=== PATIENT | male | born 1950 | race Caucasian/White ===

== ENCOUNTER 2020-01-31 08:24 | Outpatient (CLI) | payer MEDICARE, OTHER, SELFPAY ==
[2020-01-31 08:49] VITALS: BMI 28.3
--- NOTE | 2020-01-31 08:49 | ECG_ITS ---
NAME OF STUDY: LEXISCAN SESTAMIBI STRESS TEST INDICATION: SOB, WORSENING CHEST PRESSURE, NOTE: Please note that this is the electrocardiogram portion of the Lexiscan/Sestamibi stress test. The perfusion scan will be documented separately. DATA: Baseline heart rate was 88 beats per minute. Baseline blood pressure was 159/81 millimeters of mercury. Target heart rate was 148. Maximum heart rate achieved was 102. which was 68 % of the predicted target heart rate. Maximum blood pressure was 172 millimeters of mercury. The reason for ending the test was completion of the protocol. The patient did not experience any symptoms. ELECTROCARDIOGRAM: BASELINE: Sinus rhythm. Normal axis. Otherwise, no ST-T changes suggestive of ischemia noted. No arrhythmia noted. EXERCISE: After Lexiscan injection, no ST-T changes suggestive of ischemic noted. No arrhythmia noted. 1. EKG not suggestive of ischemia 2. Lexiscan injection unremarkable. 3. Perfusion scan will be documented separately. Electronically Signed On 02-03-2020 18:38:48 CDT by Anne Cervantes M.D. [email or web address]
--- NOTE | 2020-01-31 08:49 | NMCV_ITS ---
NM ajay perf SPECT r/s* [id number] Gm Jean Age: 70 Gender: M : 1950 Exam Date: 01/31/2020 09:45 Ordering Phys: Anne Cervantes MD ([email or web address]) Technologist: BETTINA Stacy Exam Location: [facility] Indications: SOB WORSENING CHEST PRESSURE STRESS TEST Please [facility] IMAGE PROTOCOL Rest/Stress 1 Lexiscan Day Radiopharmaceutical Dose (mCi) Administration Site Administered by Rest: Tc-99m 10.6 IV BETTINA Melendrez Sestamibi Stress:Tc-99m 33.0 IV BETTINA Melendrez Sestamibi Rest: 31-Jan-2020 60 Discovery 630 Stress: 31-Jan-2020 30 Discovery 630 0.4mg Lexiscan. Images obtained in supine and prone position. SPECT RESULTS Technical Quality: Excellent Raw Data Analysis: Normal Image Corrections: No attenuation or motion correction applied Summed Stress Score: 3 Summed Rest Score: 4 Summed Difference Score: 0 PERFUSION FINDINGS Medium-sized area of patchy persistently decreased tracer uptake noted in basal to distal inferior wall suggestive of old myocardial infarction versus scarring. FUNCTIONAL RESULTS (calculated via Gated SPECT) Stress Image LV EF (%): 64 Stress EDV (mL):97 TID: 0.95 Stress ESV (mL):35 Rest Image LV EF (%): 64 FUNCTIONAL FINDINGS: There is normal left ventricular systolic function. IMPRESSIONS Medium-size area of persistently decreased tracer uptake noted in basal to distal inferior wall suggestive of old myocardial infarction versus scarring however cannot rule out artifact as well. EKG segment will be documented separately Anne Cervantes MD (Electronically Signed) Final Date: 31 Jan 2020 16:00 S
--- NOTE | 2020-01-31 10:32 | PC.NURSE ---
STRESS TEST NOTE THE PATIENT WAS UNABLE TO REACH HIS TARGET HR ON THE TREADMILL DUE TO HIS LEGS WEARING OUT AND SOB. DR EASON WAS NOTIFIED AND ORDERS WERE RECEIVED TO CHANGE THE TEST TO A LEXISCAN SESTAMIBI IF THE PATIENT WAS AGREEABLE. THE LEXISCAN WAS EXPLAINED TO THE PATIENT AND HE WISHED TO PROCEED WITH LEXISCAN.
[2020-01-31] MEDS: regadenoson 0.4 Mg/5 ml Syringe IVP (10:43)
[2020-01-31 10:55] VITALS: BP 160/70; PULSE 89
== END 2020-01-31 08:25 | disposition home or self-care (01) ==
LOC: RAD 08:28
PROVIDERS: Visit Provider Internal Medicine Cardiovascular Disease
DX: R06.02 Shortness of breath (principal); R07.89 Other chest pain
CPT/HCPCS: 78452; 93017; A9500; J2785

== ENCOUNTER 2021-08-24 14:47 | Outpatient (RCR) | payer MEDICARE, OTHER, SELFPAY | END 2021-08-24 23:59 | disposition home or self-care (01) | LOC: SPT 14:47 | PROVIDERS: PCP Internal Medicine; Referring Provider Orthopaedic Surgery; Visit Provider Orthopaedic Surgery | DX: M75.82 Other shoulder lesions, left shoulder (principal); M75.81 Other shoulder lesions, right shoulder | CPT/HCPCS: 97110; 97162 ==

== ENCOUNTER 2021-08-25 06:00 | Outpatient (RCR) | payer MEDICARE, OTHER, SELFPAY | END 2021-09-24 23:59 | disposition home or self-care (01) | LOC: SPT 06:00 | PROVIDERS: PCP Internal Medicine; Referring Provider Orthopaedic Surgery; Visit Provider Orthopaedic Surgery | DX: M75.82 Other shoulder lesions, left shoulder (principal); M75.81 Other shoulder lesions, right shoulder | CPT/HCPCS: 97110 ==

== ENCOUNTER 2022-04-23 12:19 | Inpatient (IN) | payer MEDICARE, OTHER, SELFPAY ==
[2022-04-23] VITALS (18 sets, daily range): BP systolic 130–226; BP diastolic 71–97; PULSE 55–77; RESP 10–18; TEMP 36.3–36.4; O2SAT 96–100; BMI 26.4; BMI 28.0
[2022-04-23 12:56] LABS: Glucose Point of Care 283 mg/dL (70-110)
--- NOTE | 2022-04-23 13:25 | CTR_ITS ---
PROCEDURE INFORMATION: Exam: CT Head Without Contrast Exam date and time: 04/23/2022 1:53 PM Age: 72 years old Clinical indication: Altered mental status/memory loss; Confusion or disorientation; TECHNIQUE: Imaging protocol: Computed tomography of the head without contrast. Radiation optimization: All CT scans at this facility use at least one of these dose optimization techniques: automated exposure control; mA and/or kV adjustment per patient size (includes targeted exams where dose is matched to clinical indication); or iterative reconstruction. COMPARISON: CT head wo con* [id number] 09/24/2019 9:06 AM RADIATION DOSE METRICS: Total DLP (mGy-cm): 1079.88 FINDINGS: Brain: There is diffuse cerebral atrophy present, consistent with this patient's age. Periventricular and subcortical white matter low densities are present which at this age likely represent microvascular ischemic change. There are chronic lacunar infarcts in the left basal ganglia and left thalamus.No evidence for large acute ischemic infarction. Please note acute ischemia can be occult by head CT. Cerebral ventricles: No ventriculomegaly. Paranasal sinuses: Visualized sinuses are unremarkable. No fluid levels. Mastoid air cells: Visualized mastoid air cells are well aerated. Bones/joints: Unremarkable. No acute fracture. Soft tissues: Unremarkable. CT/CT head wo con* [id number] IMPRESSION: There are senescent changes of the brain as described above. No evidence for large acute ischemic infarction or acute intracranial injury.
--- NOTE | 2022-04-23 13:25 | XRR_ITS ---
PROCEDURE INFORMATION: Exam: XR Chest Exam date and time: 04/23/2022 2:36 PM Age: 72 years old Clinical indication: Cough and dyspnea; Additional info: Dyspnea/cough TECHNIQUE: Imaging protocol: Radiologic exam of the chest. Views: 1 view. COMPARISON: No relevant prior studies available. FINDINGS: Lungs: Unremarkable. No consolidation. Pleural spaces: Unremarkable. No pleural effusion. No pneumothorax. Heart/Mediastinum: Unremarkable. No cardiomegaly. Bones/joints: Unremarkable. XR/XR chest 1V portable [id number] IMPRESSION: No acute findings.
--- NOTE | 2022-04-23 13:25 | ECG_ITS ---
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 Measurements Intervals [place] Rate: 55 P: 11 MN: 232 QRS: -15 QRSD: 128 T: -12 QT: 432 QTc: 416 Interpretive Statements SINUS BRADYCARDIA WITH FIRST DEGREE AV BLOCK MINIMAL VOLTAGE CRITERIA FOR LVH, CONSIDER NORMAL VARIANT [MEETS CRITERIA IN ONE OF: R(aVL), S(V1), R(V5), R(V5/V6)+S(V1)] INFERIOR MYOCARDIAL INFARCTION , OF INDETERMINATE AGE [40+ ms Q WAVE AND/OR ST/T ABNORMALITY IN II/aVF] Possible old anteroseptal myocardial infarction, probably old Compared to ECG 08/20/2016 03:23:01 Sinus rhythm no longer present Myocardial infarct finding still present Electronically Signed On 04-24-2022 10:31:58 CDT by Margarito Spangler M.D. [id number]
--- NOTE | 2022-04-23 13:27 | ED_ITS ---
HPI - Altered Mental Status General: Chief Complaint: Altered Mental Status Stated Complaint: Diabetic, not eating, or taking meds Time Seen by Provider: 04/23/22 13:24 Source: patient Mode of arrival: ambulatory Limitations: altered mental status History of Present Illness: 72 yo male presents to the ER with complaints of AMS. Patient arrives in the ER with a friend. Evidently he went to their house which was quite some distance away he drove but was unable to get all get himself all the way there he stopped and got direction from somebody also help to get him to their home. They were aware that he was diabetic and thought it was a diabetic issue they fed him last night he seemed to be okay this morning but then went to begin eating again it became a problem. While he was eating this morning and progressive worsening of level of consciousness and awareness. On arrival here he knows where he is at but is not oriented to time person or purpose. He denies any chest pain or shortness of breath his initial glucose on Accu-Chek is 283. MD complaint: altered mental status Severity: mild Consistency of symptoms: Getting Worse Review of Systems Const: Denies: fever(s), chills, body aches, change in appetite, fatigue or malaise ENMT: Denies: throat pain, ear or mastoid pain, nasal discharge or nasal congestion Card: Denies: chest pain, palpitations, edema, dyspnea on exertion or orthopnea Resp: Denies: dyspnea, productive cough or non-productive cough GI: Denies: abdominal pain, nausea, vomiting, hematemesis, coffee ground emesis, diarrhea, constipation, bloating, hematochezia or melena : Denies: flank pain, dysuria, urinary frequency or urinary urgency Skin/Breast: Denies: rash or pruritus PFSH ED PFSH: Medical History B12 deficiency Coronary artery disease Diabetes mellitus GERD (gastroesophageal reflux disease) History of MD (myocardial infarction) HTN (hypertension) IBS (irritable bowel syndrome) Surgical History S/P coronary angiogram S/P vasectomy Family History Mother Stroke Hypertension Father Hypertension Dementia Family/Other Cancer Social History Smoking and tobacco status: never smoked Alcohol intake: never History of recent travel: No Physical Exam Const: EXAM LIMITATIONS: altered mental status GENERAL APPEARANCE: cooperative and comfortable ORIENTATION/CONSCIOUSNESS: Yes awake, Yes oriented to place and Yes confused; not oriented to person and not oriented to time HENMT: COMMON NORMALS: normocephalic and atraumatic HEAD & SCALP: normocephalic and atraumatic Eye: COMMON NORMALS: Equal, round and reactive pupils present, EOMs intact bilaterally, conjunctivae normal and no scleral icterus CONJUNCTIVA: Yes conjunctivae normal PUPIL: Yes Equal, round and reactive pupils present Neck/C-Spine: COMMON NORMALS: full ROM, no lymphadenopathy, supple, no meningeal signs and no JVD GENERAL: Yes normal visual inspection, Yes trachea midline, No anterior neck swelling and No lymphadenopathy Lymph: LYMPHATIC: no lymphadenopathy noted Resp: COMMON NORMALS: normal respiratory effort, No retractions, No use of accessory muscles and clear to auscultation bilaterally AUSCULTATION: clear to auscultation bilaterally Cardio: COMMON NORMALS: no JVD, regular rate and No murmurs present (Cardio) RATE: regular rate GI: COMMON NORMALS: Normal to inspection, nondistended, normoactive bowel sounds present, Soft to palpation, non-tender, No hepatosplenomegaly present, no masses and no bruits PALPATION: Yes Soft to palpation, No Tenderness to palpation present (GI), No Guarding due to palpation present (GI) and Yes No hepatosplenomegaly present Extremity: COMMON NORMALS: normal to inspection, full ROM, capillary refill normal, no clubbing, cyanosis or edema, no calf tenderness and no pedal edema Neuro: SENSORIUM/ORIENTATION: No oriented to person, Yes oriented to place and No oriented to time MENINGEAL SIGNS: Yes no meningeal signs Course Vital Signs: Vital signs: Vital Signs Temperature 98.1 F 04/27/22 15:57 Pulse Rate 64 04/27/22 15:57 Respiratory Rate 16 04/27/22 15:57 Blood Pressure 160/77 04/27/22 15:57 Pulse Oximetry 99 04/27/22 15:57 Oxygen Delivery Me thod 04/27/22 12:00 Oxygen Flow Rate 95 04/24/22 19:43 MDM - Altered Mental Status Medical Decision Making Labs imaging and EKG reviewed. Patient is not a candidate for any kind intervention is well outside of the window. Will admit for altered mental status acute may be due to press for this hypertension. Discussed with hospitalist orders written Medical Records I reviewed the patient's medical records. Lab Data I reviewed the patient's lab results. : 04/27/22 04:43 04/27/22 04:43 Radiology Impressions Chest X-Ray 04/23/22 13:25 IMPRESSION: No acute findings. Head/Neck CTA 04/23/22 14:00 IMPRESSION: No large vessel stenosis or occlusion. IMPRESSION: No stenosis or occlusion. REFERENCES: NASCET CRITERIA. The degree of internal carotid artery stenosis is based on NASCET criteria. Normal is no stenosis. Mild is less than 50% stenosis. Moderate is 50-69% stenosis. Severe is 70% to 99% stenosis. Total occlusion is no detectable patent lumen. Head MRI 04/23/22 16:39 IMPRESSION: 1. There is a 2 mm acute lacunar infarct in the left thalamus. 2. Senescent changes are present the brain as described above. ADDENDUM: 04/23/221927 CRITICAL RESULT: The study was personally discussed on the telephone with Dr. Burgos on 04/23/2022 7:25 PM CDT. The results were understood and acknowledged. Head CT 04/24/22 11:14 IMPRESSION: Evolving tiny infarct in the left thalamus. No acute hemorrhage or other acute findings. Laboratory Results WBC 5.1 10^3/uL (4.0-10.0) 04/24/22 04:33 RBC 4.38 10^6/uL (4.1-5.3) 04/24/22 04:33 Hgb 13.8 g/dL (11.7-16.6) 04/24/22 04:33 Hct 39.8 % (42.0-52.0) L 04/24/22 04:33 MCV 90.9 fl (80-94) 04/24/22 04:33 MCH 31.5 pg (28.0-34.0) 04/24/22 04:33 MCHC 34.7 g/dL (30.0-36.0) 04/24/22 04:33 RDW 12.3 % (12.1-15.1) 04/24/22 04:33 Plt Count 161 10^3/cmm (130-400) 04/24/22 04:33 MPV 10.5 fL (7.4-10.4) H 04/24/22 04:33 Neut % (Auto) 43.6 % 04/24/22 04:33 Lymph % (Auto) 45.3 % 04/24/22 04:33 Ware % (Auto) 8.3 % 04/24/22 04:33 Eos % (Auto) 2.0 % 04/24/22 04:33 Baso % (Auto) 0.6 % 04/24/22 04:33 Neut # (Auto) 2.22 10^3/uL (1.8-7.7) 04/24/22 04:33 Lymph # (Auto) 2.3 10^3/uL (0.8-4.8) 04/24/22 04:33 Ware # (Auto) 0.4 10^3/uL (0.2-0.9) 04/24/22 04:33 Eos # (Auto) 0.1 10^3/uL (0.0-0.8) 04/24/22 04:33 Baso # (Auto) 0.0 10^3/uL (0.0-0.1) 04/24/22 04:33 Nucleated RBC % (auto) 0 % 04/24/22 04:33 Nucleated RBCs # 0.0 /100WBC 04/24/22 04:33 ESR 5 mm/hr (0-10) 04/23/22 13:49 Specimen Type Arterial 04/23/22 14:30 Sample Site Brachial, right 04/23/22 14:30 ABG pH 7.43 (7.35-7.45) 04/23/22 14:30 ABG pCO2 36.5 mmHg (35-45) 04/23/22 14:30 ABG pO2 96.8 mmHg (80.0-100.0) 04/23/22 14:30 ABG HCO3 24.3 mmol/L (22-26) 04/23/22 14:30 ABG O2 Saturation 97.2 04/23/22 14:30 ABG Base Excess 0.3 mmol/L (-2.0-2.0) 04/23/22 14:30 Jagdish Test N/a 04/23/22 14:30 A-a O2 Gradient 1.0 mmHg (5-10) L 04/23/22 14:30 Hematocrit 43.4 % (42-52) 04/23/22 14:30 Hgb O2 Saturation 96.0 % (95-100) 04/23/22 14:30 Carboxyhemoglobin 0.2 %THgb (0.4-20.1) L 04/23/22 14:30 Methemoglobin 1.0 % (0.4-1.5) 04/23/22 14:30 Total Hemoglobin 14.2 g/dL (14-18) 04/23/22 14:30 Sodium 137.0 mmol/L (131-143) 04/23/22 14:30 Potassium 4.3 mmol/L (3.5-5.0) 04/23/22 14:30 Glucose 298.0 mg/dL (70-115) H 04/23/22 14:30 Ionized Calcium 1.2 mmol/L (1.1-1.4) 04/23/22 14:30 O2 Delivery Device Room air 04/23/22 14:30 President [employer] ID Maria Del Rosario 04/23/22 14:30 Sodium 141 mmol/L (136-145) 04/24/22 04:26 Potassium 3.8 mmol/L (3.5-5.1) 04/24/22 04:26 Chloride 104 mmol/L (98-107) 04/24/22 04:26 Carbon Dioxide 23 mmol/L (22-29) 04/24/22 04:26 Anion Gap 17.8 (5-19) 04/24/22 04:26 BUN 21 mg/dL (8-23) 04/24/22 04:26 Creatinine 0.9 mg/dL (0.7-1.2) 04/24/22 04:26 GFR Calculation Not Reportable 04/24/22 04:26 Glucose 143 mg/dL (65-115) H 04/24/22 04:26 POC Glucose 321 mg/dL (70-110) H 04/24/22 11:43 Estimat Average Glucose 232 04/23/22 13:49 Hemoglobin A1c 9.7 % (4.0-6.0) H 04/23/22 13:49 Calculated Osmolality 297 mOsm/kg (285-295) H 04/24/22 04:26 Lactic Acid 2.6 mmol/L (0.5-2.2) H 04/23/22 14:35 Lactic Acid (Sepsis) 2.0 mmol/L (0.5-2.2) 04/23/22 19:40 Calcium 9.3 mg/dL (8.5-10.5) 04/24/22 04:26 Phosphorus Cancelled 04/24/22 04:33 Magnesium Cancelled 04/24/22 04:33 Total Bilirubin 0.6 mg/dL (0.15-1.2) 04/24/22 04:26 AST 19 U/L (0-40) 04/24/22 04:26 ALT 20 U/L (0-41) 04/24/22 04:26 Alkaline Phosphatase 70 IU/L (40-130) 04/24/22 04:26 Ammonia 14 umol/L (16-60) L 04/23/22 22:01 Troponin T Baseline 21 ng/L (0-15) H 04/23/22 13:49 Troponin T 120 Minute Cancelled 04/23/22 19:40 Delta Troponin T Cancelled 04/23/22 19:40 Troponin T Hi Sens 6Hr 24.23 ng/L (0-15) H 04/23/22 19:40 Troponin T Hi Sens 6Hr Delta 3.23 ng/L (0-12) 04/23/22 19:40 C-Reactive Protein 3.0 mg/L (0.0-4.9) 04/23/22 13:49 NT-Pro-B Natriuret Pep Cancelled 04/24/22 04:33 Total Protein 6.0 g/dL (6.6-8.7) L 04/24/22 04:26 Albumin 3.8 g/dL (3.5-5.2) 04/24/22 04:26 Globulin 2.2 g/dL (1.3-4.6) 04/24/22 04:26 Triglycerides Cancelled 04/24/22 04:33 Cholesterol Cancelled 04/24/22 04:33 LDL Cholesterol, Calc Cancelled 04/24/22 04:33 HDL Cholesterol Cancelled 04/24/22 04:33 LDL/HDL Ratio Cancelled 04/24/22 04:33 Cholesterol/HDL Ratio Cancelled 04/24/22 04:33 Procalcitonin 0.04 ng/mL (0-0.5) 04/23/22 13:49 TSH 3.09 uIU/mL (0.27-4.20) 04/23/22 13:49 Urine Color Yellow (Yellow) 04/23/22 14:08 Urine Appearance Clear (CLEAR) 04/23/22 14:08 Urine pH 5 (5-7) 04/23/22 14:08 Ur Specific [place] 1.015 (1.005-1.030) 04/23/22 14:08 Urine Protein Neg (Negative) 04/23/22 14:08 Urine Glucose (UA) 4+ (Normal) H 04/23/22 14:08 Urine Ketones Negative (Negative) 04/23/22 14:08 Urine Blood Neg (Negative) 04/23/22 14:08 Urine Nitrate Negative (Negative) 04/23/22 14:08 Urine Bilirubin Neg (Negative) 04/23/22 14:08 Urine Urobilinogen Norm mg/dL (Negative) 04/23/22 14:08 Ur Leukocyte Esterase Negative (Negative) 04/23/22 14:08 Salicylates < 0.3 mg/dL (3-10) L 04/23/22 13:49 Urine Opiates Screen Negative ng/mL (Negative) 04/23/22 23:30 Acetaminophen < 5.0 ug/mL (10-30) L 04/23/22 13:49 Ur Barbiturates Screen Negative ng/mL (Negative) 04/23/22 23:30 Ur Phencyclidine Scrn Negative ng/mL (Negative) 04/23/22 23:30 Ur Amphetamines Screen Negative ng/mL (Negative) 04/23/22 23:30 U Benzodiazepines Scrn Negative ng/mL (Negative) 04/23/22 23:30 Urine Cocaine Screen Negative ng/mL (Negative) 04/23/22 23:30 U Marijuana (THC) Screen Negative ng/mL (Negative) 04/23/22 23:30 Ethyl Alcohol < 10 mg/dL (0-10) 04/23/22 13:49 Serum Ketones Negative (Negative) 04/23/22 13:49 Discharge Plan Discharge Patient Disposition: Admitted As Inpatient Admit Provider: Darnell Miranda Clinical Impression: Delirium due to general medical condition, PRES (posterior reversible encephalopathy syndrome), HTN (hypertension), Diabetic peripheral neuropathy associated with type 2 diabetes mellitus Condition: Stable Discharge Diet: Cardiac and Diabetic Discharge Activity: Increase activity as tolerated, Limit activity as instructed and As per PT/OT instructions Coding Level of Care Code 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
--- NOTE | 2022-04-23 14:00 | CTR_ITS ---
PROCEDURE INFORMATION: Exam: CTA Head With Contrast, Arteriography Exam date and time: 04/23/2022 3:29 PM Age: 72 years old Clinical indication: Other: AMS - confusion TECHNIQUE: Imaging protocol: Computed tomographic angiography of the head with contrast. Exam focused on the arteries. 3D rendering (Not supervised by radiologist): MIP and/or 3D reconstructed images were created by the technologist. Radiation optimization: All CT scans at this facility use at least one of these dose optimization techniques: automated exposure control; mA and/or kV adjustment per patient size (includes targeted exams where dose is matched to clinical indication); or iterative reconstruction. Contrast material: OMNI 350; Contrast volume: 95 ml; Contrast route: INTRAVENOUS (IV); COMPARISON: CT head wo con* [id number] 04/23/2022 1:53 PM RADIATION DOSE METRICS: Total DLP (mGy-cm): 415.02 FINDINGS: ANTERIOR CIRCULATION: Right internal carotid artery: There is scattered atherosclerotic plaque in the carotid siphons with luminal irregularity however no significant focal stenosis. Intracranial segment is patent with no significant stenosis. No aneurysm. Right middle cerebral artery: Unremarkable. No occlusion or significant stenosis. No aneurysm. Right anterior cerebral artery: Unremarkable. No occlusion or significant stenosis. No aneurysm. Left internal carotid artery: There is scattered atherosclerotic plaque in the carotid siphons with luminal irregularity however no significant focal stenosis. Intracranial segment is patent with no significant stenosis. No aneurysm. Left middle cerebral artery: Unremarkable. No occlusion or significant stenosis. No aneurysm. Left anterior cerebral artery: Unremarkable. No occlusion or significant stenosis. No aneurysm. POSTERIOR CIRCULATION: Right vertebral artery: Unremarkable. No occlusion or significant stenosis. No aneurysm. Left vertebral artery: Unremarkable. No occlusion or significant stenosis. No aneurysm. Basilar artery: Unremarkable. No occlusion or significant stenosis. No aneurysm. Right posterior cerebral artery: Unremarkable. No occlusion or significant stenosis. No aneurysm. Left posterior cerebral artery: Unremarkable. No occlusion or significant stenosis. No aneurysm. Brain: No definite mass, mass effect, or midline shift. Cerebral ventricles: No ventriculomegaly. Bones/joints: Unremarkable. No acute fracture. Soft tissues: Unremarkable. PROCEDURE INFORMATION: Exam: CTA Neck With Contrast Exam date and time: 04/23/2022 3:29 PM Age: 72 years old Clinical indication: Other: AMS - confusion TECHNIQUE: Imaging protocol: Computed tomographic angiography of the neck with contrast. 3D rendering (Not supervised by radiologist): MIP and/or 3D reconstructed images were created by the technologist. Radiation optimization: All CT scans at this facility use at least one of these dose optimization techniques: automated exposure control; mA and/or kV adjustment per patient size (includes targeted exams where dose is matched to clinical indication); or iterative reconstruction. Contrast material: OMNI 350; Contrast volume: 95 ml; Contrast route: INTRAVENOUS (IV); COMPARISON: CT head wo con* [id number] 04/23/2022 1:53 PM RADIATION DOSE METRICS: Total DLP (mGy-cm): 415.02 FINDINGS: Right common carotid artery: No stenosis. No dissection or occlusion. Right internal carotid artery: No stenosis of the extracranial segment. No dissection or occlusion. Right external carotid artery: No occlusion or stenosis of the origin. Left common carotid artery: No stenosis. No dissection or occlusion. Left internal carotid artery: No stenosis of the extracranial segment. No dissection or occlusion. Left external carotid artery: No occlusion or stenosis of the origin. Right vertebral artery: No stenosis. No dissection or occlusion. Left vertebral artery: No stenosis. No dissection or occlusion. Soft tissues: Normal. No significant soft tissue swelling. Bones/joints: No acute fracture. CT/CT angio headneck* [id number] IMPRESSION: No large vessel stenosis or occlusion. IMPRESSION: No stenosis or occlusion. REFERENCES: NASCET CRITERIA. The degree of internal carotid artery stenosis is based on NASCET criteria. Normal is no stenosis. Mild is less than 50% stenosis. Moderate is 50-69% stenosis. Severe is 70% to 99% stenosis. Total occlusion is no detectable patent lumen.
[2022-04-23 14:03] LABS: Basophils % 0.8 %; Eosinophils # 0.1 10^3/uL (0.0-0.8); Eosinophils % 1.8 %; Hematocrit 42.5 % (42.0-52.0); Hemoglobin 14.5 g/dL (11.7-16.6); Lymphocytes # 1.7 10^3/uL (0.8-4.8); Lymphocytes % 33.7 %; Mean Corpuscular HGB Conc 34.1 g/dL (30.0-36.0); Mean Corpuscular Hemoglobin 31.3 pg (28.0-34.0); Mean Corpuscular Volume 91.6 fl (80-94); Mean Platelet Volume 10.5 fL (7.4-10.4); Monocytes # 0.4 10^3/uL (0.2-0.9); Neutrophils # 2.83 10^3/uL (1.8-7.7); Neutrophils % 56.5 %; Nucleated Red Blood Cells % 0 %; Platelet Count 164 10^3/cmm (130-400); Red Blood Count 4.64 10^6/uL (4.1-5.3); Red Cell Distribution Width 12.3 % (12.1-15.1)
[2022-04-23 14:14] LABS: Add Urine Microscopic? NO; Charge for UA Resulting for Rev
--- NOTE | 2022-04-23 14:29 | PC.PHAR ---
pt is unable to verify medications - pt states he fills at [facility] in [place] - [facility] states last fill was Isosorbide [place] ER 30mg 1/2 tablet BID on 11/05/20, Farxiga last filled in 2019 (never picked up), Glipizide XL 10mg once daily and Metformin ER 500mg 2BID in 2019 (never picked up)
[2022-04-23 14:31] LABS: Bilirubin Urine Neg (Negative); Blood Urine Neg (Negative); Glucose Urine UA 4+ (Normal); Ketones Urine Negative (Negative); Nitrate Urine Negative (Negative); Protein Urine Neg (Negative); Specific Gravity, Urine 1.015 (1.005-1.030); Urine Appearance Clear (CLEAR); Urine Color Yellow (Yellow); pH Urine 5 (5-7)
[2022-04-23 14:32] LABS: Leukocyte Esterase Urine Negative (Negative); Urobilinogen Urine Norm (Negative)
[2022-04-23 14:36] LABS: ABG PCO2 36.5 mmHg (35-45); ABG PH Result 7.43 (7.35-7.45); Arterial Blood Gas Hematocrit 43.4 % (42-52); Base Excess ABG 0.3 mmol/L (-2.0-2.0); Blood Gas Sample Site Brachial, right; Blood Gas Sample Type Arterial; Carboxyhemoglobin 0.2 %THgb (0.4-20.1); HCO3 ABG 24.3 mmol/L (22-26); Ionized Calcium Level - ABG 1.2 mmol/L (1.1-1.4); Oxygen Device ROOM AIR; Oxygen Saturation ABG 97.2; PO2 ABG 96.8 mmHg (80.0-100.0); Potassium Level - ABG 4.3 mmol/L (3.5-5.0); Total Hemoglobin 14.2 g/dL (14-18)
[2022-04-23 14:40] LABS: Alanine Aminotransferase 24 U/L (0-41); Albumin Level 4.1 g/dL (3.5-5.2); Alkaline Phosphatase 79 IU/L (40-130); Blood Urea Nitrogen 22 mg/dL (8-23); Calcium 9.3 mg/dL (8.5-10.5); Carbon Dioxide 25 mmol/L (22-29); Chloride 97 mmol/L (98-107); Globulin 2.6 g/dL (1.3-4.6); Glucose 270 mg/dL (65-115); Osmolality Calculated 293 mOsm/kg (285-295); Sodium 135 mmol/L (136-145); Total Bilirubin 0.9 mg/dL (0.15-1.2); Total Protein 6.7 g/dL (6.6-8.7)
[2022-04-23 14:41] LABS: Troponin(5th) Baseline 21 ng/L (0-15)
[2022-04-23 14:48] LABS: Anion Gap 17.5 (5-19); Aspartate Amino Transferase 21 U/L (0-40); Potassium 4.5 mmol/L (3.5-5.1)
[2022-04-23 15:02] LABS: Lactic Sepsis W/Reflex 2.6 mmol/L (0.5-2.2)
[2022-04-23 15:34] LABS: Ketone (Acetest) Serum Negative (Negative)
[2022-04-23] MEDS: iohexol 350 mg/mL 100 mL Btl IV (15:35)
[2022-04-23 16:25] LABS: Reflex Lactate Order REFLEX LACTIC ORDERD
--- NOTE | 2022-04-23 16:33 | PC.NURSE ---
Daughter- Mena Jean [phone] Son- Gm Jean [phone] Family friend who brought Gm to - Dania Simmons [phone]
[2022-04-23] MEDS: hyDRALAzine 20 mg/mL INJ 1 mL 10 MG IVP (16:35)
[2022-04-23] MEDS: amlodipine 10 mg Tablet PO (16:35)
--- NOTE | 2022-04-23 16:39 | MRR_ITS ---
PROCEDURE INFORMATION: Exam: MR Head Without Contrast Exam date and time: 04/23/2022 6:25 PM Age: 72 years old Clinical indication: Altered mental status/memory loss; Additional info: Pres syndrome TECHNIQUE: Imaging protocol: Magnetic resonance imaging of the head without contrast. COMPARISON: CT head wo con* [id number] 04/23/2022 1:53 PM FINDINGS: Brain: There is 2 mm focus of restricted diffusion at the posterior aspect of the left thalamus with associated increased T2 and FLAIR signal, consistent with an acute lacunar infarct. There are small chronic lacunar infarcts in the right centrum semiovale and left lentiform nucleus. No large wedge-shaped acute ischemic infarction. There is diffuse cerebral atrophy present, consistent with this patient's age. There are multiple foci of high T2 and FLAIR signal in the periventricular and subcortical white matter of the bilateral cerebral hemispheres, which at this age likely represent microvascular ischemic changes. Cerebral ventricles: Normal. No ventriculomegaly. Bones/joints: Unremarkable. Paranasal sinuses: There is mucosal thickening in the right sphenoid sinus. Mastoid air cells: Normal as visualized. No mastoid effusion. Orbital cavities: Unremarkable. Soft tissues: Unremarkable. MR/MR head wo con* [id number] IMPRESSION: 1. There is a 2 mm acute lacunar infarct in the left thalamus. 2. Senescent changes are present the brain as described above.
--- NOTE | 2022-04-23 16:41 | P.HP_ITS ---
Providers/Chief Complaint Admitting Physician: Darnell Miranda MD Primary Care Provider: Иван Chamberlain DO Chief Complaint: Diabetic, not eating, or taking meds History of Present Illness Gm Jean is a 72 year old male with a past medical history of nonobstructive CAD, had an angiogram which showed 40% LAD disease, obtuse marginal 1 had 60 to 70% disease, RCA had 60% disease, on medical management, hypertension, he is not really taking any medications, [id number] type 2 diabetes mellitus, who presents [facility] for acute confusion. Currently patient is alert to person, place, not to time, tells me [place] is a president, he does not remember what he had for breakfast this morning, he does not really remember the events of yesterday, he does not remember his address, he recognizes his friend Dania at bedside, a lot of his memory is foggy, has short-term memory loss, long-term memory loss no facial droop no slurring of words, no facial process, no focal weakness, at times does have trouble following commands, but eventually gets most of my questions correctly, such as squeezing my fingers, wiggling his toes, no facial droop no slurring of his words, no focal weakness, currently blood pressures 190s over 90, normal sinus rhythm, 100% on room air, afebrile, no neck pain, neck stiffness, no shortness of breath, no dysuria, hematuria, no abdominal pain, no diarrhea, recent antibiotic use, no drug use, does not for drinking 2 beers last night, Dania at bedside confirms, there was a a gathering he attended yesterday, but he cannot really remember who attended a gathering, some of them were not he does remember he had catfish yesterday, he is not really taking her medication, not sure why, not taking any anticoagulations, does not take any diabetic medications, yesterday evening. 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 They were worried about him going home, so he slept over, this morning he continued to have episodes of confusion, no seizure-like episodes no strokelike symptoms, so they gave him something to eat, but that seemed to make his symptoms worse. Recently patient's back in August. Does report drinking 2 beers yesterday, denies a history of alcoholism, denies any drug use, denies taking any medications he is not supposed to take, he tells me in fact he does not like taking medication Review of Systems 2 Const: Denies: fever(s) Eyes: Reports: change in vision and blurry vision Card: Denies: chest pain Resp: Denies: dyspnea GI: Denies: abdominal pain : Denies: dysuria Musc: Reports: back pain Skin/Breast: Denies: rash Neuro: Reports: confusion and behavioral changes; Denies: headache(s), numbness in extremities, weakness in extremities, sensory changes, lack of coordination, difficulty walking, frequent falls, dizziness, Slurred speech present, difficulty communicating thoughts or seizure-like activity Medications/Allergies Home Medications Medication Instructions Recorded Confirmed Last Taken Type No Known Home Medications 04/23/22 04/23/22 Unknown History Allergies Allergy/AdvReac Type Severity Reaction Status Date / Time Penicillins Allergy Unknown Unknown Verified 07/06/21 10:18 PFSH Acute PFSH: Medical History (Updated 04/23/22 @ 16:47 by Darnell Miranda MD) Coronary artery disease Diabetes mellitus GERD (gastroesophageal reflux disease) History of PR (myocardial infarction) HTN (hypertension) IBS (irritable bowel syndrome) Surgical History (Updated 04/23/22 @ 16:46 by Darnell Miranda MD) S/P coronary angiogram S/P vasectomy Family History Mother Stroke Hypertension Father Hypertension Dementia Family/Other Cancer Social History Smoking and tobacco status: never smoked Vitals/I&O/Wt Last Vital Signs Temp 97.3 F L 04/23/22 12:50 Pulse 59 L 04/23/22 16:23 Resp 16 04/23/22 16:23 BP 194/91 04/23/22 16:23 Pulse Ox 99 04/23/22 16:23 O2 Del Method 04/23/22 16:23 Weight last 48 hrs Weight 90.718 kg Physical Exam Const: COMMON NORMALS: no acute distress OTHER: Alert to person, to place he knows in the hospital, does not know which town he is in, does not know the date, thinks [place] is a president, has short-term memory loss, long-term memory loss, does have trouble following commands, but eventually does follow neurologic testing HENMT: COMMON NORMALS: normocephalic HEAD & SCALP: normocephalic Neck/C-Spine: COMMON NORMALS: no JVD Resp: COMMON NORMALS: normal respiratory effort, No retractions, No use of accessory muscles and clear to auscultation bilaterally AUSCULTATION: clear to auscultation bilaterally Cardio: COMMON NORMALS: no JVD, regular rate, regular rhythm, S1 normal heart sound present and S2 normal heart sound present RATE: regular rate RHYTHM: regular rhythm HEART SOUNDS: S1 normal heart sound present and S2 normal heart sound present GI: COMMON NORMALS: Normal to inspection, nondistended, normoactive bowel sounds present, Soft to palpation, non-tender, No hepatosplenomegaly present, no masses and no bruits PALPATION: Yes Soft to palpation and Yes No hepatosplenomegaly present Extremity: COMMON NORMALS: capillary refill normal, no clubbing, cyanosis or edema, no calf tenderness and no pedal edema Neuro: COMMON NORMALS: CN's II-XII intact bilaterally, moves all extremities, no focal motor deficits and no sensory deficits noted Psych: COMMON NORMALS: mental status grossly normal Data : 04/23/22 13:49 04/23/22 13:49 A&P Assessment and plan (1) PRES (posterior reversible encephalopathy syndrome): Status: Acute (2) Acute confusion: Status: Acute Plan Acute confusion -Likely either hypertensive encephalopathy versus press syndrome, I favor press syndrome given his blood pressures that are not significantly high -190/90 -CT head no acute bleed -CTA no acute findings, no significant stenosis -UA unremarkable, -TSH unremarkable -Chest x-ray unremarkable -Electrolytes unremarkable -Not in atrial fibrillation -We will order MRI of the brain -We will order cardiac echo -Neurochecks, aspiration precautions, night stroke scale -Telemetry monitoring -Aspirin, statin -Has received multiple blood pressure medications remains hypertensive -We will start on a Cardene drip -Hyperglycemia, no evidence of DKA, anion gap within normal limits, start low- dose sliding scale, check A1c -Full code -Lovenox for DVT prophylaxis Attestations Medical Necessity Statement*: Patient requires exertion, outpatient observation, for posterior reversible encephalopathy syndrome versus hypertensive encephalopathy Coding Level of Care Code 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
[2022-04-23 16:45] LABS: Procalcitonin 0.04 ng/mL (0-0.5); Thyroid Stimulating Hormone 3.09 uIU/mL (0.27-4.20)
--- NOTE | 2022-04-23 16:51 | ECG_ITS ---
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 Measurements Intervals [place] Rate: 63 P: 5 UT: 225 QRS: -26 QRSD: 93 T: -11 QT: 397 QTc: 406 Interpretive Statements SINUS RHYTHM WITH FIRST DEGREE AV BLOCK BORDERLINE LEFT AXIS DEVIATION [QRS AXIS < -20] MINIMAL VOLTAGE CRITERIA FOR LVH, CONSIDER NORMAL VARIANT [MEETS CRITERIA IN ONE OF: R(aVL), S(V1), R(V5), R(V5/V6)+S(V1)] Possible old anterior and inferior myocardial infarctions Compared to ECG 04/23/2022 13:48:34 Sinus bradycardia no longer present Electronically Signed On 04-24-2022 10:33:30 CDT by Margarito Spangler M.D. [id number]
[2022-04-23 16:56] LABS: Magnesium 1.7 mg/dL (1.7-2.3)
[2022-04-23 16:59] LABS: Erythrocyte Sedimentation Rate 5 mm/hr (0-10)
[2022-04-23 18:05] LABS: Estmated Average Glucose 232; Hemoglobin A1C 9.7 % (4.0-6.0)
--- NOTE | 2022-04-23 19:20 | ECG_ITS ---
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 Measurements Intervals [place] Rate: 70 P: 2 MI: 212 QRS: -28 QRSD: 97 T: -3 QT: 400 QTc: 433 Interpretive Statements SINUS RHYTHM WITH FIRST DEGREE AV BLOCK MINIMAL VOLTAGE CRITERIA FOR LVH, CONSIDER NORMAL VARIANT [MEETS CRITERIA IN ONE OF: R(aVL), S(V1), R(V5), R(V5/V6)+S(V1)] INFERIOR MYOCARDIAL INFARCTION , PROBABLY OLD [40+ ms Q WAVE AND/OR ST/T ABNORMALITY IN II/aVF] ANTEROSEPTAL MYOCARDIAL INFARCTION , OF INDETERMINATE AGE [40+ ms Q WAVE IN V1-V4] Compared to ECG 04/23/2022 16:51:57 Myocardial infarct finding now present Electronically Signed On 04-24-2022 10:38:04 CDT by Margarito Spangler M.D. [id number]
[2022-04-23 20:45] LABS: Troponin 5 6HR 24.23 ng/L (0-15); Troponin 5 6HR Delta 3.23 ng/L (0-12)
[2022-04-23 22:11] LABS: Acetaminophen < 5.0 ug/mL (10-30); Alcohol Level < 10 mg/dL (0-10); Salicylate < 0.3 mg/dL (3-10)
[2022-04-23 22:23] LABS: Ammonia 14 umol/L (16-60)
[2022-04-23] MEDS: atorvastatin 40 mg Tablet PO (22:39)
[2022-04-23] MEDS: aspirin 81 mg EC Tablet PO (22:39)
[2022-04-23] MEDS: heparin 5,000 unit/mL INJ 1 mL 5000 UNIT SUBCUT (22:40)
[2022-04-23 22:52] LABS: Glucose Point of Care 291 mg/dL (70-110)
[2022-04-23] MEDS: insulin lispro 100 unit/1 mL SUBCUT (22:58)
[2022-04-23] MEDS: nicardipine 20 MG/200 ML PREMIX 50 MG IV (23:04)
[2022-04-23 23:47] LABS: Amphetamines Screen Urine Negative (Negative); Barbiturates Screen Urine Negative (Negative); Benzodiazepines Screen Urine Negative (Negative); Cocaine Screen Urine Negative (Negative); Opiate Screen Urine Negative (Negative); PCP Screen Urine Negative (Negative); THC Screen Urine Negative (Negative)
[2022-04-24] VITALS (10 sets, daily range): BP systolic 121–181; BP diastolic 66–86; PULSE 56–71; RESP 14–20; TEMP 36.2–36.8; O2SAT 97–98
[2022-04-24 04:45] LABS: Basophils % 0.6 %; Eosinophils # 0.1 10^3/uL (0.0-0.8); Hematocrit 39.8 % (42.0-52.0); Hemoglobin 13.8 g/dL (11.7-16.6); Lymphocytes # 2.3 10^3/uL (0.8-4.8); Lymphocytes % 45.3 %; Mean Corpuscular HGB Conc 34.7 g/dL (30.0-36.0); Mean Corpuscular Hemoglobin 31.5 pg (28.0-34.0); Mean Corpuscular Volume 90.9 fl (80-94); Mean Platelet Volume 10.5 fL (7.4-10.4); Monocytes # 0.4 10^3/uL (0.2-0.9); Monocytes % 8.3 %; Neutrophils # 2.22 10^3/uL (1.8-7.7); Neutrophils % 43.6 %; Nucleated Red Blood Cells % 0 %; Platelet Count 161 10^3/cmm (130-400); Red Blood Count 4.38 10^6/uL (4.1-5.3); Red Cell Distribution Width 12.3 % (12.1-15.1); White Blood Count 5.1 10^3/uL (4.0-10.0)
[2022-04-24] MEDS: nicardipine 20 MG/200 ML PREMIX 30 MG IV (05:16)
[2022-04-24 05:45] LABS: Alanine Aminotransferase 20 U/L (0-41); Albumin Level 3.8 g/dL (3.5-5.2); Alkaline Phosphatase 70 IU/L (40-130); Blood Urea Nitrogen 21 mg/dL (8-23); Calcium 9.3 mg/dL (8.5-10.5); Carbon Dioxide 23 mmol/L (22-29); Chloride 104 mmol/L (98-107); Chol HDL Ratio 6.05 mg/dL (1.0-5.00); Cholesterol 230 mg/dL (0-200); Globulin 2.2 g/dL (1.3-4.6); Glucose 143 mg/dL (65-115); HDL Cholesterol 38 mg/dL (60-100); LDL Cholesterol Calculated 119 mg/dL (50-129); LDL HDL Ratio 3.13 RATIO (0.00-3.22); Magnesium 1.6 mg/dL (1.7-2.3); NT Pro B Type Natriuretic Pept 169 pg/mL (0-125); Osmolality Calculated 297 mOsm/kg (285-295); Phosphorus 3.1 mg/dL (2.5-4.5); Sodium 141 mmol/L (136-145); Total Bilirubin 0.6 mg/dL (0.15-1.2); Triglycerides 367 mg/dL (0-150)
[2022-04-24 05:49] LABS: Anion Gap 17.8 (5-19); Aspartate Amino Transferase 19 U/L (0-40); Potassium 3.8 mmol/L (3.5-5.1)
[2022-04-24 06:28] LABS: Glucose Point of Care 185 mg/dL (70-110)
--- NOTE | 2022-04-24 06:46 | PC.NURSE ---
alexandra gtt paused, bp 113/71
[2022-04-24] MEDS: aspirin 81 mg EC Tablet PO (08:18)
[2022-04-24] MEDS: insulin lispro 100 unit/1 mL SUBCUT ×3 (08:18→18:12)
[2022-04-24] MEDS: pantoprazole DR 40 mg Tablet PO (08:18)
[2022-04-24] MEDS: heparin 5,000 unit/mL INJ 1 mL 5000 UNIT SUBCUT ×2 (11:12→21:03)
--- NOTE | 2022-04-24 11:14 | CTR_ITS ---
PROCEDURE INFORMATION: Exam: CT Head Without Contrast Exam date and time: 04/24/2022 11:25 AM Age: 72 years old Clinical indication: Other: AMS, has thalamic CVA on left, increase confusion, R/O TECHNIQUE: Imaging protocol: Computed tomography of the head without contrast. Radiation optimization: All CT scans at this facility use at least one of these dose optimization techniques: automated exposure control; mA and/or kV adjustment per patient size (includes targeted exams where dose is matched to clinical indication); or iterative reconstruction. COMPARISON: MR head wo con* [id number] 04/23/2022 6:25 PM RADIATION DOSE METRICS: Total DLP (mGy-cm): 1120.23 FINDINGS: Brain: Evolving tiny infarct in the left thalamus. No new areas of acute large vascular territory ischemia. Patchy hypoattenuation in the periventricular and subcortical white matter, consistent with chronic small vessel ischemia. No acute hemorrhage. No mass effect. Cerebral ventricles: No ventriculomegaly. Paranasal sinuses: Visualized sinuses are unremarkable. No fluid levels. Mastoid air cells: Visualized mastoid air cells are well aerated. Bones/joints: Unremarkable. No acute fracture. Soft tissues: Unremarkable. CT/CT head wo con* [id number] IMPRESSION: Evolving tiny infarct in the left thalamus. No acute hemorrhage or other acute findings.
[2022-04-24 12:09] LABS: Glucose Point of Care 321 mg/dL (70-110)
[2022-04-24] MEDS: sodium chloride 0.9% 1,000 ML 75 ML IV (12:31)
--- NOTE | 2022-04-24 13:51 | PM.PN ---
Subjective Subjective: -Last night patient had an MRI of the brain which showed acute lacunar infarct, left thalamus -NIH stroke scale 1, out of tPA window as last known well normal was 5 PM Monday Patient was examined multiple times throughout the morning -Early in the morning he was working with physical therapy, -I cannot discern any focal neurologic deficits, no focal weakness, no slurring of words, no facial droop, no pronounced visual deficits -He does have significant short-term memory loss, when asked what he had for breakfast, he told me toast, but roughly 20 seconds later, he asked me if he had toast -He does not remember his address, does not know the year, knows the president, knows that he is in the hospital knows his name, but does not know his address -He does fully follow commands, -But some of his storytelling is nonsensical, no seizure-like episodes, no saccadic eye movements, he sitting up in chair, smiling, he is able to ambulate he is able to have a full discussion with physical therapy, Occupational Therapy -I was certainly concerned, as patient is fairly highly functional 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, however I do not know his baseline level of cognitive functioning, I do not know if he has a history of dementia, his did pass away in August -Repeat CT of the head shows no evidence of hemorrhage, no evidence of bleeding, does show evolution of left thalamic stroke -Again he has no focal neurologic deficit that I can discern his NIH stroke scale remains 1 no evidence of UTI, no evidence of pneumonia, no significant Temi abnormalities, sugars have been running high which I am titrating, does have poorly controlled type 2 diabetes, has not been taking medication, his echocardiogram is within reasonable range, no significant telemetry events -I discussed the case in detail with physician at [facility], savanna Vides, who recommended continue medical management, -Certainly the location of the stroke could explain his persistent confusion, -In the afternoon I did speak to patient's daughter, phone [phone] updated family on clinical status, discussed my concerns as above, left thalamic stroke, he intermittently does continue to have episodes of confusion agitation which improved with reorientation, likely related to stroke, however I have ordered an EEG we will see with Dr. Subramanian's assess tomorrow continue to monitor him, he likely will require some sort of monitoring by family members when he does go home I do not feel that he safe to go home by himself at this point, he does require optimal medical management given his diabetes A1c 9.7, cholesterol 230, triglycerides 367, his not been taking care of himself not taking his medications, I also wonder if he has some degree of dementia as his brain does show senescent changes, and as he is here in the hospital, not familiar faces, no good indications of time, why figueroa as may be an underlying dementia process becoming more prevalent however certainly the stroke could be significant component -We will continue to monitor him, and further evaluation work-up pending his clinical progress -Family voiced understanding, all questions answered, agreed to proceed Vitals/I&O/Wt Last Vital Signs Temp 98.2 F 04/24/22 08:00 Pulse 66 04/24/22 08:00 Resp 17 04/24/22 08:00 BP 124/84 04/24/22 08:00 Pulse Ox 98 04/24/22 08:00 O2 Del Method 04/24/22 08:00 04/23/22 04/24/22 04/24/22 22:59 06:59 14:59 Intake Total 120 / 120 223.667 / 343.667 360 / 360 Output Total 200 / 200 Balance 120 / 120 23.667 / 143.667 360 / 360 Weight last 48 hrs Weight 96.343 kg Weight 90.718 kg Physical Exam Const: COMMON NORMALS: no acute distress Resp: COMMON NORMALS: normal respiratory effort, No retractions, No use of accessory muscles and clear to auscultation bilaterally AUSCULTATION: clear to auscultation bilaterally Cardio: COMMON NORMALS: regular rate, regular rhythm, S1 normal heart sound present and S2 normal heart sound present RATE: regular rate RHYTHM: regular rhythm HEART SOUNDS: S1 normal heart sound present and S2 normal heart sound present GI: COMMON NORMALS: Normal to inspection, nondistended, normoactive bowel sounds present, Soft to palpation and non-tender PALPATION: Yes Soft to palpation Extremity: COMMON NORMALS: no pedal edema Neuro: COMMON NORMALS: CN's II-XII intact bilaterally, moves all extremities, no focal motor deficits and no sensory deficits noted OTHER: Alert to person, to place, not to time, he does know the president, does have significant short-term memory loss, does not know his address, I have to repeat my questioning, he forgets the question at times as soon as I ask him Psych: COMMON NORMALS: mental status grossly normal Data : 04/24/22 04:33 04/24/22 04:26 Micro: Microbiology 04/23/22 19:44 Blood Culture - Preliminary Blood SPECIMEN COLLECTED 04/23/22 19:40 Blood Culture - Preliminary Blood SPECIMEN COLLECTED A&P Assessment and plan (1) Cerebrovascular accident (CVA) of left thalamus: Status: Acute (2) Acute confusion: Status: Acute (3) PRES (posterior reversible encephalopathy syndrome): Status: Acute Plan Acute confusion -CT head on admssion Brain: There is diffuse cerebral atrophy present, consistent with this patient's age. Periventricular and subcortical white matter low densities are present which at this age likely represent microvascular ischemic change. There are chronic lacunar infarcts in the left basal ganglia and left thalamus.No evidence for large acute ischemic infarction. Please note acute ischemia can be occult by head CT. Cerebral ventricles: No ventriculomegaly. Paranasal sinuses: Visualized sinuses are unremarkable. No fluid levels. Mastoid air cells: Visualized mastoid air cells are well aerated. -CTA head and neck -Right common carotid artery: No stenosis. No dissection or occlusion. Right internal carotid artery: No stenosis of the extracranial segment. No dissection or occlusion. Right external carotid artery: No occlusion or stenosis of the origin.? Left common carotid artery: No stenosis. No dissection or occlusion. Left internal carotid artery: No stenosis of the extracranial segment. No dissection or occlusion. Left external carotid artery: No occlusion or stenosis of the origin.? Right vertebral artery: No stenosis. No dissection or occlusion. Left vertebral artery: No stenosis. No dissection or occlusion. Soft tissues: Normal. No significant soft tissue swelling. Bones/joints: No acute fracture. MRI brain Brain: There is 2 mm focus of restricted diffusion at the posterior aspect of the left thalamus with associated increased T2 and FLAIR signal, consistent with an acute lacunar infarct. There are small chronic lacunar infarcts in the right centrum semiovale and left lentiform nucleus. No large wedge-shaped acute ischemic infarction. There is diffuse cerebral atrophy present, consistent with this patient's age. There are multiple foci of high T2 and FLAIR signal in the periventricular and subcortical white matter of the bilateral cerebral hemispheres, which at this age likely represent microvascular ischemic changes. Cerebral ventricles: Normal. No ventriculomegaly. Bones/joints: Unremarkable. Paranasal sinuses: There is mucosal thickening in the right sphenoid sinus. Mastoid air cells: Normal as visualized. No mastoid effusion. Orbital cavities: Unremarkable. Soft tissues: Unremarkable. CT head today Brain: Evolving tiny infarct in the left thalamus. No new areas of acute large vascular territory ischemia. Patchy hypoattenuation in the periventricular and subcortical white matter, consistent with chronic small vessel ischemia. No acute hemorrhage. No mass effect. Cerebral ventricles: No ventriculomegaly. Paranasal sinuses: Visualized sinuses are unremarkable. No fluid levels. Mastoid air cells: Visualized mastoid air cells are well aerated. Bones/joints: Unremarkable. No acute fracture. Soft tissues: Unremarkable. cardiac echo The left ventricle is not well seen.? The size and function are ?likely normal.? No obvious wall motion disturbances.? Ejection ?fraction is about 55%.? Grade 1 diastolic dysfunction. ?Structurally normal trileaflet aortic valve. Mild aortic valve ?regurgitation. ?The aortic root is mildly dilated.? The average measurement is ?approximately 40 mm. -Last known well normal possibly Monday at 5 PM -NIH stroke scale 1, out of tPA window -Acute confusion, more short-term memory loss, some degree of long-term memory loss, follows commands, no focal neurologic deficits, following all commands, requires repeating of questioning, often forgets midsentence question asked, does have episodes of confusion, pulling on telemetry wires, but easily reorients able -UA unremarkable, -TSH unremarkable -Blood alcohol level within normal limits -Urine toxicology screen within normal limits -Chest x-ray unremarkable -Electrolytes unremarkable -Not in atrial fibrillation -Blood sugars elevated, A1c 9.7, moderate dose sliding scale needs optimal blood sugar management -Elevated triglycerides, elevated cholesterol, needs optimization -Neurochecks, aspiration precautions, NIH stroke scale -Telemetry monitoring -Aspirin, statin -Continue IV fluids -Allow for permissive hypertension, treat systolic of greater than 220, diastolic of greater than 120 -We will give a trial of Keppra to see if that improves his mentation, although I doubt his symptoms are related to seizures, EEG ordered -Will need to discuss with Dr. 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
[2022-04-24] MEDS: insulin glargine 100 units/1 mL 5 UNIT SUBCUT (15:02)
[2022-04-24 20:29] LABS: Glucose Point of Care 255 mg/dL (70-110)
[2022-04-24] MEDS: atorvastatin 40 mg Tablet PO (20:39)
--- NOTE | 2022-04-24 21:49 | USCV_ITS ---
Gm Jean Age: 72 Gender: M : 1950 Exam Date: 04/24/2022 06:47 Ordering Phys: Darnell Miranda MD Technologist: Charmaine Ayala [place] [facility] [place]: Encephalopathy BP: 146 / 71 HR: 56 Rhythm: Sinus Technical Quality: Suboptimal MEASUREMENTS (Male / Female) Normal Values 2D ECHO LV Diastolic Diameter PLAX 4.6 cm 4.2 - 5.9 / 3.9 - 5.3 cm LV Systolic Diameter PLAX 3.3 cm LV Chamber Size 4.3 cm IVS Diastolic Thickness 1.3 cm 0.6 - 1.0 / 0.6 - 0.9 cm IVS Systolic Thickness 1.7 cm LVPW Diastolic Thickness 1.8 cm 0.6 - 1.0 / 0.6 - 0.9 cm LVPW Systolic Thickness 1.6 cm RV Chamber Size 3.8 cm LVOT Diameter 2.1 cm LV Ejection Fraction 2D Teich 54.2 % LV Ejection Fraction MOD 2C 51.3 % LV Ejection Fraction 2C AL 50.8 % LA Diameter 3.3 cm LA Width 3.4 cm LA Height 5.1 cm RA Width 2.9 cm RA Height 3.3 cm Aorta at Sinotubular Diameter 3.8 cm M-MODE Aortic Annulus Diameter 4.3 cm LA Ao Ratio MM 1.0 MV E Point Septal Separation 0.4 cm DOPPLER AV Peak Velocity 120.0 cm/s LVOT Peak Velocity 111.0 cm/s AV Area Cont Eq vti 3.4 cm squared AV Area Cont Eq pk 3.1 cm squared MV Area PHT 3.1 cm squared Mitral E to A Ratio 0.8 MV E' Velocity 41.0 cm/s Mitral E to MV E' Ratio 11.0 Mitral E to LV E' Lateral Ratio 10.1 Mitral E to LV E' Septal Ratio 12.3 TR Peak Velocity 102.5 cm/s TR Peak Gradient 4.2 mmHg TR Mean Velocity 82.0 cm/s TR Mean Gradient 2.8 mmHg TR Velocity Time Integral 28.1 cm TV Peak E Velocity 62.0 cm/s Right Atrial Pressure 3.0 mmHg Pulmonary Artery Systolic Pressu 7.2 mmHg PV Peak Velocity 77.0 cm/s RV Acceleration Time 0.2 s RV Ejection Time 0.4 s RV AcT/ET 0.4 FINDINGS Left Ventricle The left ventricle is not well seen. The size and function are likely normal. No obvious wall motion disturbances. Ejection fraction is about 55%. Grade 1 diastolic dysfunction. Right Ventricle Normal right ventricular size and systolic function. Normal right ventricular systolic pressure. Right Atrium The right atrium is normal in size. Left Atrium The left atrium is normal in size. Mitral Valve Structurally normal mitral valve without significant stenosis or prolapse. There is no mitral regurgitation. Aortic Valve Structurally normal trileaflet aortic valve. Mild aortic valve regurgitation. Tricuspid Valve Structurally normal tricuspid valve without significant stenosis or regurgitation. Pulmonary artery systolic pressure is normal. Pulmonic Valve Pulmonic valve not well visualized. Pericardium Normal pericardium without effusion. Aorta The aortic root is mildly dilated. The average measurement is approximately 40 mm. IVC Inferior vena cava not visualized. CONCLUSIONS The left ventricle is not well seen. The size and function are likely normal. No obvious wall motion disturbances. Ejection fraction is about 55%. Grade 1 diastolic dysfunction. Structurally normal trileaflet aortic valve. Mild aortic valve regurgitation. The aortic root is mildly dilated. The average measurement is approximately [address] Margarito Spangler MD (Electronically Signed) Final Date: 24 April 2022 10:20 S
[2022-04-25] VITALS (8 sets, daily range): BP systolic 138–158; BP diastolic 71–86; PULSE 54–82; RESP 16–18; TEMP 36.1–36.8; O2SAT 97–99
[2022-04-25] MEDS: sodium chloride 0.9% 1,000 ML 75 ML IV ×2 (02:12→21:12)
[2022-04-25 04:16] LABS: Glucose Point of Care 275 mg/dL (70-110)
[2022-04-25 04:20] LABS: Basophils % 0.6 %; Eosinophils # 0.2 10^3/uL (0.0-0.8); Eosinophils % 3.1 %; Hematocrit 37.9 % (42.0-52.0); Lymphocytes # 2.6 10^3/uL (0.8-4.8); Lymphocytes % 49.8 %; Mean Corpuscular HGB Conc 34.3 g/dL (30.0-36.0); Mean Corpuscular Hemoglobin 31.3 pg (28.0-34.0); Mean Corpuscular Volume 91.1 fl (80-94); Mean Platelet Volume 10.9 fL (7.4-10.4); Monocytes # 0.4 10^3/uL (0.2-0.9); Monocytes % 7.1 %; Neutrophils # 2.04 10^3/uL (1.8-7.7); Neutrophils % 39.2 %; Nucleated Red Blood Cells % 0 %; Platelet Count 155 10^3/cmm (130-400); Red Blood Count 4.16 10^6/uL (4.1-5.3); Red Cell Distribution Width 12.5 % (12.1-15.1); White Blood Count 5.2 10^3/uL (4.0-10.0)
[2022-04-25 04:50] LABS: Alanine Aminotransferase 17 U/L (0-41); Albumin Level 3.6 g/dL (3.5-5.2); Alkaline Phosphatase 65 IU/L (40-130); Aspartate Amino Transferase 16 U/L (0-40); Blood Urea Nitrogen 21 mg/dL (8-23); Carbon Dioxide 21 mmol/L (22-29); Chloride 104 mmol/L (98-107); Globulin 2.3 g/dL (1.3-4.6); Glucose 202 mg/dL (65-115); Magnesium 1.6 mg/dL (1.7-2.3); Osmolality Calculated 291 mOsm/kg (285-295); Phosphorus 3.6 mg/dL (2.5-4.5); Sodium 136 mmol/L (136-145); Total Bilirubin 0.6 mg/dL (0.15-1.2); Total Protein 5.9 g/dL (6.6-8.7)
[2022-04-25 07:23] LABS: Glucose Point of Care 175 mg/dL (70-110)
[2022-04-25] MEDS: pantoprazole DR 40 mg Tablet PO (07:54)
[2022-04-25] MEDS: aspirin 81 mg EC Tablet PO (07:54)
[2022-04-25] MEDS: insulin lispro 100 unit/1 mL SUBCUT ×3 (07:54→17:43)
[2022-04-25] MEDS: heparin 5,000 unit/mL INJ 1 mL 5000 UNIT SUBCUT ×2 (10:56→21:13)
[2022-04-25 12:01] LABS: Glucose Point of Care 267 mg/dL (70-110)
[2022-04-25 17:40] LABS: Glucose Point of Care 172 mg/dL (70-110)
--- NOTE | 2022-04-25 17:48 | PM.ACPR ---
Procedure/Consent Procedure Narrative: ORDERING PHYSICIAN: Dr. Miranda. REASON FOR STUDY: Altered mental status. STUDY: This was a 21 channel digital electroencephalogram performed using the 10-20 international system of electrode placement. This study was performed at the bedside in 276 bed 1 with multiple electrical artifacts obscuring the record throughout. FINDINGS: The waking background was slow, in the range of 6 to 7 cps. The background was better seen on the right and nearly obscured by electrical artifact on the left. The patient was alert throughout. Photic stimulation produced high-voltage electrical artifact on the left more than the right. No other changes were seen. Hyperventilation for three minutes was performed well and had an alerting effect. IMPRESSION: Very poor quality EEG owing to multiple electrical artifacts as the study was performed in an shielded room on second floor. There was constant electrical artifact seen bilaterally, worse on the left. May be this record indicates mild diffuse slowing. This record could be consistent with mild diffuse brain dysfunction, nonspecific. There were no epileptiform changes that could be distinguished from artifact. Recommend EEG as an outpatient after discharge at [facility]. Duration of EE minutes
--- NOTE | 2022-04-25 18:19 | PM.PN ---
Subjective Subjective: Intermittent episodes noted of decreased responsiveness, confusion. Some question of possible gaze deviation. During my visit he is somewhat sluggish, but awake and alert, knows where he is and tells me the year. Does not seem to remember why he is here, supposes it is due to blood in stool. Son is at bedside. Son tells me patient does not have a known history of dementia. They do not live nearby, although on the last visit in January he seemed to be doing well. His son did notice that his father perhaps has been repeating things more recently. He tells me that when his stepmother was ill, there was quite a bit of expense for medical care, and he feels that may have contributed to his father discontinuing his own medications. Patient denies any headache, vision changes, no numbness. Denies any vertigo. Denies any complaints. Does take him a while to answer questions, sometimes questions or directions need to be repeated several times. Vitals/I&O/Wt Last Vital Signs Temp 97.8 F 04/25/22 12:00 Pulse 66 04/25/22 14:00 Resp 17 04/25/22 12:00 BP 138/75 04/25/22 12:00 Pulse Ox 99 04/25/22 12:00 O2 Del Method 04/25/22 12:00 O2 Flow Rate 95 04/24/22 19:43 04/25/22 04/25/22 04/25/22 06:59 14:59 22:59 Intake Total 999 / 2235 236 / 236 236 / 472 Balance 999 236 / 236 236 / 472 Physical Exam Narrative: Accompanied by his son at bedside. Const: COMMON NORMALS: patient oriented x3 and alert GENERAL APPEARANCE: cooperative ORIENTATION/CONSCIOUSNESS: Yes awake OTHER: Slowed mentation HENMT: COMMON NORMALS: oropharynx normal Neck/C-Spine: COMMON NORMALS: no JVD Resp: COMMON NORMALS: normal respiratory effort and clear to auscultation bilaterally AUSCULTATION: clear to auscultation bilaterally Cardio: COMMON NORMALS: no JVD, regular rhythm, S1 normal heart sound present, S2 normal heart sound present and No murmurs present (Cardio) RHYTHM: regular rhythm HEART SOUNDS: S1 normal heart sound present and S2 normal heart sound present GI: COMMON NORMALS: Normal to inspection, nondistended, normoactive bowel sounds present, Soft to palpation and non-tender PALPATION: Yes Soft to palpation Extremity: COMMON NORMALS: no joint enlargement and no pedal edema Neuro: COMMON NORMALS: patient oriented x3 and moves all extremities SENSORIUM/ORIENTATION: Yes alert COORDINATION/BALANCE: [id number] test normal and other (Zgcd-pf-saka minimally abnormal bilaterally.) SPEECH: Other neuro speech findings (Slow to respond and follow directions. Difficult to say if minimal aphasia) SENSORY EXAM: Yes extremities (Symmetrical) and Normal double simultaneous stimulation for sensation; No sensory level loss detected MOTOR EXAM: 5/5 motor strength present throughout and Other motor observations present (Minimal BL upper extremity pronator drift, R>L. No LE drift) COORDINATION: [id number] test normal and other (Wits-[id number]-hplk minimally abnormal bilaterally.) OTHER: Awake and alert, sluggish to follow directions. No trouble tracking. Some difficulties following directions for visual finch. Visual acuity appears worse in the right eye, but visual finch appear to be full to confrontation. Skin: COMMON NORMALS: no rashes or lesions noted GENERAL SKIN EXAM: no rashes or lesions noted Data : 04/25/22 04:05 04/25/22 04:05 Micro: Microbiology 04/23/22 19:44 Blood Culture - Preliminary Blood NEGATIVE TO DATE 04/23/22 19:40 Blood Culture - Preliminary Blood NEGATIVE TO DATE A&P Assessment and plan (1) Acute confusion: Acute encephalopathy, unclear cause. Possibly due to thalamic CVA, however, possibly other causes. Discussed also with his son. Appears to have somewhat episodic decreases in responsiveness. Overall sluggish in answering questions, following directions. Vital signs, as well as UA and chest x-ray not suggestive of acute infection. Question of possibility of mild cognitive decline preadmission. His son is not aware of any history of dementia. He does not entirely clear why he had not been taking care of himself including having untreated diabetes, cholesterol. He has some positives that his father neglected his health more when his stepmother was having her health issues. He seems to be doing well in January. His son has noticed that his father has been repeating things more. EEG obtained, not good quality. No obvious seizure. Possibly some mild generalized slowing. Will need better quality study after discharge. TSH was okay. Check B12, folic acid. Replace magnesium. Will reassess his condition. Disposition planning is in progress. He may benefit from skilled care. We will make sure speech therapy is seeing him as well. Status: Acute (2) Cerebrovascular accident (CVA) of left thalamus: Status: Acute (3) PRES (posterior reversible encephalopathy syndrome): Possible hypertensive encephalopathy on presentation. Status: Acute Plan DM2: -Blood sugars elevated, A1c 9.7, moderate dose sliding scale needs optimal blood sugar management HLD: -Elevated triglycerides, elevated cholesterol, needs optimization Attestations Medical Necessity Statement*: Continue admission for assessment management following CVA, acute encephalopathy. Coding Level of Care Code Acute [facility] Diagnoses Acute confusion R41.0 Cerebrovascular accident (CVA) of left thalamus I63.81 PRES (posterior reversible encephalopathy syndrome) I67.83
[2022-04-25] MEDS: magnesium sulfate premix 2 GM/50 ML PIGGYBACK IV (18:29)
[2022-04-25] MEDS: atorvastatin 40 mg Tablet PO (21:11)
[2022-04-25 21:27] LABS: Glucose Point of Care 246 mg/dL (70-110)
[2022-04-26] VITALS (8 sets, daily range): BP systolic 125–194; BP diastolic 71–90; PULSE 55–63; RESP 13–18; TEMP 36.1–37; O2SAT 93–99
[2022-04-26 05:07] LABS: Basophils % 0.4 %; Eosinophils # 0.1 10^3/uL (0.0-0.8); Eosinophils % 2.5 %; Hematocrit 37.6 % (42.0-52.0); Hemoglobin 12.7 g/dL (11.7-16.6); Lymphocytes # 2.4 10^3/uL (0.8-4.8); Lymphocytes % 42.3 %; Mean Corpuscular HGB Conc 33.8 g/dL (30.0-36.0); Mean Corpuscular Hemoglobin 30.5 pg (28.0-34.0); Mean Corpuscular Volume 90.2 fl (80-94); Mean Platelet Volume 10.8 fL (7.4-10.4); Monocytes # 0.4 10^3/uL (0.2-0.9); Monocytes % 6.8 %; Neutrophils # 2.66 10^3/uL (1.8-7.7); Neutrophils % 47.6 %; Nucleated Red Blood Cells % 0 %; Platelet Count 156 10^3/cmm (130-400); Red Blood Count 4.17 10^6/uL (4.1-5.3); Red Cell Distribution Width 12.3 % (12.1-15.1); White Blood Count 5.6 10^3/uL (4.0-10.0)
[2022-04-26 05:28] LABS: Alanine Aminotransferase 17 U/L (0-41); Albumin Level 3.4 g/dL (3.5-5.2); Alkaline Phosphatase 64 IU/L (40-130); Anion Gap 14.3 (5-19); Aspartate Amino Transferase 22 U/L (0-40); Blood Urea Nitrogen 16 mg/dL (8-23); Calcium 8.6 mg/dL (8.5-10.5); Carbon Dioxide 24 mmol/L (22-29); Chloride 105 mmol/L (98-107); Globulin 2.3 g/dL (1.3-4.6); Glucose 202 mg/dL (65-115); Magnesium 1.8 mg/dL (1.7-2.3); Osmolality Calculated 295 mOsm/kg (285-295); Phosphorus 2.9 mg/dL (2.5-4.5); Potassium 4.3 mmol/L (3.5-5.1); Sodium 139 mmol/L (136-145); Total Bilirubin 0.4 mg/dL (0.15-1.2); Total Protein 5.7 g/dL (6.6-8.7)
[2022-04-26 06:50] LABS: Vitamin B12 216 pg/mL (232-1245)
[2022-04-26 06:51] LABS: Glucose Point of Care 190 mg/dL (70-110)
[2022-04-26] MEDS: pantoprazole DR 40 mg Tablet PO (08:34)
[2022-04-26] MEDS: insulin lispro 100 unit/1 mL SUBCUT ×3 (08:34→17:18)
[2022-04-26] MEDS: aspirin 81 mg EC Tablet PO (08:34)
[2022-04-26 11:32] LABS: Glucose Point of Care 259 mg/dL (70-110)
[2022-04-26] MEDS: heparin 5,000 unit/mL INJ 1 mL 5000 UNIT SUBCUT ×2 (12:41→21:11)
[2022-04-26 16:48] LABS: Glucose Point of Care 295 mg/dL (70-110)
--- NOTE | 2022-04-26 21:02 | P.PN_ITS ---
Subjective Subjective: Today he is doing better. He is more awake and alert. He denies any complaints, although has been noticing diplopia when changing directions of gaze more today especially when he does not wear his glasses. Vitals/I&O/Wt Last Vital Signs Temp 98.6 F 04/26/22 15:25 Pulse 62 04/26/22 15:25 Resp 18 04/26/22 15:25 BP 125/71 04/26/22 15:25 Pulse Ox 98 04/26/22 15:25 O2 Del Method 04/26/22 15:25 O2 Flow Rate 95 04/24/22 19:43 04/26/22 04/26/22 04/26/22 06:59 14:59 22:59 Intake Total 360 / 2122 652 / 652 1240 / 1892 Output Total 350 / 350 Balance 1771 652 / 652 1240 / 1892 Physical Exam Const: COMMON NORMALS: patient oriented x3 and alert GENERAL APPEARANCE: cooperative ORIENTATION/CONSCIOUSNESS: Yes awake HENMT: COMMON NORMALS: oropharynx normal Neck/C-Spine: COMMON NORMALS: no JVD Resp: COMMON NORMALS: normal respiratory effort and clear to auscultation bilaterally AUSCULTATION: clear to auscultation bilaterally Cardio: COMMON NORMALS: no JVD, regular rhythm, S1 normal heart sound present, S2 normal heart sound present and No murmurs present (Cardio) RHYTHM: regular rhythm HEART SOUNDS: S1 normal heart sound present and S2 normal heart sound present GI: COMMON NORMALS: Normal to inspection, nondistended, normoactive bowel sounds present, Soft to palpation and non-tender PALPATION: Yes Soft to palpation Extremity: COMMON NORMALS: no joint enlargement and no pedal edema Neuro: COMMON NORMALS: patient oriented x3 and moves all extremities SENSORIUM/ORIENTATION: Yes alert COORDINATION/BALANCE: [id number] test no rmal and other (Nrjb-zj-xptr minimally abnormal bilaterally.) SPEECH: speech normal SENSORY EXAM: Yes extremities (Symmetrical) and Normal double simultaneous stimulation for sensation; No sensory level loss detected MOTOR EXAM: 5/5 motor strength present throughout and Pronator motor function not present COORDINATION: [id number]-nc-[id number] test normal and other (Ikfp-eq-lsud minimally abnormal bilaterally.) OTHER: Tracks resentfully, but diplopia triggered with tracking. FMF normal. Visual finch full to confrontation. Skin: COMMON NORMALS: no rashes or lesions noted GENERAL SKIN EXAM: no rashes or lesions noted Data : 04/26/22 04:50 04/26/22 04:50 A&P Assessment and plan (1) Acute confusion: Today diplopia is more apparent, especially that he is more alert and more readily following directions, diplopia triggered with horizontal tracking. FMF is normal. The no pronator drift. He overall is doing better today. Discussed with him results of EEG as well. Discussed with him risk of falling down, need for additional skilled care. He states he is being cautious, asking for assistance with mobility to avoid falls. [facility]. Will need optimization of risk factors of CVA, including HTN, DM2, HLD. EEG obtained, not good quality. No obvious seizure. Possibly some mild generalized slowing. Will need better quality study after discharge. TSH was okay. Minimally low B12, normal folic acid. Replace magnesium. Status: Acute (2) Cerebrovascular accident (CVA) of left thalamus: Status: Acute (3) PRES (posterior reversible encephalopathy syndrome): Possible hypertensive encephalopathy on presentation. Status: Acute Plan DM2: -Blood sugars elevated, A1c 9.7, moderate dose sliding scale needs optimal blood sugar management HLD: -Elevated triglycerides, elevated cholesterol, needs optimization Attestations Medical Necessity Statement*: Continue admission for reassessment following acute CVA, reassessment of mental status with some fluctuation, arrangements for rehabilitation and skilled care after discharge. Coding Level of Care Code Acute [facility] Diagnoses Acute confusion R41.0 Cerebrovascular accident (CVA) of left thalamus I63.81 PRES (posterior reversible encephalopathy syndrome) I67.83
[2022-04-26] MEDS: atorvastatin 40 mg Tablet PO (21:11)
[2022-04-26 22:17] LABS: Glucose Point of Care 194 mg/dL (70-110)
[2022-04-27] VITALS: BP 175/85; PULSE 59; RESP 14; TEMP 36.8; O2SAT 96
[2022-04-27 04:00] VITALS: BP 172/86; PULSE 58; RESP 12; TEMP 36.4; O2SAT 97
[2022-04-27 05:39] LABS: Basophils # 0.1 10^3/uL (0.0-0.1); Eosinophils # 0.1 10^3/uL (0.0-0.8); Eosinophils % 2.5 %; Hematocrit 36.6 % (42.0-52.0); Lymphocytes # 2.5 10^3/uL (0.8-4.8); Lymphocytes % 47.3 %; Mean Corpuscular HGB Conc 35.5 g/dL (30.0-36.0); Mean Corpuscular Hemoglobin 31.2 pg (28.0-34.0); Mean Corpuscular Volume 87.8 fl (80-94); Mean Platelet Volume 11.3 fL (7.4-10.4); Monocytes # 0.4 10^3/uL (0.2-0.9); Monocytes % 6.9 %; Neutrophils # 2.18 10^3/uL (1.8-7.7); Neutrophils % 42.1 %; Nucleated Red Blood Cells % 0 %; Platelet Count 160 10^3/cmm (130-400); Red Blood Count 4.17 10^6/uL (4.1-5.3); Red Cell Distribution Width 12.1 % (12.1-15.1); White Blood Count 5.2 10^3/uL (4.0-10.0)
[2022-04-27 06:05] LABS: Alanine Aminotransferase 27 U/L (0-41); Albumin Level 3.9 g/dL (3.5-5.2); Alkaline Phosphatase 70 IU/L (40-130); Anion Gap 13.2 (5-19); Aspartate Amino Transferase 30 U/L (0-40); Blood Urea Nitrogen 18 mg/dL (8-23); Calcium 8.8 mg/dL (8.5-10.5); Carbon Dioxide 24 mmol/L (22-29); Chloride 103 mmol/L (98-107); Globulin 2.2 g/dL (1.3-4.6); Glucose 208 mg/dL (65-115); Osmolality Calculated 290 mOsm/kg (285-295); Potassium 4.2 mmol/L (3.5-5.1); Sodium 136 mmol/L (136-145); Total Bilirubin 0.4 mg/dL (0.15-1.2); Total Protein 6.1 g/dL (6.6-8.7)
[2022-04-27 06:29] LABS: Glucose Point of Care 205 mg/dL (70-110)
[2022-04-27 08:00] VITALS: BP 172/81; PULSE 55; RESP 16; TEMP 36.5; O2SAT 96
[2022-04-27] MEDS: aspirin 81 mg EC Tablet PO (09:36)
[2022-04-27] MEDS: insulin lispro 100 unit/1 mL SUBCUT ×2 (09:36→12:00)
[2022-04-27] MEDS: heparin 5,000 unit/mL INJ 1 mL 5000 UNIT SUBCUT (09:36)
[2022-04-27] MEDS: pantoprazole DR 40 mg Tablet PO (09:36)
--- NOTE | 2022-04-27 11:27 | PC.PHAR ---
PT UNABLE TO VERIFY MEDICATIONS- PLEASE SEE PREVIOUS PHARMACY NOTE
[2022-04-27 11:52] LABS: Glucose Point of Care 368 mg/dL (70-110)
[2022-04-27 12:00] VITALS: BP 160/77; PULSE 64; RESP 16; TEMP 36.7; O2SAT 99
--- NOTE | 2022-04-27 12:07 | PC.SOCIAL ---
Pg 2 IMM Explained to pt & family Pg 2 IMM. No questions voiced. Provided pt a copy. Initialed, dated, & timed a copy & placed in chart.
--- NOTE | 2022-04-27 12:55 | P.DS_ITS ---
Discharge Providers Date of Admission: 04/24/22 15:02 Date of Discharge: April 27, 2022 Attending Provider at Admission: Darnell Miranda MD Attending Provider at Discharge: Magdiel Dodge Primary Care Provider: Иван Chamberlain DO Diagnoses at Discharge Discharge Diagnosis (1) Cerebrovascular accident (CVA) of left thalamus: Status: Acute (2) Acute confusion: Status: Acute (3) PRES (posterior reversible encephalopathy syndrome): Status: Acute Other Information Additional DC diagnoses/information: Untreated HTN, diabetes, HLD Reason for Visit Reason for Visit: Diabetic, not eating, or taking meds Hospital Course Hospital Course Pleasant 72-year-old gentleman with history of CAD, DM2, HTN, HLD, IBS, was admitted for assessment of management after presenting with confusion, on presentation also with very elevated blood pressures, as high as 226/95. He has been noted not taking care of himself well recently, not taking his medications for his medical conditions. On presentation he reported feeling foggy, with memory loss, at times having trouble following commands. Work-up was not re vealing for any acute infection. He has not had any history of drug use. No heavy alcohol consumption?may be drinks a glass of wine before bedtime. On discussion with his son later, his children who live in other [place]. It appears last time they had seen him around January he seemed to be doing well, although his son has noticed recently his father has been repeating things more often. He also reported that with his stepmother's health issues prior to her passing away in August, there were quite a bit of expenses and he feels his father may have stopped taking his medications around that time to cut down on the costs. On presentation with consideration of possible PRES or other causes of encephalopathy he was additionally assessed by MRI of the brain which showed lacunar infarction of left thalamus. On presentation and on hospitalization he was noted to have memory difficulties, at times also mild to moderate apraxia. At times becoming less responsive, nursing staff also once reported gaze abnormality looking downward. Due to this initially received 1 dose of Keppra. Due to episodic nature subsequent was also assessed by EEG while off Keppra. The study was of poor quality. Although no obvious seizure was noted, with quite a bit of background noise. Appearance also of possibly mild diffuse slowing. These episodes of so far resolved. He is having significantly less trouble following directions and participating with exam. He is noted to have intermittent diplopia with gaze shifts when tracking. He is well aware of it, and understands also the risk of falling down. He closes one of his eyes in case he needs to get up or perform a task. He is apraxic appears to have improved. He has less difficulty expressing himself and following commands otherwise. He is continued on aspirin and statin. His head and neck CTA did not show any large vessel disease. His microbiologic and metabolic studies remain normal as do his vitals apart from additional episodes of hypertension. Initially blood pressure was allowed to run on the high side, but he will need optimization of control of hypertension long-term. As he is also noted to have uncontrolled diabetes with A1c of 9.7. He is started on metformin. He lives alone at home and would benefit from further skilled care, including physical and occupational therapy due to risk of falling down, as well as speech therapy. He is asked to follow-up for additional assessment by neurology and for reassessment with his primary provider. Physical Exam Narrative: Accompanied by his son at bedside. Const: COMMON NORMALS: patient oriented x3 and alert GENERAL APPEARANCE: cooperative ORIENTATION/CONSCIOUSNESS: Yes awake OTHER: Slowed mentation HENMT: COMMON NORMALS: oropharynx normal Neck/C-Spine: COMMON NORMALS: no JVD Resp: COMMON NORMALS: normal respiratory effort and clear to auscultation bilaterally AUSCULTATION: clear to auscultation bilaterally Cardio: COMMON NORMALS: no JVD, regular rhythm, S1 normal heart sound present, S2 normal heart sound present and No murmurs present (Cardio) RHYTHM: regular rhythm HEART SOUNDS: S1 normal heart sound present and S2 normal heart sound present GI: COMMON NORMALS: Normal to inspection, nondistended, normoactive bowel sounds present, Soft to palpation and non-tender PALPATION: Yes Soft to palpation Extremity: COMMON NORMALS: no joint enlargement and no pedal edema Neuro: COMMON NORMALS: patient oriented x3 and moves all extremities SENSORIUM/ORIENTATION: Yes alert COORDINATION/BALANCE: [id number] test normal SPEECH: speech normal and Other neuro speech findings (Slow to respond and follow directions. Difficult to say if minimal aphasia) SENSORY EXAM: Yes extremities (Symmetrical) and Normal double simultaneous stimulation for sensation; No sensory level loss detected MOTOR EXAM: 5/5 motor strength present throughout, Pronator motor function not present and Other motor observations present (Minimal BL upper extremity pronator drift, R>L. No LE drift) COORDINATION: [id number] test normal OTHER: Tracks resentfully, but diplopia triggered with tracking. FNF normal. Visual finch full to confrontation. Skin: COMMON NORMALS: no rashes or lesions noted GENERAL SKIN EXAM: no rashes or lesions noted Discharge Data Studies Completed and Pending Completed Studies During Hospitalization Category Date Time Status CT head wo con* [id number] Stat Cat Scan 04/23/22 13:[address] head wo con* [id number] Stat Cat Scan 04/24/22 11:14 Completed CTA head neck [CT angio headneck* [id number]] Stat Cat Scan 04/23/22 14:00 Completed XR chest 1V portable [id number] Stat Exams 04/23/22 13:25 Completed MR head wo con* [id number] Stat MRI 04/23/22 16:39 Completed CV. echo complete* [id number] Routine Ultrasound 04/24/22 21:49 Completed Pending at discharge Category Date Time Status EEG electroencephalogram Routine Exams 04/24/22 11:33 Ordered Blood Culture Stat Lab 04/23/22 19:44 Results SARS Covid-2 Antigen Stat Lab 04/27/22 12:52 Uncollected Radiology Impressions Chest X-Ray 04/23/22 13:25 IMPRESSION: No acute findings. Head/Neck CTA 04/23/22 14:00 IMPRESSION: No large vessel stenosis or occlusion. IMPRESSION: No stenosis or occlusion. REFERENCES: NASCET CRITERIA. The degree of internal carotid artery stenosis is based on NASCET criteria. Normal is no stenosis. Mild is less than 50% stenosis. Moderate is 50-69% stenosis. Severe is 70% to 99% stenosis. Total occlusion is no detectable patent lumen. Head MRI 04/23/22 16:39 IMPRESSION: 1. There is a 2 mm acute lacunar infarct in the left thalamus. 2. Senescent changes are present the brain as described above. ADDENDUM: 04/23/221927 CRITICAL RESULT: The study was personally discussed on the telephone with Dr. Burgos on 04/23/2022 7:25 PM CDT. The results were understood and acknowledged. Head CT 04/24/22 11:14 IMPRESSION: Evolving tiny infarct in the left thalamus. No acute hemorrhage or other acute findings. Laboratory Results WBC 5.2 10^3/uL (4.0-10.0) 04/27/22 04:43 RBC 4.17 10^6/uL (4.1-5.3) 04/27/22 04:43 Hgb 13.0 g/dL (11.7-16.6) 04/27/22 04:43 Hct 36.6 % (42.0-52.0) L 04/27/22 04:43 MCV 87.8 fl (80-94) 04/27/22 04:43 MCH 31.2 pg (28.0-34.0) 04/27/22 04:43 MCHC 35.5 g/dL (30.0-36.0) D 04/27/22 04:43 RDW 12.1 % (12.1-15.1) 04/27/22 04:43 Plt Count 160 10^3/cmm (130-400) 04/27/22 04:43 MPV 11.3 fL (7.4-10.4) H 04/27/22 04:43 Neut % (Auto) 42.1 % 04/27/22 04:43 Lymph % (Auto) 47.3 % 04/27/22 04:43 Saline % (Auto) 6.9 % 04/27/22 04:43 Eos % (Auto) 2.5 % 04/27/22 04:43 Baso % (Auto) 1.0 % 04/27/22 04:43 Neut # (Auto) 2.18 10^3/uL (1.8-7.7) 04/27/22 04:43 Lymph # (Auto) 2.5 10^3/uL (0.8-4.8) 04/27/22 04:43 Saline # (Auto) 0.4 10^3/uL (0.2-0.9) 04/27/22 04:43 Eos # (Auto) 0.1 10^3/uL (0.0-0.8) 04/27/22 04:43 Baso # (Auto) 0.1 10^3/uL (0.0-0.1) 04/27/22 04:43 Nucleated RBC % (auto) 0 % 04/27/22 04:43 Nucleated RBCs # 0.0 /100WBC 04/27/22 04:43 ESR 5 mm/hr (0-10) 04/23/22 13:49 Specimen Type Arterial 04/23/22 14:30 Sample Site Brachial, right 04/23/22 14:30 ABG pH 7.43 (7.35-7.45) 04/23/22 14:30 ABG pCO2 36.5 mmHg (35-45) 04/23/22 14:30 ABG pO2 96.8 mmHg (80.0-100.0) 04/23/22 14:30 ABG HCO3 24.3 mmol/L (22-26) 04/23/22 14:30 ABG O2 Saturation 97.2 04/23/22 14:30 ABG Base Excess 0.3 mmol/L (-2.0-2.0) 04/23/22 14:30 Jagdish Test N/a 04/23/22 14:30 A-a O2 Gradient 1.0 mmHg (5-10) L 04/23/22 14:30 Hematocrit 43.4 % (42-52) 04/23/22 14:30 Hgb O2 Saturation 96.0 % (95-100) 04/23/22 14:30 Carboxyhemoglobin 0.2 %THgb (0.4-20.1) L 04/23/22 14:30 Methemoglobin 1.0 % (0.4-1.5) 04/23/22 14:30 Total Hemoglobin 14.2 g/dL (14-18) 04/23/22 14:30 Sodium 137.0 mmol/L (131-143) 04/23/22 14:30 Potassium 4.3 mmol/L (3.5-5.0) 04/23/22 14:30 Glucose 298.0 mg/dL (70-115) H 04/23/22 14:30 Ionized Calcium 1.2 mmol/L (1.1-1.4) 04/23/22 14:30 O2 Delivery Device Room air 04/23/22 14:30 Continuing Education Instructor ID Hinja 04/23/22 14:30 Sodium 136 mmol/L (136-145) 04/27/22 04:43 Potassium 4.2 mmol/L (3.5-5.1) 04/27/22 04:43 Chloride 103 mmol/L (98-107) 04/27/22 04:43 Carbon Dioxide 24 mmol/L (22-29) 04/27/22 04:43 Anion Gap 13.2 (5-19) 04/27/22 04:43 BUN 18 mg/dL (8-23) 04/27/22 04:43 Creatinine 1.0 mg/dL (0.7-1.2) 04/27/22 04:43 GFR Calculation Not Reportable 04/27/22 04:43 Glucose 208 mg/dL (65-115) H 04/27/22 04:43 POC Glucose 368 mg/dL (70-110) H 04/27/22 11:48 Estimat Average Glucose 232 04/23/22 13:49 Hemoglobin A1c 9.7 % (4.0-6.0) H 04/23/22 13:49 Calculated Osmolality 290 mOsm/kg (285-295) 04/27/22 04:43 Lactic Acid 2.6 mmol/L (0.5-2.2) H 04/23/22 14:35 Lactic Acid (Sepsis) 2.0 mmol/L (0.5-2.2) 04/23/22 19:40 Calcium 8.8 mg/dL (8.5-10.5) 04/27/22 04:43 Phosphorus 2.9 mg/dL (2.5-4.5) 04/26/22 04:50 Phosphorus Cancelled 04/26/22 04:50 Magnesium 1.8 mg/dL (1.7-2.3) 04/26/22 04:50 Magnesium Cancelled 04/26/22 04:50 Total Bilirubin 0.4 mg/dL (0.15-1.2) 04/27/22 04:43 AST 30 U/L (0-40) 04/27/22 04:43 ALT 27 U/L (0-41) 04/27/22 04:43 Alkaline Phosphatase 70 IU/L (40-130) 04/27/22 04:43 Ammonia 14 umol/L (16-60) L 04/23/22 22:01 Troponin T Baseline 21 ng/L (0-15) H 04/23/22 13:49 Troponin T 120 Minute Cancelled 04/23/22 19:40 Delta Troponin T Cancelled 04/23/22 19:40 Troponin T Hi Sens 6Hr 24.23 ng/L (0-15) H 04/23/22 19:40 Troponin T Hi Sens 6Hr Delta 3.23 ng/L (0-12) 04/23/22 19:40 C-Reactive Protein 3.0 mg/L (0.0-4.9) 04/23/22 13:49 NT-Pro-B Natriuret Pep Cancelled 04/24/22 04:33 Total Protein 6.1 g/dL (6.6-8.7) L 04/27/22 04:43 Albumin 3.9 g/dL (3.5-5.2) 04/27/22 04:43 Globulin 2.2 g/dL (1.3-4.6) 04/27/22 04:43 Triglycerides Cancelled 04/24/22 04:33 Cholesterol Cancelled 04/24/22 04:33 LDL Cholesterol, Calc Cancelled 04/24/22 04:33 HDL Cholesterol Cancelled 04/24/22 04:33 LDL/HDL Ratio Cancelled 04/24/22 04:33 Cholesterol/HDL Ratio Cancelled 04/24/22 04:33 Vitamin B12 216 pg/mL (232-1245) L 04/26/22 04:50 Vitamin B12 Cancelled 04/26/22 04:50 Folate 10.0 ng/mL (4.5-32.2) 04/26/22 04:50 Procalcitonin 0.04 ng/mL (0-0.5) 04/23/22 13:49 TSH 3.09 uIU/mL (0.27-4.20) 04/23/22 13:49 Urine Color Yellow (Yellow) 04/23/22 14:08 Urine Appearance Clear (CLEAR) 04/23/22 14:08 Urine pH 5 (5-7) 04/23/22 14:08 Ur Specific [place] 1.015 (1.005-1.030) 04/23/22 14:08 Urine Protein Neg (Negative) 04/23/22 14:08 Urine Glucose (UA) 4+ (Normal) H 04/23/22 14:08 Urine Ketones Negative (Negative) 04/23/22 14:08 Urine Blood Neg (Negative) 04/23/22 14:08 Urine Nitrate Negative (Negative) 04/23/22 14:08 Urine Bilirubin Neg (Negative) 04/23/22 14:08 Urine Urobilinogen Norm mg/dL (Negative) 04/23/22 14:08 Ur Leukocyte Esterase Negative (Negative) 04/23/22 14:08 Salicylates < 0.3 mg/dL (3-10) L 04/23/22 13:49 Urine Opiates Screen Negative ng/mL (Negative) 04/23/22 23:30 Acetaminophen < 5.0 ug/mL (10-30) L 04/23/22 13:49 Ur Barbiturates Screen Negative ng/mL (Negative) 04/23/22 23:30 Ur Phencyclidine Scrn Negative ng/mL (Negative) 04/23/22 23:30 Ur Amphetamines Screen Negative ng/mL (Negative) 04/23/22 23:30 U Benzodiazepines Scrn Negative ng/mL (Negative) 04/23/22 23:30 Urine Cocaine Screen Negative ng/mL (Negative) 04/23/22 23:30 U Marijuana (THC) Screen Negative ng/mL (Negative) 04/23/22 23:30 Ethyl Alcohol < 10 mg/dL (0-10) 04/23/22 13:49 Serum Ketones Negative (Negative) 04/23/22 13:49 Vitals Last Vital Signs Temp 98.1 F 04/27/22 12:00 Pulse 64 04/27/22 12:00 Resp 16 04/27/22 12:00 BP 160/77 04/27/22 12:00 Pulse Ox 99 04/27/22 12:00 O2 Del Method 04/27/22 12:00 O2 Flow Rate 95 04/24/22 19:43 Discharge Plan Discharge Patient Disposition: Xfer SNF Condition: Stable Prescriptions: New aspirin 81 mg Tablet,Delayed Release (Dr/Ec) 81 mg PO DAILY Qty: 90 0RF atorvastatin 40 mg Tablet 40 mg PO BEDTIME Qty: 90 0RF lisinopril 2.5 mg tablet 2.5 mg PO DAILY Qty: 90 0RF metformin 500 mg tablet 500 mg PO BID Qty: 180 0RF No Action Unable to Assess Discharge Orders: Discharge Order (Routine); Ordered 04/27/22 Ordered By: Magdiel Dodge Other Ambulatory Orders: EEG electroencephalogram (Routine) Timeframe: 4 Days Facility: [facility] - Location: Neurology Ordered By: Magdiel Dodge Referrals: [facility] [Outside] Adyee Subramanian MD [Physician] - 1 week Иван Chamberlain DO [Primary Care Provider] - 4-7 days Discharge Diet: Cardiac and Diabetic Discharge Activity: Increase activity as tolerated, Limit activity as instructed and As per PT/OT instructions Patient Instructions: Acetaminophen (By mouth), Metformin (By mouth), Atorvastatin (By mouth), Ischemic Stroke (GEN), Type 2 Diabetes in the Older Adult (GEN), Opioid Safety Activity Restrictions/Additional Instructions: Continue physical therapy, Occupational Therapy due to double vision, continue speech therapy. Due to double vision, maintain strict fall precautions. Discuss with occupational therapy if an eye patch may be helpful during the time of ambulation to reduce risk of fall. Please work with your primary doctor on optimizing risk factors of stroke. Continue aspirin, cholesterol medication. Continue to improve treatment of diabetes which is currently suboptimal. Monitor blood pressures twice daily. Long-term target goal blood pressure 120/80. You are started on lisinopril to help with management of blood pressures, as well as help reduce risk of diabetic nephropathy. Mild rise in creatinine may be anticipated with this medication, but please have your primary doctor follow- up your kidney function. You will need to also follow-up with neurology for additional assessment. Please also follow-up with repeat EEG for a better quality study. Discharge Attestations Time Spent in Discharge Care*: greater than 30 min Quality Metrics Clinical Quality Measures [ Cerebrovascular Accident { Contraindication to Antithrombotic: None; antithrombotic prescribed; Contraindication to Anticoagulation: Overlap treatment not indicated; Contraindication to Statin: None; Statin prescribed;}] Coding Level of Care Code Acute Chg FW DC note Diagnoses Cerebrovascular accident (CVA) of left thalamus I63.81 Acute confusion R41.0 PRES (posterior reversible encephalopathy syndrome) I67.83
[2022-04-27 14:51] LABS: SARS Covid-2 Antigen Negative (Negative)
--- NOTE | 2022-04-27 15:31 | PC.NURSE ---
Report called to Clarisse MATHEWS at [facility].
[2022-04-27 15:57] VITALS: BP 160/77; PULSE 64; RESP 16; TEMP 36.7; O2SAT 99
== END 2022-04-27 15:59 | disposition skilled nursing facility (03) | DRG 64 ==
LOC: ER 13:29 → MEDSURG 17:39
PROVIDERS: Admitting Provider Family Medicine; Emergency Provider Family Medicine; PCP Internal Medicine; Visit Provider Internal Medicine
DX: I63.81 Other cerebral infarction due to occlusion or stenosis of small artery (principal); I67.83 Posterior reversible encephalopathy syndrome; R48.2 Apraxia; R29.701 NIHSS score 1; I25.10 Atherosclerotic heart disease of native coronary artery without angina pectoris; I10 Essential (primary) hypertension; E11.65 Type 2 diabetes mellitus with hyperglycemia; Z91.120 Patient's intentional underdosing of medication regimen due to financial hardship; K21.9 Gastro-esophageal reflux disease without esophagitis; E78.5 Hyperlipidemia, unspecified; H53.2 Diplopia
CPT/HCPCS: 36415; 36416; 36600; 70450; 70496; 70498; 70551; 71045; 80051; 80053; 80061; 80306; 80307; 81003; 82009; 82140; 82330; 82607; 82746; 82805; 82962; 83036; 83605; 83735; 83880; 84100; 84145; 84443; 84484; 85025; 85651; 86140; 87040; 87426; 92523; 92610; 93005; 93306; 94664; 96365; 96372; 96375; 97110; 97116; 97161; 97165; 97530; 97535; 99285; G0378; J0360; J1644; J1815; J1953; J3475; J7030; Q9967

== ENCOUNTER → 2022-05-02 10:51 | Outpatient (BNVA) | payer MEDICARE, OTHER, SELFPAY | PROVIDERS: PCP Internal Medicine; Visit Provider Nurse Practitioner | DX: R42 Dizziness and giddiness (principal); I69.320 Aphasia following cerebral infarction; I69.398 Other sequelae of cerebral infarction | CPT/HCPCS: 99204 ==

== ENCOUNTER → 2022-05-10 12:52 | Outpatient (BNVA) | payer MEDICARE, OTHER, SELFPAY | PROVIDERS: PCP Internal Medicine; Referring Provider Specialist; Visit Provider Specialist | DX: F05 Delirium due to known physiological condition (principal); G93.40 Encephalopathy, unspecified | CPT/HCPCS: 95816 ==

== ENCOUNTER 2022-05-19 12:50 | Outpatient (CLI) | payer MEDICARE, OTHER, SELFPAY ==
--- NOTE | 2022-05-19 13:00 | MR_ITS ---
WS: [id number] MRI BRAIN WITH AND WITHOUT CONTRAST HISTORY: Cerebral infarct, confusion. COMPARISON: MRI brain 04/23/2022. TECHNIQUE: Multiplanar imaging performed through the brain with MultiHance 20 ml's IV. No acute infarct identified. Previously described infarct in the LEFT thalamus is returning to near n ormal diffusion-weighted signal intensity. No new diffusion-weighted abnormality. No hemorrhage is identified. Additional chronic small vessel ischemic disease in the subcortical and periventricular white matter. No large territory infarct. Ventricles and extra-axial spaces are normal. Clivus and pituitary gland are normal. Visualized posterior fossa and brainstem are also normal. Area of gyral enhancement in the LEFT thalamus is in the region of the recent acute infarct. This is a gyral enhancement related to the subacute infarct undergoing pseudonormalization. No additional are as of abnormal enhancement. Dural venous sinuses are normal. Paranasal sinuses: Well aerated with no significant disease. Mastoid air cells: Normal. Calvarium and scalp: Normal. MR/MR head wo/w con [id number] IMPRESSION: 1. Gyral enhancement in the LEFT thalamus associated with the subacute infarct . 2. No new infarct. 3. Mild atrophy and mild small vessel ischemic disease.
[2022-05-19] MEDS: gadobenate dimeglumine 20 mL vial IV (14:32)
== END 2022-05-19 12:51 | disposition home or self-care (01) ==
LOC: RAD 12:53
PROVIDERS: PCP Internal Medicine; Visit Provider Nurse Practitioner
DX: I63.81 Other cerebral infarction due to occlusion or stenosis of small artery (principal); I67.82 Cerebral ischemia; G31.9 Degenerative disease of nervous system, unspecified
CPT/HCPCS: 70553

== ENCOUNTER → 2022-05-20 14:18 | Outpatient (BNVA) | payer MEDICARE, OTHER, SELFPAY | PROVIDERS: PCP Internal Medicine; Visit Provider Nurse Practitioner | DX: E53.8 Deficiency of other specified B group vitamins (principal); Z86.73 Personal history of transient ischemic attack (TIA), and cerebral infarction without residual deficits | CPT/HCPCS: 99213 ==

== ENCOUNTER 2023-02-22 14:32 | Outpatient (RCR) | payer MEDICARE, OTHER, SELFPAY | END 2023-02-22 23:59 | disposition home or self-care (01) | LOC: SOT 14:32 | PROVIDERS: PCP Internal Medicine; Visit Provider Internal Medicine | DX: Z86.73 Personal history of transient ischemic attack (TIA), and cerebral infarction without residual deficits (principal) | CPT/HCPCS: 97165 ==

== ENCOUNTER → 2023-03-09 10:50 | Outpatient (BNVA) | payer MEDICARE, OTHER, SELFPAY | PROVIDERS: PCP Internal Medicine; Referring Provider Internal Medicine; Visit Provider Nurse Practitioner Family | DX: L57.0 Actinic keratosis (principal); L21.8 Other seborrheic dermatitis; Z80.8 Family history of malignant neoplasm of other organs or systems; L81.4 Other melanin hyperpigmentation; D22.5 Melanocytic nevi of trunk; Z71.89 Other specified counseling; L85.3 Xerosis cutis; L57.8 Other skin changes due to chronic exposure to nonionizing radiation; L91.8 Other hypertrophic disorders of the skin; L82.1 Other seborrheic keratosis | CPT/HCPCS: 11102; 17000; 17003; 99204 ==

== ENCOUNTER → 2023-04-26 13:20 | Outpatient (BNVA) | payer MEDICARE, OTHER, SELFPAY | PROVIDERS: PCP Internal Medicine; Referring Provider Internal Medicine; Visit Provider Specialist | DX: E11.42 Type 2 diabetes mellitus with diabetic polyneuropathy; Q82.8 Other specified congenital malformations of skin; M20.41 Other hammer toe(s) (acquired), right foot; M20.42 Other hammer toe(s) (acquired), left foot; M21.621 Bunionette of right foot; M21.622 Bunionette of left foot; S91.311A Laceration without foreign body, right foot, initial encounter; X58.XXXA Exposure to other specified factors, initial encounter; Z79.84 Long term (current) use of oral hypoglycemic drugs; R41.89 Other symptoms and signs involving cognitive functions and awareness; R26.89 Other abnormalities of gait and mobility; Z86.73 Personal history of transient ischemic attack (TIA), and cerebral infarction without residual deficits | CPT/HCPCS: 17110; 96116; 99213; 99215 ==

== ENCOUNTER → 2023-05-10 13:31 | Outpatient (BNVA) | payer MEDICARE, OTHER, SELFPAY | PROVIDERS: PCP Internal Medicine; Visit Provider Podiatrist Foot & Ankle Surgery | DX: E11.42 Type 2 diabetes mellitus with diabetic polyneuropathy (principal); M21.621 Bunionette of right foot; M21.622 Bunionette of left foot; S91.311A Laceration without foreign body, right foot, initial encounter; M20.41 Other hammer toe(s) (acquired), right foot; M20.42 Other hammer toe(s) (acquired), left foot; X58.XXXA Exposure to other specified factors, initial encounter; Z79.84 Long term (current) use of oral hypoglycemic drugs | CPT/HCPCS: 99214 ==

== ENCOUNTER → 2023-07-26 14:47 | Outpatient (BNVA) | payer MEDICARE, OTHER, SELFPAY | PROVIDERS: PCP Internal Medicine; Visit Provider Specialist | DX: G31.83 Neurocognitive disorder with Lewy bodies (principal); F02.80 Dementia in other diseases classified elsewhere, unspecified severity, without behavioral disturbance, psychotic disturbance, mood disturbance, and anxiety; F32.A Depression, unspecified; G20.C Parkinsonism, unspecified; R44.3 Hallucinations, unspecified | CPT/HCPCS: 99214 ==

== ENCOUNTER → 2023-08-08 13:33 | Outpatient (BNVA) | payer MEDICARE, OTHER, SELFPAY | PROVIDERS: PCP Internal Medicine; Visit Provider Podiatrist Foot & Ankle Surgery | DX: E11.42 Type 2 diabetes mellitus with diabetic polyneuropathy (principal); L60.3 Nail dystrophy; Z79.84 Long term (current) use of oral hypoglycemic drugs | CPT/HCPCS: 11721 ==

== ENCOUNTER → 2023-09-07 09:47 | Outpatient (BNVA) | payer MEDICARE, OTHER, SELFPAY | PROVIDERS: PCP Internal Medicine; Visit Provider Nurse Practitioner Family | DX: L57.0 Actinic keratosis (principal); L21.8 Other seborrheic dermatitis; Z80.8 Family history of malignant neoplasm of other organs or systems; L81.4 Other melanin hyperpigmentation; D22.5 Melanocytic nevi of trunk; L85.3 Xerosis cutis | CPT/HCPCS: 17000; 99213 ==

== ENCOUNTER → 2023-10-27 10:39 | Outpatient (BNVA) | payer MEDICARE, OTHER, SELFPAY | PROVIDERS: PCP Internal Medicine; Visit Provider Specialist | DX: G30.9 Alzheimer's disease, unspecified (principal); F02.80 Dementia in other diseases classified elsewhere, unspecified severity, without behavioral disturbance, psychotic disturbance, mood disturbance, and anxiety | CPT/HCPCS: 96116; 99214 ==

== ENCOUNTER → 2023-12-12 11:28 | Outpatient (BNVA) | payer MEDICARE, OTHER, SELFPAY | PROVIDERS: PCP Internal Medicine; Visit Provider Podiatrist Foot & Ankle Surgery | DX: E11.42 Type 2 diabetes mellitus with diabetic polyneuropathy (principal); L60.3 Nail dystrophy | CPT/HCPCS: 11721 ==

== ENCOUNTER 2024-04-11 15:39 | Emergency (ER) | payer MEDICARE, OTHER, SELFPAY ==
--- NOTE | 2024-04-11 15:47 | CTR_ITS ---
PROCEDURE INFORMATION: Exam: CT Head Without Contrast Exam date and time: 04/11/2024 4:07 PM Age: 74 years old Clinical indication: Altered mental status/memory loss; Additional info: Fall TECHNIQUE: Imaging protocol: Computed tomography of the head without contrast. Total images: 325 submitted. Radiation optimization: All CT scans at this facility use at least one of these dose optimization techniques: automated exposure control; mA and/or kV adjustment per patient size (includes targeted exams where dose is matched to clinical indication); or iterative reconstruction. COMPARISON: 1. MR head wo/w con [id number] 05/19/2022 1:[address] head wo con* [id number] 04/24/2022 11:25 AM 3. MR head wo con* [id number] 04/23/2022 6:25 PM RADIATION DOSE METRICS: Total DLP (mGy-cm): 1219 FINDINGS: Brain: No midline shift. Cisterns are noneffaced. No abnormal high attenuation lesions within brain parenchyma. No intracranial hemorrhage. A few, < 1.2 cm, oval, low attenuation lesions with similar density as CSF at left lentiform nucleus and left dorsal thalamus suggests chronic, lacunar infarcts. No definite evidence of acute infarcts. However, diffusion MRI is more sensitive. No extra-axial fluid collections. Cerebral ventricles: Ventricles along with cerebral sulci are moderately enlarged, reflecting cerebral volume loss. Paranasal sinuses: Mucosa of several, left > right ethmoid air cells is mildly thickened, suggesting chronic sinusitis. Mild air-fluid level within right sphenoid sinus suggests acute sinusitis. Bilateral sphenoid sinuses extend into anterior clinoid processes (variant). Bilateral middle conchae are incidentally aerated (variant). Mastoid air cells: Visualized mastoid air cells are well aerated. Orbital cavities: There are bilateral intraocular lens implants. Bones: Mild osteoarthritis of bilateral atlanto-occipital joints, as evidenced by small osteophytes, is present. There are mild degenerative changes at articulation of anterior arch of C1 and dens of C2. Soft tissues: There is a questionable, mild right supraorbital soft tissue hematoma. Vasculature: Right cavernous carotid and bilateral ophthalmic carotid arteries are mildly calcified. CT/CT head wo con* [id number] IMPRESSION: 1. Moderate cerebral volume loss. A few, < 1.2 cm, chronic, lacunar infarcts at left lentiform nucleus and left dorsal thalamus. 2. Mild, chronic, left > right ethmoid sinusitis. Mild, acute, right sphenoid sinusitis. 3. Atherosclerosis.
--- NOTE | 2024-04-11 15:47 | CTR_ITS ---
PROCEDURE INFORMATION: Exam: CT Lumbar Spine Without Contrast Exam date and time: 04/11/2024 4:14 PM Age: 74 years old Clinical indication: Injury or trauma; Fall TECHNIQUE: Imaging protocol: Computed tomography of the lumbar spine without contrast. Radiation optimization: All CT scans at this facility use at least one of these dose optimization techniques: automated exposure control; mA and/or kV adjustment per patient size (includes targeted exams where dose is matched to clinical indication); or iterative reconstruction. COMPARISON: CR XR lumbar spine f/e only [id number] 04/11/2017 11:13 AM RADIATION DOSE METRICS: Total DLP (mGy-cm): 927.7 FINDINGS: Bones/joints: The lumbar vertebral body heights are maintained. The lumbar vertebral bodies are normally aligned. Mild disc space narrowing at L3-L4 with vacuum disc phenomenon and adjacent endplate changes. L1-L2: No significant disc bulge or herniation. No severe spinal canal stenosis. No significant neural foraminal narrowing. L2-L3: Broad concentric disc bulge and bilateral facet arthropathy contributing to mild central canal stenosis. Mild left and moderate right neuroforaminal narrowing. L3-L4: Broad concentric disc bulge and bilateral facet arthropathy contributing to moderate to severe central canal stenosis. Moderate bilateral neuroforaminal narrowing. L4-L5: Broad concentric disc bulge and bilateral facet arthropathy contributing to moderate to severe central canal stenosis. [id number] bilateral neuroforaminal narrowing L5-S1: Broad concentric disc bulge and bilateral facet arthropathy contributing to [id number] central canal stenosis. Mild left and moderate right neuroforaminal narrowing Soft tissues: Calcified plaque is seen involving the abdominal aorta CT/CT lumbar spine wo con* [id number] IMPRESSION: Multilevel degenerative changes of the lumbar spine as outlined above. If symptoms persist, consider further evaluation with MRI, if MRI is clinically safe to obtain.
--- NOTE | 2024-04-11 15:47 | CTR_ITS ---
PROCEDURE INFORMATION: Exam: CT Cervical Spine Without Contrast Exam date and time: 04/11/2024 4:07 PM Age: 74 years old Clinical indication: Injury or trauma; Fall; Blunt trauma TECHNIQUE: Imaging protocol: Computed tomography of the cervical spine without contrast. Total images: 382 submitted. Radiation optimization: All CT scans at this facility use at least one of these dose optimization techniques: automated exposure control; mA and/or kV adjustment per patient size (includes targeted exams where dose is matched to clinical indication); or iterative reconstruction. COMPARISON: CT angio headneck* [id number] 04/23/2022 3:29 PM RADIATION DOSE METRICS: Total DLP (mGy-cm): 281.5 FINDINGS: Bones: Head is mildly tilted to right. There is mild left cervicothoracic curvature or scoliosis. Otherwise, alignment to top of T3 is normal. No acute fractures or subluxations. < 6 mm, oval, gas-containing lesions at left posterior aspect of superior endplate of C7 vertebra probably degenerative in nature. Mild osteoarthritis of bilateral atlanto-occipital joints, as evidenced by small osteophytes, is present. There are mild degenerative changes at articulation of anterior arch of C1 and dens of C2. At C2/3, there are mild vertebral osteophytes and mild-moderate bilateral facet hypertrophy, with mild canal and severe right and moderate-severe left neural foraminal narrowing. At C3/4, there is mild posterior disc protrusion/osteophyte complex and moderate right and mild left facet hypertrophy, with mild canal and moderate-severe right and severe left neural foraminal narrowing. At C4/5, there is mild posterior disc protrusion/osteophyte complex and moderate right and mild left facet hypertrophy, with mild canal and severe right and moderate left neural foraminal narrowing. At C5/6, there is mild posterior disc protrusion/osteophyte complex and mild-moderate right and mild left facet hypertrophy, with mild canal and moderate left > right neural foraminal narrowing. At C6/7, there is mild left paracentral disc protrusion/osteophyte complex and mild bilateral facet hypertrophy, with mild left lateral canal and moderate bilateral neural foraminal narrowing. At C7/T1, there are mild vertebral osteophytes and mild-moderate right facet hypertrophy, without significant canal or neural foraminal narrowing. Degenerative disc and facet disease of a few levels of upper thoracic spine is present, as evidenced by small vertebral osteophytes and mild facet hypertrophy, without significant canal or neural foraminal narrowing. Cerebral ventricles: Visualized cerebral ventricles along with cerebral sulci are moderately enlarged, reflecting volume loss. Paranasal sinuses: Mucosa of several, bilateral ethmoid air cells is mildly thickened, suggesting chronic sinusitis. Mild air-fluid within right sphenoid sinus suggests acute sinusitis. Bilateral sphenoid sinuses extend into anterior clinoid processes (variant). Bilateral middle conchae are incidentally aerated (variant). Nasal cavity and septum: Mucosa of left posterior nasal cavity is mildly asymmetrically thicker than right, possibly reflecting mild inflammation. Teeth: Left upper 2nd-3rd molars, right lower 2nd premolar and 2nd-3rd molars, and left lower 1st and 3rd molars are absent. Lungs: Mild, irregular reticular opacities at bilateral apices suggest scars. Soft tissues: Grossly unremarkable. CT/CT cervical spin wo con* [id number] IMPRESSION: 1. No acute fractures or subluxations to top of T3. Degenerative changes at several levels of cervical and upper thoracic spine as described above. 2. Mild, chronic, bilateral ethmoid sinusitis. Mild, acute, right sphenoid sinusitis. Mild asymmetric thickening of mucosal left posterior nasal cavity, possibly reflecting mild inflammation.
--- NOTE | 2024-04-11 15:52 | XRR_ITS ---
PROCEDURE INFORMATION: Exam: XR Pelvis Exam date and time: 04/11/2024 4:20 PM Age: 74 years old Clinical indication: Injury or trauma; Fall; Blunt trauma (contusions or hematomas); Bilateral; Pelvic region TECHNIQUE: Imaging protocol: Radiologic exam of the pelvis. Views: 1 or 2 view. COMPARISON: CT lumbar spine wo con* [id number] 04/11/2024 4:14 PM FINDINGS: Bones/joints: No acute fracture. Soft tissues: Unremarkable. XR/XR pelvis 1-2V* [id number] IMPRESSION: No acute bony abnormality. If symptoms persist, consider repeat plain films in 5-7 days.
--- NOTE | 2024-04-11 15:52 | XRR_ITS ---
PROCEDURE INFORMATION: Exam: XR Chest Exam date and time: 04/11/2024 4:20 PM Age: 74 years old Clinical indication: Injury or trauma; Fall; Blunt trauma (contusions or hematomas); Additional info: AMS TECHNIQUE: Imaging protocol: Radiologic exam of the chest. Views: 1 view. COMPARISON: CR XR chest 1V portable [id number] 04/23/2022 2:36 PM FINDINGS: Lungs: No focal lung consolidation. Pleural spaces: No pleural effusion. No pneumothorax. Heart/Mediastinum: Cardiac silhouette is borderline in size. Bones/joints: No acute bony abnormality. XR/XR chest 1V portable [id number] IMPRESSION: No focal lung consolidation.
--- NOTE | 2024-04-11 15:53 | ECG_ITS ---
[facility] Test Date: 2024-04-11 Pat Name: Gm Jean Department: Room: Gender: Male Head Of Music: : 1950 Requested By: Fernando Nieto Order Number: [id number] Jeremiah MD: Gerardo Worrell M.D. Measurements Intervals [place] Rate: 75 P: 39 IN: 247 QRS: -8 QRSD: 95 T: -4 QT: 374 QTc: 418 Interpretive Statements SINUS RHYTHM WITH FIRST DEGREE AV BLOCK MINIMAL VOLTAGE CRITERIA FOR LVH, CONSIDER NORMAL VARIANT [MEETS CRITERIA IN ONE OF: R(aVL), S(V1), R(V5), R(V5/V6)+S(V1)] Compared to ECG 04/23/2022 19:20:53 Myocardial infarct finding no longer present Electronically Signed On 04-11-2024 22:24:25 CDT by Gerardo Worrell M.D. [email or web address]
--- NOTE | 2024-04-11 15:54 | W.ED.FALL ---
HPI - Fall General: Chief Complaint: Altered Mental Status Stated Complaint: fall, ams Time Seen by Provider: 04/11/24 15:47 History of Present Illness: 74-year-old male patient was brought in for concerns of increased confusion, and fall. Patient has a history of CVAs, Alzheimer's, and diabetes mellitus. Patient is alert and responds to direct questions. Patient is a very poor historian. No family is at the bedside at this time. It was noted patient comes from a correction. Reviewed record from correction. Review of Systems General: Reports: 10 or more systems reviewed and unremarkable except in HPI and below PFSH ED PFSH: Medical History B12 deficiency Diabetes mellitus History of CT (myocardial infarction) IBS (irritable bowel syndrome) GERD (gastroesophageal reflux disease) Coronary artery disease HTN (hypertension) Surgical History S/P vasectomy S/P coronary angiogram Family History Mother Stroke Hypertension Father Hypertension Dementia Family/Other Cancer Social History Smoking and tobacco/nicotine status: never used tobacco/nicotine Alcohol intake: never Substance/Drug Use: never Physical Exam Const: COMMON NORMALS: alert HENMT: COMMON NORMALS: normocephalic, atraumatic and Normal external nose present HEAD & SCALP: normocephalic and atraumatic NOSE: Normal external nose present MOUTH: Normal oral and palatal mucosa present Neck/C-Spine: CERVICAL SPINE: No Cervical spine tenderness Chest: COMMONS NORMALS: normal palpation of entire chest wall Resp: COMMON NORMALS: normal respiratory effort and clear to auscultation bilaterally AUSCULTATION: clear to auscultation bilaterally Cardio: COMMON NORMALS: regular rate and regular rhythm RATE: regular rate RHYTHM: regular rhythm GI: COMMON NORMALS: Soft to palpation and non-tender PALPATION: Yes Soft to palpation Back/Pelvis: LUMBAR SPINE/LOWER BACK: Yes paraspinal muscle tenderness Extremity: NARRATIVE EXTREMITY EXAM: Patient is able to lift both legs off the bed. Patient has bilateral lower extremity edema. Patient moves upper extremities without difficulty. No obvious deformity or fractures are noted. No pain is elicited with palpation of the extremities. Passive range of motion is normal. Neuro: SENSORIUM/ORIENTATION: Yes alert Skin: COMMON NORMALS: turgor normal NARRATIVE SKIN EXAM: Senile purpura noted GENERAL SKIN EXAM: turgor normal Course Vital Signs: Vital signs: Vital Signs Temperature 99.2 F 04/11/24 15:55 Pulse Rate 73 04/11/24 16:29 Respiratory Rate 16 04/11/24 16:29 Blood Pressure 198/89 04/11/24 16:29 Pulse Oximetry 97 04/11/24 16:29 Oxygen Delivery Me thod Room Air 04/11/24 16:29 MDM - Fall Medical Decision Making Patient is here for concerns of a fall and AMS. Patient is a poor historian. Family is not available at the bedside. Review of record from correction. Differential diagnosis includes not limited to intracranial bleeding, fracture, ACS. CT of the head was normal. Laboratory values were unremarkable. Troponin was not significantly changed at [address] hours[address] Ur[address] was clean. [address] of the cervical spine and lumbar spine noted no acute injuries. Chest x-ray and pelvis x-ray were negative. Reviewed exam with patient and his daughter who states that he is acting normal for self and was reassured by imaging and labs. Patient was discharged back to home. Lab Data 04/11/24 15:59 04/11/24 15:59 Radiology Impressions Cervical Spine CT 04/11/24 15:47 IMPRESSION: 1. No acute fractures or subluxations to top of T3. Degenerative changes at several levels of cervical and upper thoracic spine as described above. 2. Mild, chronic, bilateral ethmoid sinusitis. Mild, acute, right sphenoid sinusitis. Mild asymmetric thickening of mucosal left posterior nasal cavity, possibly reflecting mild inflammation. ADDENDUM: 04/11/24 2011 ADDENDUM: Right petrous and cavernous carotid and bilateral clinoid or ophthalmic carotid arteries are mildly calcified. Right subclavian, right distal common carotid, and left proximal internal carotid arteries and origins of left internal and external carotid arteries are mildly calcified. Calcified, right upper paratracheal lymph nodes suggests remote granulomatous disease. Head CT 04/11/24 15:47 IMPRESSION: 1. Moderate cerebral volume loss. A few, < 1.2 cm, chronic, lacunar infarcts at left lentiform nucleus and left dorsal thalamus. 2. Mild, chronic, left > right ethmoid sinusitis. Mild, acute, right sphenoid sinusitis. 3. Atherosclerosis. Lumbar Spine CT 04/11/24 15:47 IMPRESSION: Multilevel degenerative changes of the lumbar spine as outlined above. If symptoms persist, consider further evaluation with MRI, if MRI is clinically safe to obtain. Chest X-Ray 04/11/24 15:52 IMPRESSION: No focal lung consolidation. Pelvis X-Ray 04/11/24 15:52 IMPRESSION: No acute bony abnormality. If symptoms persist, consider repeat plain films in 5-7 days. Laboratory Results WBC 5.67 10^3/uL (3.29-11.43) 04/11/24 15:59 RBC 4.03 10^6/uL (3.85-5.65) 04/11/24 15:59 Hgb 12.50 g/dL (11.27-16.99) 04/11/24 15:59 Hct 37.7 % (37-53) 04/11/24 15:59 MCV 93.5 fl (82-101) 04/11/24 15:59 MCH 31.0 pg (27-33) 04/11/24 15:59 MCHC 33.2 g/dL (30-55) 04/11/24 15:59 RDW 12.9 % (12.1-15.1) 04/11/24 15:59 Plt Count 153 10^3/cmm (157-399) L 04/11/24 15:59 MPV 11.1 fL (7.4-10.4) H 04/11/24 15:59 Neut % (Auto) 76.8 % 04/11/24 15:59 Lymph % (Auto) 11.5 % 04/11/24 15:59 [place] % (Auto) 10.6 % 04/11/24 15:59 Eos % (Auto) 0.5 % 04/11/24 15:59 Baso % (Auto) 0.4 % 04/11/24 15:59 Neut # (Auto) 4.36 10^3/uL (1.8-7.7) 04/11/24 15:59 Lymph # (Auto) 0.7 10^3/uL (0.8-4.8) L 04/11/24 15:59 [place] # (Auto) 0.6 10^3/uL (0.2-0.9) 04/11/24 15:59 Eos # (Auto) 0.0 10^3/uL (0.0-0.8) 04/11/24 15:59 Baso # (Auto) 0.0 10^3/uL (0.0-0.1) 04/11/24 15:59 Nucleated RBC % (auto) 0 % 04/11/24 15:59 Nucleated RBCs # 0.0 /100WBC 04/11/24 15:59 Sodium 140 mmol/L (136-145) 04/11/24 15:59 Potassium 4.4 mmol/L (3.5-5.1) 04/11/24 15:59 Chloride 104 mmol/L (98-107) 04/11/24 15:59 Carbon Dioxide 24 mmol/L (22-29) 04/11/24 15:59 Anion Gap 16.4 (5-19) 04/11/24 15:59 BUN 21 mg/dL (8-23) 04/11/24 15:59 Creatinine 1.0 mg/dL (0.7-1.2) 04/11/24 15:59 GFR Calculation Not Reportable 04/11/24 15:59 Glucose 239 mg/dL (65-115) H 04/11/24 15:59 Calculated Osmolality 301 mOsm/kg (285-295) H 04/11/24 15:59 Calcium 8.7 mg/dL (8.5-10.5) 04/11/24 15:59 Total Bilirubin 0.7 mg/dL (0.15-1.2) 04/11/24 15:59 AST 25 U/L (0-40) 04/11/24 15:59 ALT 20 U/L (0-41) 04/11/24 15:59 Alkaline Phosphatase 78 U/L (40-130) 04/11/24 15:59 Troponin T Baseline 37 ng/L (0-15) H 04/11/24 15:59 Troponin T 120 Minute 41.46 ng/L (0-15) H 04/11/24 18:11 Delta Troponin T 4.46 ABS# (0-10) 04/11/24 18:11 Total Protein 6.2 g/dL (6.6-8.7) L 04/11/24 15:59 Albumin 4.0 g/dL (3.5-5.2) 04/11/24 15:59 Globulin 2.2 g/dL (1.3-4.6) 04/11/24 15:59 Urine Color Yellow (Yellow) 04/11/24 17:08 Urine Appearance Clear (CLEAR) 04/11/24 17:08 Urine pH 5 (5-7) 04/11/24 17:08 Ur Specific [place] 1.025 (1.005-1.030) 04/11/24 17:08 Urine Protein 1+ (Negative) H 04/11/24 17:08 Urine Glucose (UA) 2+ (Normal) H 04/11/24 17:08 Urine Ketones Negative (Negative) 04/11/24 17:08 Urine Blood Neg (Negative) 04/11/24 17:08 Urine Nitrate Negative (Negative) 04/11/24 17:08 Urine Bilirubin Neg (Negative) 04/11/24 17:08 Urine Urobilinogen 1 mg/dL (Negative) H 04/11/24 17:08 Ur Leukocyte Esterase Negative (Negative) 04/11/24 17:08 Urine RBC 0-4 /hpf (0-2) H 04/11/24 17:08 Urine WBC None /hpf (0-5) 04/11/24 17:08 Ur Squamous Epith Cells 0-4 /hpf (0-5) H 04/11/24 17:08 Amorphous Sediment Not Reportable 04/11/24 17:08 Urine Bacteria None /hpf (NONE) 04/11/24 17:08 Hyaline Casts 5-10 /lpf H 04/11/24 17:08 Urine Mucus 4+ /hpf 04/11/24 17:08 All radiology interpretation(s) finalized by discharge EKG Data EKG 1: I personally reviewed and interpreted this EKG as follows: EKG interpretation date: 04/11/24 EKG interpretation time: 16:35 Prior EKG tracings: not available for review Interpretation: Sinus rhythm regular rate at [address] elevation or ectopy is noted. No prior exam was available for immediate comparison. First-degree AV block noted Computer generated interpretation: Sinus rhythm with first-degree AV block, minimal voltage criteria, abnormal EKG, unconfirmed report. EKG 2: I personally reviewed and interpreted this EKG as follows: EKG interpretation date: 04/11/24 EKG interpretation time: 18:00 Prior EKG tracings: available for review Interpretation: EKG shows a first-degree AV block with a regular rate at [address] elevation or ectopy is noted. No significant change was noted from prior exam done at 1631, April 11, 2024. Computer generated interpretation: Sinus rhythm with first-degree AV block, minimal voltage criteria for LVH consider normal variant, inferior myocardial infarction of indeterminate age, abnormal EKG, unconfirmed report. Discharge Plan Discharge Patient Disposition: Home Clinical Impression: Fall at correction Qualifiers: Encounter type: initial encounter Qualified Code(s): W19.XXXA - Unspecified fall, initial encounter Altered mental status Qualifiers: Altered mental status type: transient alteration of awareness Qualified Code(s): R40.4 - Transient alteration of awareness Condition: Stable Prescriptions: No Action (DME) Diabetic shoes See Rx Instructions .ROUTE .MEDSUPPLY Qty: 1 0RF Rx Instructions: With 3 pairs of inserts by the shoe guys clopidogrel 75 mg tablet PO Farxiga 10 mg tablet PO glipizide 10 mg tablet extended release 24hr PO cyanocobalamin (vitamin B-12) 5,000 mcg capsule 5,000 mcg PO DAILY Qty: 30 12RF galantamine 8 mg tablet 8 mg PO BID Qty: 180 3RF Rx Instructions: administer with AM and PM meals citalopram 20 mg tablet 20 mg PO DAILY Qty: 30 5RF aspirin 81 mg Tablet,Delayed Release (Dr/Ec) 81 mg PO DAILY Qty: 90 0RF atorvastatin 40 mg Tablet 40 mg PO BEDTIME Qty: 90 0RF lisinopril 2.5 mg tablet 2.5 mg PO DAILY Qty: 90 0RF metformin 500 mg tablet 500 mg PO BID Qty: 180 0RF Discharge Orders: Discharge ED (Routine); Ordered 04/11/24 Ordered By: Fernando Cobb Referrals: Иван Chamberlain DO [Primary Care Provider] - Discharge Diet: Usual diet Discharge Activity: Increase activity as tolerated Patient Instructions: Altered Mental Status (ED) Activity Restrictions/Additional Instructions: Continue routine care. Coding Level of Care Code ED Transplant Registered Nurse for Alyssa Ulloa
[2024-04-11 15:55] VITALS: BP 187/83; PULSE 88; TEMP 37.3; O2SAT 98
[2024-04-11 16:07] LABS: Basophils % 0.4 %; Eosinophils % 0.5 %; Hematocrit 37.7 % (37-53); Lymphocytes # 0.7 10^3/uL (0.8-4.8); Lymphocytes % 11.5 %; Mean Corpuscular HGB Conc 33.2 g/dL (30-55); Mean Corpuscular Volume 93.5 fl (82-101); Mean Platelet Volume 11.1 fL (7.4-10.4); Monocytes # 0.6 10^3/uL (0.2-0.9); Monocytes % 10.6 %; Neutrophils # 4.36 10^3/uL (1.8-7.7); Neutrophils % 76.8 %; Nucleated Red Blood Cells % 0 %; Platelet Count 153 10^3/cmm (157-399); Red Blood Count 4.03 10^6/uL (3.85-5.65); Red Cell Distribution Width 12.9 % (12.1-15.1); White Blood Count 5.67 10^3/uL (3.29-11.43)
[2024-04-11 16:27] LABS: Troponin(5th) Baseline 37 ng/L (0-15)
[2024-04-11 16:29] VITALS: BP 198/89; PULSE 73; RESP 16; O2SAT 97
[2024-04-11 16:29] LABS: Alanine Aminotransferase 20 U/L (0-41); Alkaline Phosphatase 78 U/L (40-130); Anion Gap 16.4 (5-19); Aspartate Amino Transferase 25 U/L (0-40); Blood Urea Nitrogen 21 mg/dL (8-23); Calcium 8.7 mg/dL (8.5-10.5); Carbon Dioxide 24 mmol/L (22-29); Chloride 104 mmol/L (98-107); Globulin 2.2 g/dL (1.3-4.6); Glucose 239 mg/dL (65-115); Osmolality Calculated 301 mOsm/kg (285-295); Potassium 4.4 mmol/L (3.5-5.1); Sodium 140 mmol/L (136-145); Total Bilirubin 0.7 mg/dL (0.15-1.2); Total Protein 6.2 g/dL (6.6-8.7)
[2024-04-11 17:30] LABS: Add Urine Microscopic? YES; Bilirubin Urine Neg (Negative); Blood Urine Neg (Negative); Glucose Urine UA 2+ (Normal); Ketones Urine Negative (Negative); Leukocyte Esterase Urine Negative (Negative); Nitrate Urine Negative (Negative); Protein Urine 1+ (Negative); Specific Gravity, Urine 1.025 (1.005-1.030); Urine Appearance Clear (CLEAR); Urine Color Yellow (Yellow); Urobilinogen Urine 1 mg/dL (Negative); pH Urine 5 (5-7)
[2024-04-11 17:47] LABS: Mucus Urine 4+ /hpf; RBC Urine 0-4 /hpf (0-2); Squamous Epithelial Cell Urine 0-4 /hpf (0-5)
[2024-04-11 17:48] LABS: Add Urine Culture? No
[2024-04-11 18:34] LABS: Troponin 5 2HR 41.46 ng/L (0-15); Troponin 5 2HR Delta 4.46 ABS# (0-10)
[2024-04-11 19:03] VITALS: BP 199/98; PULSE 76; RESP 16; O2SAT 98
[2024-04-11 19:52] VITALS: BP 174/99; PULSE 83; RESP 16; TEMP 37.3; O2SAT 100
== END 2024-04-11 20:32 | disposition home or self-care (01) ==
PROVIDERS: Emergency Provider Nurse Practitioner Family; PCP Internal Medicine
DX: R40.4 Transient alteration of awareness (principal); Z79.02 Long term (current) use of antithrombotics/antiplatelets; Z79.82 Long term (current) use of aspirin; Z79.84 Long term (current) use of oral hypoglycemic drugs; I44.0 Atrioventricular block, first degree; E11.9 Type 2 diabetes mellitus without complications; I25.2 Old myocardial infarction; I25.10 Atherosclerotic heart disease of native coronary artery without angina pectoris; I10 Essential (primary) hypertension
CPT/HCPCS: 36415; 51701; 70450; 71045; 72125; 72131; 72170; 80053; 81001; 84484; 85025; 93005; 99285

== ENCOUNTER → 2024-05-07 10:30 | Outpatient (BNVA) | payer MEDICARE, OTHER, SELFPAY | PROVIDERS: PCP Internal Medicine; Visit Provider Specialist | DX: G31.83 Neurocognitive disorder with Lewy bodies (principal); F02.B0 Dementia in other diseases classified elsewhere, moderate, without behavioral disturbance, psychotic disturbance, mood disturbance, and anxiety | CPT/HCPCS: 99214 ==

== ENCOUNTER 2024-05-14 08:07 | Emergency (ER) | payer MEDICARE, OTHER, SELFPAY ==
[2024-05-14 08:09] VITALS: BP 181/81; PULSE 56; RESP 18; TEMP 36.8; O2SAT 97; BMI 28.3
--- NOTE | 2024-05-14 08:22 | W.ED.AMS ---
HPI - Altered Mental Status General: Chief Complaint: Altered Mental Status Stated Complaint: AMS Time Seen by Provider: 05/14/24 08:20 History of Present Illness: 74-year-old male presents emergency room from assisted living with a complaint of altered mental status. Patient does have some dementia and is usually not very vocal. They reported that he walked to the dining room and then briefly seemed to have trouble moving his right side however on arrival here he is awake and alert at his baseline we did contact family and they confirmed his baseline with nursing staff. He denies any pain anywhere. He has no focal neurologic deficits. He is on dual antiplatelet therapy as well as high-dose statin. He has a history of diabetes mellitus and hypertension Related Data Home Medications Medication Instructions Recorded Confirmed clopidogrel 75 mg tablet 1 tab PO DAILY 07/26/23 05/14/24 acetaminophen 325 mg tablet 650 mg PO QID PRN PAIN OR FEVER 05/14/24 05/14/24 galantamine 12 mg tablet 12 mg PO BID 05/14/24 05/14/24 Previous Rx's Medication Instructions Recorded aspirin 81 mg tablet,delayed 81 mg PO DAILY #90 tabs 04/27/22 release atorvastatin 40 mg tablet 40 mg PO BEDTIME #90 tabs 04/27/22 metformin 500 mg tablet 500 mg PO BID #180 tabs 04/27/22 Diabetic shoes #1 ea 05/10/23 citalopram 20 mg tablet 20 mg PO DAILY #30 tabs 07/19/23 Allergies Allergy/AdvReac Type Severity Reaction Status Date / Time Penicillins Allergy Unknown Unknown Verified 05/07/24 10:44 Review of Systems General: Reports: ROS unobtainable due to mental status [facility] ED PFSH: Medical History B12 deficiency Diabetes mellitus History of [place] (myocardial infarction) IBS (irritable bowel syndrome) GERD (gastroesophageal reflux disease) Coronary artery disease HTN (hypertension) Surgical History S/P vasectomy S/P coronary angiogram Family History Mother Stroke Hypertension Father Hypertension Dementia Family/Other Cancer Social History (Reviewed 05/14/24 @ 08:28 by YESSICA Romero Smoking and tobacco/nicotine status: never used tobacco/nicotine Alcohol intake: never Substance/Drug Use: never Physical Exam Const: GENERAL APPEARANCE: cooperative ORIENTATION/CONSCIOUSNESS: Yes awake HENMT: COMMON NORMALS: normocephalic, atraumatic and hearing grossly normal bilaterally HEAD & SCALP: normocephalic and atraumatic Resp: COMMON NORMALS: normal respiratory effort, No retractions, No use of accessory muscles and clear to auscultation bilaterally AUSCULTATION: clear to auscultation bilaterally Cardio: COMMON NORMALS: regular rate, regular rhythm and No murmurs present (Cardio) RATE: regular rate RHYTHM: regular rhythm GI: COMMON NORMALS: Soft to palpation and No hepatosplenomegaly present AUSCULTATION: Yes normoactive bowel sounds PALPATION: Yes Soft to palpation, No Tenderness to palpation present (GI), No Guarding due to palpation present (GI) and Yes No hepatosplenomegaly present Extremity: COMMON NORMALS: normal to inspection, capillary refill normal, no clubbing, cyanosis or edema, no calf tenderness and no pedal edema OTHER: No pain with manipulation of any of the extremities. Neuro: OTHER: No focal neurologic deficits are noted Skin: COMMON NORMALS: no rashes or lesions noted GENERAL SKIN EXAM: no rashes or lesions noted Course Vital Signs: Vital signs: Vital Signs Temperature 98.3 F 05/14/24 08:09 Pulse Rate 53 L 05/14/24 10:48 Respiratory Rate 18 05/14/24 10:48 Blood Pressure 189/87 05/14/24 10:48 Pulse Oximetry 97 05/14/24 10:48 Oxygen Delivery Me thod Room Air 05/14/24 08:09 MDM - Altered Mental Status Medical Decision Making CT negative. Patient has no noticeable deficits is difficult time to evaluate him with a full [facility] however because of his dementia. He is currently on high-dose statin and dual antiplatelet therapy. No focal deficits at this point. He does have a history of previous CVA. His blood pressure was elevated because of his history of CVA we did not aggressively lower his blood pressure. This should be monitored at the [facility] and just by his primary care as needed continue his dual platelet therapy as well as the atorvastatin. No focal deficits at the time of discharge. Continue to monitor blood pressure at the [facility]. Medical Records I reviewed the patient's medical records. Lab Data I reviewed the patient's lab results. Radiology Impressions Head CT 05/14/24 08:27 IMPRESSION: 1. Moderate cerebral volume loss and stable lacunar infarcts in the LEFT basal ganglia and thalamus. 2. No acute blood. 3. No new infarct identified. All radiology interpretation(s) finalized by discharge Discharge Plan Discharge Patient Disposition: Home Clinical Impression: HTN (hypertension), Hx of completed stroke Condition: Stable Prescriptions: No Action (DME) Diabetic shoes See Rx Instructions .ROUTE .MEDSUPPLY Qty: 1 0RF Rx Instructions: With 3 pairs of inserts by the shoe cory clopidogrel 75 mg tablet 1 tab PO DAILY citalopram 20 mg tablet 20 mg PO DAILY Qty: 30 5RF aspirin 81 mg Tablet,Delayed Release (Dr/Ec) 81 mg PO DAILY Qty: 90 0RF atorvastatin 40 mg Tablet 40 mg PO BEDTIME Qty: 90 0RF metformin 500 mg tablet 500 mg PO BID Qty: 180 0RF acetaminophen 325 mg Tablet 650 mg PO QID PRN (Reason: PAIN OR FEVER) galantamine 12 mg Tablet 12 mg PO BID Rx Instructions: administer with AM and PM meals Discharge Orders: Discharge ED (Routine); Ordered 05/14/24 Ordered By: Jorge Morrow Referrals: Иван Chamberlain DO [Primary Care Provider] - Discharge Diet: Advance as tolerated Discharge Activity: Resume usual activity Patient Instructions: Altered Mental Status (ED), Opioid Safety, Pain Management Activity Restrictions/Additional Instructions: Thank you for choosing [facility] for your healthcare needs today. It is very important that you follow up as instructed or that you return to the Emergency Department should you have concerns or if your condition changes or worsens in any way. You were evaluated this morning for complaint of transient episode of unilateral weakness. Your symptoms had resolved by the time he arrived here CT of the head was negative. You are already on dual platelet therapy (aspirin and Plavix) as well as statin therapy (Lipitor). Continue same medications and follow-up with your primary care doctor regarding your blood pressure. It was elevated in the emergency room today but we do not recommend aggressive intervention at this time because of the symptoms you had this morning. Case management make arrangements for an outpatient MRI of the head. Coding Level of Care Code ED Director [facility] for Alyssa Ulloa
--- NOTE | 2024-05-14 08:27 | CT_ITS ---
WS: [id number] CT HEAD NONCONTRAST HISTORY: altered mental status TECHNIQUE: Contiguous axial imaging performed through the brain in 2.5 mm imaging. Bone and soft tiss ue windows. Sagittal and coronal reformats reviewed. All CT scans at [facility] use at least one of these dose optimization techniques: automated exposure control; mA and/or kV adjustment per pa tient size (includes targeted exams where dose is matched to clinical indication); or iterative recon struction. DLP: 1073.08 mGy.cm COMPARISON: 04/11/2024 No acute intracranial hemorrhage, midline shift or mass effect. Moderate atrophy with prior lacunar infarct in the LEFT basal ganglia. Additional infarct in the post erior LEFT thalamus. No new infarct or progression of small vessel disease since 04/11/2024. Mild cere bellar atrophy. Ventricles: Normal size with no hydrocephalus. No inferior displacement of the cerebellar tonsils. Paranasal sinuses: Mild mucoperiosteal thickening in the sphenoid sinuses. No air-fluid levels. Impro vement in aeration in the ethmoids air cells. Mastoid air cells: Well pneumatized. Calvarium and scalp: Skull is intact with no soft tissue edema or swelling. CT/CT head wo con* [id number] IMPRESSION: 1. Moderate cerebral volume loss and stable lacunar infarcts in the LEFT basal ganglia and thalamus. 2. No acute blood. 3. No new infarct identified.
--- NOTE | 2024-05-14 10:33 | PC.PHAR ---
PT IS FROM [facility].
[2024-05-14 10:48] VITALS: BP 189/87; PULSE 53; RESP 18; O2SAT 97
== END 2024-05-14 10:49 | disposition home or self-care (01) ==
PROVIDERS: Emergency Provider Family Medicine; PCP Internal Medicine
DX: I10 Essential (primary) hypertension (principal); Z86.73 Personal history of transient ischemic attack (TIA), and cerebral infarction without residual deficits; Z79.02 Long term (current) use of antithrombotics/antiplatelets; Z79.82 Long term (current) use of aspirin; Z79.84 Long term (current) use of oral hypoglycemic drugs; E11.9 Type 2 diabetes mellitus without complications; I25.2 Old myocardial infarction; I25.10 Atherosclerotic heart disease of native coronary artery without angina pectoris
CPT/HCPCS: 70450; 99284

== ENCOUNTER 2024-05-31 11:09 | Outpatient (CLI) | payer MEDICARE, OTHER, SELFPAY ==
--- NOTE | 2024-05-31 11:13 | MR_ITS ---
WS: [id number] MRI HEAD WITH CONTRAST TECHNIQUE: Sagittal T1, T2 axial, T2 axial FLAIR, axial susceptibility weighted imaging, axial diffus ion weighted images, and coronal T2 images were obtained. Pre and post-T1 axial and post T1 coronal i mages. ADC and FSPGR images. CLINICAL INFORMATION: HEMIPLEGIA COMPARISON: MRI 2021 FINDINGS: No evidence of restricted diffusion to suggest acute ischemia. Normal posterior fossa. Normal vascular flow voids at the skull base. No extra-axial fluid collections. No evidence of mass or mass effect. Paranasal sinuses are well aerated. Mucosal thickening in the mastoid air cells. Stable focus of hemosiderin in the LEFT temporal lobe appears new from previous. Mild small vessel changes. Moderate parenchymal volume loss. Small vessel changes in the [place]. Normal optic chiasm and pituitary infundibulum. Moderate symmetric atrophy temporal lobes and hippocampal formations. No abnormal gadolinium enhancement. Normal dural venous sinuses. MR/MR head wo/w con [id number] IMPRESSION: 1. No evidence of restricted diffusion to suggest acute ischemia. 2. Mild small vessel changes. Moderate parenchymal volume loss. Small vessel c hanges in the [place]. 3. Focus of hemosiderin in the LEFT temporal lobe is new from previous measuri ng 4 mm. 4. Moderate symmetric atrophy temporal lobes and hippocampal formations. 5. No other suspicious findings.
== END 2024-05-31 11:10 | disposition home or self-care (01) ==
LOC: RAD 11:10
PROVIDERS: PCP Internal Medicine; Visit Provider Family Medicine
DX: G81.90 Hemiplegia, unspecified affecting unspecified side (principal); R93.0 Abnormal findings on diagnostic imaging of skull and head, not elsewhere classified; G31.89 Other specified degenerative diseases of nervous system
CPT/HCPCS: 70553; A9577

== ENCOUNTER → 2024-12-03 14:15 | Outpatient (BNVA) | payer MEDICARE, OTHER, SELFPAY | PROVIDERS: PCP Internal Medicine; Visit Provider Specialist | DX: G31.83 Neurocognitive disorder with Lewy bodies (principal); F02.B0 Dementia in other diseases classified elsewhere, moderate, without behavioral disturbance, psychotic disturbance, mood disturbance, and anxiety | CPT/HCPCS: 99214 ==

== ENCOUNTER → 2025-06-03 13:21 | Outpatient (BNVA) | payer MEDICARE, OTHER, SELFPAY | PROVIDERS: PCP Internal Medicine; Visit Provider Specialist | DX: G30.9 Alzheimer's disease, unspecified (principal); F02.80 Dementia in other diseases classified elsewhere, unspecified severity, without behavioral disturbance, psychotic disturbance, mood disturbance, and anxiety; G31.83 Neurocognitive disorder with Lewy bodies; F02.B0 Dementia in other diseases classified elsewhere, moderate, without behavioral disturbance, psychotic disturbance, mood disturbance, and anxiety | CPT/HCPCS: 99214 ==

== ENCOUNTER 2025-06-17 11:24 | Emergency (ER) | payer MEDICARE, OTHER, SELFPAY ==
[2025-06-17 11:25] VITALS: BP 213/109; PULSE 53; RESP 20; TEMP 36.8; O2SAT 98; BMI 24.4
--- NOTE | 2025-06-17 11:29 | CT_ITS ---
WS: [id number] CT LUMBAR SPINE TECHNIQUE: Noncontrast CT of the lumbar spine with coronal and sagittal reformatted images. CLINICAL INFORMATION: low back pain COMPARISON: 2023 DLP: 875.[address] scans at [facility] use at least one of these dose optimization techniques: automated exposure control; mA and/or kV adjustment per patient size (includes targeted exams where dose is matched to clinical indication); or iterative reconstruction. FINDINGS: Mild lumbar curve. No acute compression. Degenerative disc disease worse at L3-4 with endplate degenerative changes eccentric to the RIGHT similar to previous. Moderate central canal stenosis L3-4 due to disc osteophyte complex and combination of facet arthropathy and ligamentum flavum hypertrophy similar to previous. Moderate central canal stenosis L4-5. 4 L3-L4: Moderate central canal stenosis due to central disc osteophyte protrusion in combination with facet arthropathy and ligamentum flavum hypertrophy. Moderate RIGHT and mild LEFT foraminal narrowing. L4-L5: Moderate central canal stenosis. Moderate facet arthropathy and ligamentum flavum hypertrophy. Mild bilateral foraminal narrowing RIGHT greater than LEFT. L5-S1: LEFT paracentral protrusion slightly impinges the LEFT S1 nerve root. Mild LEFT foraminal narrowing. Moderate to advanced facet arthropathy. Visualized pelvic bony structures: Normal. Paravertebral soft tissues: Normal. CT/CT lumbar spine wo con* [id number] IMPRESSION: No acute fractures
--- NOTE | 2025-06-17 11:29 | CT_ITS ---
WS: [id number] CT CERVICAL TRAUMA TECHNIQUE: Noncontrast CT of the cervical spine with coronal and sagittal reformatted images. CLINICAL INFORMATION: fall COMPARISON: 2023 DLP: 1389.[address] scans at [facility] use at least one of these dose optimization techniques: automated exposure control; mA and/or kV adjustment per patient size (includes targeted exams where dose is matched to clinical indication); or iterative reconstruction. FINDINGS: Straightening of the normal cervical lordosis. Moderate spondylitic changes. Disc space narrowing throughout the cervical spine. Slight anterolisthesis C2 on C3 and C7 on T1 Normal craniocervical junction. Normal C1-C2 articulation. Dens is normal in appearance. Normal occipital condyles. No high-grade spinal canal narrowing. Normal C1 ring. No evidence of acute fracture or dislocation. Normal prevertebral soft tissues. CT/CT cervical spin wo con* [id number] IMPRESSION: No evidence of acute fracture or dislocation.
--- NOTE | 2025-06-17 11:29 | CT_ITS ---
WS: [id number] CT HEAD TECHNIQUE: Noncontrast CT of the head obtained from the skullbase to the vertex. CLINICAL INFORMATION: fall, head injury COMPARISON: 2023 DLP: 1389.[address] scans at [facility] use at least one of these dose optimization techniques: automated exposure control; mA and/or kV adjustment per patient size (includes targeted exams where dose is matched to clinical indication); or iterative reconstruction. FINDINGS: No evidence of intracranial hemorrhage or mass effect. Ventricular system and basal cisterns are patent. Mild small vessel changes with moderate parenchymal volume loss. Chronic lacunar infarct in the LEFT basal ganglia. No extra-axial fluid collections. Vascular calcification Paranasal sinuses and mastoid air cells are well aerated. .Normal visualized soft tissues. CT/CT head wo con* [id number] IMPRESSION: 1. No evidence of intracranial hemorrhage or mass effect. 2. Mild small vessel changes with moderate parenchymal volume loss. 3. Vascular calcification. 4. Chronic lacunar infarct in the LEFT basal ganglia. 5. No acute intracranial findings.
--- NOTE | 2025-06-17 11:29 | W.ED.FALL ---
HPI - Fall General: Chief Complaint: Fall Stated Complaint: fall History of Present Illness: 75-year-old male with a history of dementia, hyperlipidemia, diabetes who presents emergency room from assisted living by ambulance After having had a couple of falls. These were unwitnessed. He says he was looking up at a helicopter and fell over backwards. He is complaining of some low back pain and head pain. He has a bruise on his left elbow but has full range of motion and no pain there. EMS reports that he was ambulatory when they got there. Related Data Home Medications ?Medication ?Instructions ?Recorded ?Confirmed clopidogrel 75 mg tablet 1 tab PO DAILY 07/26/23 06/03/25 acetaminophen 325 mg tablet 650 mg PO QID PRN PAIN OR FEVER 05/14/24 06/03/25 Previous Rx's ?Medication ?Instructions ?Recorded aspirin 81 mg tablet,delayed 81 mg PO DAILY #90 tabs 04/27/22 release atorvastatin 40 mg tablet 40 mg PO BEDTIME #90 tabs 04/27/22 metformin 500 mg tablet 500 mg PO BID #180 tabs 04/27/22 Diabetic shoes #1 ea 05/10/23 citalopram 20 mg tablet 20 mg PO DAILY #30 tabs 07/19/23 galantamine 12 mg tablet 12 mg PO BID #180 tabs 12/03/24 Allergies Allergy/AdvReac Type Severity Reaction Status Date / Time Penicillins Allergy Unknown Unknown Verified 06/03/25 14:08 Review of Systems Narrative: Constitutional symptoms: Negative except as documented in HPI. Skin symptoms: Negative except as documented in HPI. Eye symptoms: Negative except as documented in HPI. ENMT symptoms: Negative except as documented in HPI. Respiratory symptoms: Negative except as documented in HPI. Cardiovascular symptoms: Negative except as documented in HPI. Gastrointestinal symptoms: Negative except as documented in HPI. Genitourinary symptoms: Negative except as documented in HPI. Musculoskeletal symptoms: Negative except as documented in HPI. Neurologic symptoms: Negative except as documented in HPI. Psychiatric symptoms: Negative except as documented in HPI. Endocrine symptoms: Negative except as documented in HPI. [facility] PFSH: Medical History (Updated 06/17/25 @ 12:15 by Eileen Johnson MD) B12 deficiency Diabetes mellitus History of TN (myocardial infarction) IBS (irritable bowel syndrome) GERD (gastroesophageal reflux disease) Coronary artery disease HTN (hypertension) Surgical History S/P vasectomy S/P coronary angiogram Family History Mother Stroke Hypertension Father Hypertension Dementia Family/Other Cancer Social History Smoking and tobacco/nicotine status: never used tobacco/nicotine Alcohol intake: never Substance/Drug Use: never Physical Exam Narrative: EXAM NARRATIVE: General: Alert, no acute distress. Skin: Warm, dry. Head: Normocephalic, atraumatic. Neck: Supple, trachea midline. Eye: Extraocular movements are intact. Ears, nose, mouth and throat: mucosa moist. Cardiovascular: Regular, Normal peripheral perfusion. Respiratory: Lungs are clear to auscultation, respirations are non-labored, breath sounds are equal, Symmetrical chest wall expansion. Gastrointestinal: Soft, Nontender, Non distended Musculoskeletal: Normal ROM, no deformity. Cystic feeling area on his left elbow. No redness or bruising to this area. However EMS reports that assisted living says this is new and may be a bruise. It is nonpainful. Neurological: Alert and oriented, No focal neurological deficit observed. Psychiatric: Cooperative, appropriate mood & affect. Course Vital Signs: Vital signs: Vital Signs Temperature 98.2 F 06/17/25 11:25 Pulse Rate 54 L 06/17/25 12:03 Respiratory Rate 16 06/17/25 12:03 Blood Pressure 191/89 06/17/25 12:03 Pulse Oximetry 98 06/17/25 12:03 Oxygen Delivery Me thod Room Air 06/17/25 11:25 MDM - Fall Medical Decision Making Medical decision making: Differential diagnosis including but not limited to and based on the above HPI, review of systems and physical exam: patient with fall and head injury. Subdural hematoma, subarachnoid hemorrhage, concussion, skull fracture. Orders placed to evaluate differential diagnosis based on the above differential, HPI and physical exam CT scan of the head was ordered. We will also evaluate the patient's low back as he is complaining of low back pain. I reviewed the patient's medical record. CT head: Senescent changes. No acute intracranial process. no intracranial hemorrhage, no evidence of infarct. no evidence of acute fracture.This was reviewed and interpreted by myself the ER physician. CT of the cervical spine: No fracture. Good alignment. No step-offs. This was reviewed and interpreted by myself the emergency room physician. I also reviewed the radiologist report. CT of the lumbar spine: No fracture. Good alignment. No step-offs. This was reviewed and interpreted by myself the emergency room physician. Assessment and plan: Fall Head injury Low back pain next - Discharged home - Discussed plan with patient. Answered any questions. - Evaluation and treatment of this problem were appropriate in the emergency setting. Lab Data Radiology Impressions Cervical Spine CT 06/17/25 11:29 IMPRESSION: No evidence of acute fracture or dislocation. Head CT 06/17/25 11:29 IMPRESSION: 1. No evidence of intracranial hemorrhage or mass effect. 2. Mild small vessel changes with moderate parenchymal volume loss. 3. Vascular calcification. 4. Chronic lacunar infarct in the LEFT basal ganglia. 5. No acute intracranial findings. Lumbar Spine CT 06/17/25 11:29 IMPRESSION: No acute fractures All radiology interpretation(s) finalized by discharge Discharge Plan Discharge Patient Disposition: Home Clinical Impression: Fall, Head injury, Low back strain Condition: Stable Prescriptions: No Action (DME) Diabetic shoes See Rx Instructions .ROUTE .MEDSUPPLY Qty: 1 0RF Rx Instructions: With 3 pairs of inserts by the shoe guvicente clopidogrel 75 mg tablet 1 tab PO DAILY galantamine 12 mg tablet 12 mg PO BID Qty: 180 3RF Rx Instructions: administer with AM and PM meals citalopram 20 mg tablet 20 mg PO DAILY Qty: 30 5RF aspirin 81 mg Tablet,Delayed Release (Dr/Ec) 81 mg PO DAILY Qty: 90 0RF atorvastatin 40 mg Tablet 40 mg PO BEDTIME Qty: 90 0RF metformin 500 mg tablet 500 mg PO BID Qty: 180 0RF acetaminophen 325 mg Tablet 650 mg PO QID PRN (Reason: PAIN OR FEVER) Discharge Orders: Discharge ED (Routine); Ordered 06/17/25 Ordered By: Eileen Johnson Referrals: Иван Chamberlain DO [Primary Care Provider, Internal Medicine] Discharge Diet: Usual diet Discharge Activity: Increase activity as tolerated Patient Instructions: Fall Prevention (ED), Opioid Safety, Pain Management, Patient Portal & Terrie Instructions Activity Restrictions/Additional Instructions: Thank you for choosing [facility] for your healthcare needs today. You have been screened and evaluated and felt safe for discharge. Health conditions do change or evolve sometimes and as such it is important that you follow up with your Primary Doctor to be re checked, 3-5 days is a general good time frame for follow up. You are always welcome to return to the ED for re assessment if your symptoms are worsening or you have new concerns Print Language: Albanian Coding Level of Care Code ED Leather Stripping Machine Operator for Alyssa Ulloa
--- OUTSIDE RECORDS SUMMARY | 2025-06-17 11:31 | XMS_ITS | Encounter Summary ---
Author Organization [facility] Address [address] [place] [address] Care Team Providers Care Supervisor Electron Tube Processing Name Role Phone Jerry Garcia MD, Frank Ruiz Primary Care Provider Encounter Details Date Type Department Care Team (Latest Contact Info) Description 11/07/2000 Outpatient Historical [facility] Dermatology- [facility] [place] [address] [place] [id number] Donny Hernandez MD NO ADDRESS ON FILE Other specified disease of hair and hair follicles (Primary Dx); Actinic keratosis Social History Tobacco Use Types Packs/Day Years Used Date Smoking Tobacco: Never Assessed Sex and Gender Information Value Date Recorded Sex Assigned at Not on file 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
--- OUTSIDE RECORDS SUMMARY | 2025-06-17 11:31 | XMS_ITS | Patient Health Record ---
Author Organization [facility] Address [address] [place] [address] Support Name Relationship Address Phone Gm Jean Guarantor Unknown [phone] Allergies Allergen (clinical drug ingredient) Drug/Non Drug Allergy documented on EMR Reaction Allergy Type Onset Date Status Penicillin Unknown Drug Allergy Active Reason For Referral No Information Medications Medication SIG (Take, Route, Frequency, Duration) Notes Start Date End Date Status Clopidogrel Bisulfate 75 MG 1 tablet Ora lly Once a day for 90 days Active Jardiance 25 MG 1 tablet Orally Once a day for 30 day(s) Active Atorvastatin Calcium 40 MG 1 tablet Oral ly Once a day for 30 day(s) Active Aspirin 81 MG 1 tablet Orally Once a day for 30 day(s) Active Problems Problem Type SNOMED Code ICD Code Onset Dates Problem Status W/U Status Risk Notes Problem 1254823 Hallucinations (R44.3) Active confirmed Problem 636804645 Cerebrovascular accident (CVA), unspecified mechanism (I63.9) Active confirmed Plan Of Treatment No Information Insurance Providers Payer Name Payer Address Payer Phone Subscriber Number Group Number Insured Name Patient Relationship to Insured Coverage Start Date Coverage End Date MEDICARE [address] [place] [id number] Gm Jean Self - patient is the insured [employer] [place] [facility] [id number] [employer] [place] [id number] [phone] [id number] Gm Jean Self - patient is the insured Medical (General) History Surgical History Surgery Date(Month/Year) heart Hospitalization History Reason Date(Month/Year) stroke ( 2nd Possible stroke)
--- OUTSIDE RECORDS SUMMARY | 2025-06-17 11:31 | XMS_ITS | Clinical Summary ---
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 Gender Identity Not on file Sexual Orientation Not on file Plan of Treatment Health Maintenance Due Date Last Done Comments DTAP/TDAP/TD VACCINES (1 - Tdap) 01/22/1967 PNEUMOCOCCAL VACCINE 50+ YEA RS (1 of 1 - PCV) 01/22/1998 ZOSTER VACCINE (1 of 2) 01/22/1998 RSV VACCINE (60+ or ) (1 - 1-dose 75+ series) 01/22/2023 INFLUENZA VACCINE (#1) 2025 07/29/2008 COLORECTAL SCREENING Discontinued 05/21/2010, 05/21/20 10 Colorectal Cancer Screening Discontinued FIT-DNA Q 3 years Discontinued FIT/FOBT Q 1 year Discontinued Flex Sig/CT Colonography Q 5 years Discontinued Insurance [facility] Care Teams Safe Deposit Clerk Relationship Specialty Start Date End Date Frank Edwards Jr., MD [address] [address] PCP - General Family Practice 05/28/10
--- OUTSIDE RECORDS SUMMARY | 2025-06-17 11:31 | XMS_ITS | Encounter Summary ---
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 us Mathew Grubbs MD CHEMISTRY ORDERABLES Final Res ult INTERFACE SYSTEM Refer to clinic/hospital department [facility] CLIA# [id number] [address] [place] [address] * RUBELLA IGG (07/24/2008 12:34 PM CDT) RUBELLA IGG Reactive Reactive [facility] Blood specimen (specimen) 07/24/2008 12:34 PM CDT 07/24/2008 12:45 PM CDT Narrative INTERFACE SYSTEM - 07/24/2008 1:53 PM CDT post offer. us Mathew Grubbs MD CHEMISTRY ORDERABLES Final Res ult INTERFACE SYSTEM Refer to clinic/hospital department [facility] CLIA# [id number] [address] [place] [address] documented in this encounter Visit Diagnoses Not on filedocumented in this encounter Care Teams Waterside Worker Relationship Specialty Start Date End Date Frank Edwards Jr., MD [address] [address] PCP - General Family Practice 05/28/10 documented as of this encounter
--- OUTSIDE RECORDS SUMMARY | 2025-06-17 11:31 | XMS_ITS | Clinical Summary ---
Author Organization [facility] Address [address] [place] [address] Care Team Providers Care Marble Setter Name Role Phone Sergei Alves PA-C Primary Care Provider [phone] Allergies No known active allergies Medications aspirin (ASPIR-LOW) 81 mg enteric coated tablet 06/27/2022 Activ e metFORMIN HCl 1000 mg tablet Take 1,000 mg by mouth. 06/23/2022 Active clopidogrel (PLAVIX) 75 mg tablet 10/28/2022 Active lisinopril (PRINIVIL) 10 mg tablet 06/16/2022 Active omeprazole (PRILOSEC) 20 mg delayed release capsule 11/14/2022 Active Active Problems No known active problems Social History Tobacco Use Types Packs/Day Years Used Date Smoking Tobacco: Every Day Cigarettes Smokeless Tobacco: Never Tobacco Cessation:Ready to Q uit: Not Asked; Counseling Given: Not Answered Sex and Gender Information Value Date Recorded Sex Assigned at Not on file Legal Sex Male 1:32 PM MDT Gender Identity Not on file Sexual Orientation Not on file Plan of Treatment Health Maintenance Due Date Last Done Comments Hep C Screening-All Pts 18-79 Regardless of Risk 01/22 Depression Screening/Monitoring 1960 DTaP/Tdap/TD Vaccine (1 - Tdap) 01/22/1967 Pneumococcal Vaccine: 50+ Years (1 of 2 - PCV) 967 Shingrix Vaccine (1 of 2) 01/22/1998 Medicare Annual Wellness Visit 01/22/2013 RSV Vaccine Age 75+ or At [facility] (1 - 1-dose 75+ series) 01/22/2023 Influenza Vaccine (#1) 2025 06/23/2022 COVID-19 Vaccine Discontinued 06/23/2022 Insurance MEDICARE [facility] MEDICARE [facility] [place] [phone] Care Teams Marble Setter Relationship Specialty Start Date End Date eSrgei Alves PA-C PCP - General PHYSICIAN PRINCIPAL ASSOCIATE 07/04/22
--- OUTSIDE RECORDS SUMMARY | 2025-06-17 11:31 | XMS_ITS | Encounter Summary ---
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
--- OUTSIDE RECORDS SUMMARY | 2025-06-17 11:31 | XMS_ITS | Encounter Summary ---
Author Organization [facility] Address [address] [place] [address] Care Team Providers Care 3D Modeler Name Role Phone Jerry Garcia MD, Frank Ruiz Primary Care Provider Encounter Details Date Type Department Care Team (Latest Contact Info) Description 12/28/2000 Outpatient Historical [facility] Dermatology- [facility] [address] [place] [id number] Donny Hernandez MD NO ADDRESS ON FILE Benign ikmberly skin ear (Primary Dx); Other specified disease of hair and hair follicles Social History Tobacco Use Types Packs/Day Years Used Date Smoking Tobacco: Never Assessed Sex and Gender Information Value Date Recorded Sex Assigned at Not on file 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
[2025-06-17 12:03] VITALS: BP 191/89; PULSE 54; RESP 16; O2SAT 98
--- NOTE | 2025-06-17 13:22 | PC.NURSE ---
pt report called to hannah Maldonado. 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
[2025-06-17 13:23] VITALS: BP 184/84; PULSE 54; O2SAT 96
== END 2025-06-17 13:23 | disposition home or self-care (01) ==
PROVIDERS: Emergency Provider Emergency Medicine; PCP Internal Medicine
DX: S09.90XA Unspecified injury of head, initial encounter (principal); S39.012A Strain of muscle, fascia and tendon of lower back, initial encounter; Z79.02 Long term (current) use of antithrombotics/antiplatelets; Z79.82 Long term (current) use of aspirin; Z79.84 Long term (current) use of oral hypoglycemic drugs; E11.9 Type 2 diabetes mellitus without complications; I25.10 Atherosclerotic heart disease of native coronary artery without angina pectoris; I10 Essential (primary) hypertension; W19.XXXA Unspecified fall, initial encounter
CPT/HCPCS: 70450; 72125; 72131; 99284

== ENCOUNTER 2025-06-27 15:23 | Emergency (ER) | payer MEDICARE, OTHER, SELFPAY ==
[2025-06-27] VITALS (10 sets, daily range): BP systolic 145–209; BP diastolic 67–94; PULSE 53–68; RESP 13–18; TEMP 36.3; O2SAT 94–99; BMI 26.4
--- NOTE | 2025-06-27 15:34 | W.ED.FALL ---
Documented by User: TRAM Mcknight 06/27/25 18:18 HPI - Fall General: Chief Complaint: Fall Stated Complaint: fall - right arm/shoulder pain Source: patient Mode of arrival: EMS Limitations: no limitations History of Present Illness: Patient is a 75-year-old male who presents to the ED today via EMS from his assisted for evaluation following a fall. Patient states he was in his bathroom today and ready to take a shower when he felt the urge to urinate. He states he was walking to the toilet and the next thing he knew he was on the floor. He is unsure what caused him to fall but later told me it was because he slipped on the floor. According to assisted report, patient slept through breakfast and when they checked on him around lunch time they found him in the floor of his bathroom. Patient does have a history of Alzheimer's/Lewy body dementia. They report his mental status is at baseline. He is answering all of my questions appropriately at time of arrival. He has no physical complaints for me however EMS did state he was complaining of some right shoulder pain. MD complaint: fall Onset (ago): hour(s) Fall from: standing Fall witnessed: no Place fall occurred: assisted/SNF Loss of consciousness: Unsure Prolonged down time: yes Symptoms prior to fall: none Context: tripped/slipped Associated symptoms-after fall: Reports no associated symptoms; Denies abdominal pain, chest pain, confusion, headache(s), lightheadedness or neck pain Related Data Home Medications ?Medication ?Instructions ?Recorded ?Confirmed clopidogrel 75 mg tablet 1 tab PO DAILY 07/26/23 06/03/25 acetaminophen 325 mg tablet 650 mg PO QID PRN PAIN OR FEVER 05/14/24 06/03/25 Previous Rx's ?Medication ?Instructions ?Recorded aspirin 81 mg tablet,delayed 81 mg PO DAILY #90 tabs 04/27/22 release atorvastatin 40 mg tablet 40 mg PO BEDTIME #90 tabs 04/27/22 metformin 500 mg tablet 500 mg PO BID #180 tabs 04/27/22 Diabetic shoes #1 ea 05/10/23 citalopram 20 mg tablet 20 mg PO DAILY #30 tabs 07/19/23 galantamine 12 mg tablet 12 mg PO BID #180 tabs 12/03/24 Allergies Allergy/AdvReac Type Severity Reaction Status Date / Time Penicillins Allergy Unknown Unknown Verified 06/03/25 14:08 Review of Systems Const: Denies: fever(s) or chills Eyes: Denies: change in vision or blurry vision Card: Denies: chest pain, palpitations, irregular heart rhythm, lightheadedness, syncope or dyspnea on exertion Resp: Denies: dyspnea, productive cough or pain on inspiration GI: Denies: abdominal pain, nausea, vomiting, heartburn or diarrhea : Denies: difficulty urinating or dysuria Musc: Reports: joint pain (R shoulder to EMS-did not complain of this to me); Denies: neck pain or back pain Skin/Breast: Denies: rash Neuro: Denies: headache(s), numbness in extremities, weakness in extremities, sensory changes, confusion or seizure-like activity PFSH ED PFSH: Medical History B12 deficiency Diabetes mellitus History of MA (myocardial infarction) IBS (irritable bowel syndrome) GERD (gastroesophageal reflux disease) Coronary artery disease HTN (hypertension) Surgical History S/P vasectomy S/P coronary angiogram Family History Mother Stroke Hypertension Father Hypertension Dementia Family/Other Cancer Social History Smoking and tobacco/nicotine status: never used tobacco/nicotine Alcohol intake: never Substance/Drug Use: never Physical Exam Const: COMMON NORMALS: no acute distress, average body habitus, patient oriented x3, no limitations, healthy appearing, alert and well nourished GENERAL APPEARANCE: cooperative ORIENTATION/CONSCIOUSNESS: Yes awake, Yes oriented to person, Yes oriented to place and Yes oriented to time HENMT: COMMON NORMALS: normocephalic and atraumatic HEAD & SCALP: normal to inspection, normocephalic and atraumatic; no Salcedo's sign, no hematoma and no raccoon eyes FACE & SINUS: normal facial exam Eye: COMMON NORMALS: Equal, round and reactive pupils present and EOMs intact bilaterally GENERAL EYE: appearance normal, both eyes and all related structures and normal light reflex PUPIL: Yes Equal, round and reactive pupils present DIRECT OPHTHALMOSCOPY: Yes normal light reflex Neck/C-Spine: COMMON NORMALS: full ROM GENERAL: Yes normal visual inspection CERVICAL SPINE: Yes cervical ROM normal, No pain with cervical ROM, No Cervical spine tenderness, No step off deformity and No Paracervical muscle tenderness Chest: COMMONS NORMALS: normal inspection of the chest and normal palpation of entire chest wall Resp: COMMON NORMALS: normal respiratory effort and clear to auscultation bilaterally AUSCULTATION: clear to auscultation bilaterally Cardio: COMMON NORMALS: regular rate and regular rhythm RATE: regular rate RHYTHM: regular rhythm GI: COMMON NORMALS: Normal to inspection, nondistended, normoactive bowel sounds present, Soft to palpation, non-tender, No hepatosplenomegaly present and no masses INSPECTION: Yes normal to inspection and No abdominal wall ecchymosis AUSCULTATION: Yes normoactive bowel sounds PALPATION: Yes Soft to palpation and Yes No hepatosplenomegaly present Back/Pelvis: COMMON NORMALS: thoracic and lumbar spine normal to inspection, no thoracic nor lumbar tenderness and thoraco-lumbar ROM normal Extremity: COMMON NORMALS: normal to inspection and full ROM GENERAL: Yes normal exam except as noted and Yes edema OTHER: bilateral symmetrical pitting edema; bilateral feet are cool to the touch but doppler pulses were found Neuro: JOSTIN COMA SCALE: document GCS findings Jostin coma scale eye opening: Spontaneous [place] coma scale verbal response: Orientated [place] coma scale motor response: Obey commands Jostin coma scale total score: 15 COMMON NORMALS: patient oriented x3, CN's II-XII intact bilaterally, moves all extremities, no focal motor deficits and no sensory deficits noted SENSORIUM/ORIENTATION: Yes alert, Yes oriented to person, Yes oriented to place and Yes oriented to time SPEECH: Other neuro speech findings (mild dysarthria-pt and assisted states this is normal) GAIT: Yes Normal gait present Skin: COMMON NORMALS: no rashes or lesions noted GENERAL SKIN EXAM: no rashes or lesions noted TRAUMA: no lacerations or abrasions Course Vital Signs: Vital signs: Vital Signs Temperature 97.4 F L 06/27/25 15:23 Pulse Rate 65 06/27/25 21:00 Respiratory Rate 15 06/27/25 18:56 Blood Pressure 164/79 06/27/25 21:00 Pulse Oximetry 96 06/27/25 21:00 Oxygen Delivery Me thod Room Air 06/27/25 15:23 MDM - Fall Medical Decision Making Patient has been pleasant without physical complaints throughout his emergency department stay. His blood pressure has been elevated although looking at previous documentation/vital signs it is not uncommon for him to have significantly elevated blood pressures. CT imaging of his head and cervical spine showing no acute injuries. His CXR is unremarkable. Blood work including CBC, CMP, CPK, troponin series, UA all ordered based off of his history of unwitnessed fall-he did initially tell me he was not sure what caused him to fall but then later told me he thinks it was because he slipped. He did lay on the ground for a while before nursing staff found him. His CPK was elevated today at 1258. He was given a liter of IV NS here. His BUN/Cr and liver functions are normal. Baseline troponin was significantly elevated at 120-most likely secondary to the CPK elevation. He is not having any chest pain. He is EKG are nonischemic-reviewed with Dr. Perez. His 2-hour troponin showing a negative delta. Discussed with Dr. Perez who feels he can be discharged back to his assisted. Recommend pushing fluids and having CPK repeated next week through his primary care provider or provider through the assisted. Return ED precautions discussed. Medical Records I reviewed the patient's medical records. Lab Data I reviewed the patient's lab results. 06/27/25 15:34 06/27/25 15:34 Radiology Impressions Cervical Spine CT 06/27/25 15:35 IMPRESSION: 1. Curvature, straightening of the lordosis and degenerative changes. 2. No acute appearing bony abnormality. Head CT 06/27/25 15:35 IMPRESSION: 1. Atrophic changes, chronic ischemic changes with old lacunar infarct left basal ganglia. 2. No acute appearing intracranial abnormality. . Shoulder X-Ray 06/27/25 15:46 IMPRESSION: No acute bone or joint abnormality. 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 Chest X-Ray 06/27/25 16:53 IMPRESSION: Some increased density projecting over lead lower lung felt to be overlying soft tissue. No acute findings evident. Laboratory Results WBC 8.73 10^3/uL (3.29-11.43) 06/27/25 15:34 RBC 4.04 10^6/uL (3.85-5.65) 06/27/25 15:34 Hgb 12.50 g/dL (11.27-16.99) 06/27/25 15:34 Hct 37.7 % (37-53) 06/27/25 15:34 MCV 93.3 fl (82-101) 06/27/25 15:34 MCH 30.9 pg (27-33) 06/27/25 15:34 MCHC 33.2 g/dL (30-55) 06/27/25 15:34 RDW 12.7 % (12.1-15.1) 06/27/25 15:34 Plt Count 172 10^3/cmm (157-399) 06/27/25 15:34 MPV 10.7 fL (7.4-10.4) H 06/27/25 15:34 Neut % (Auto) 75.5 % 06/27/25 15:34 Lymph % (Auto) 15.6 % 06/27/25 15:34 [place] % (Auto) 7.7 % 06/27/25 15:34 Eos % (Auto) 0.5 % 06/27/25 15:34 Baso % (Auto) 0.2 % 06/27/25 15:34 Neut # (Auto) 6.60 10^3/uL (1.8-7.7) 06/27/25 15:34 Lymph # (Auto) 1.4 10^3/uL (0.8-4.8) 06/27/25 15:34 [place] # (Auto) 0.7 10^3/uL (0.2-0.9) 06/27/25 15:34 Eos # (Auto) 0.0 10^3/uL (0.0-0.8) 06/27/25 15:34 Baso # (Auto) 0.0 10^3/uL (0.0-0.1) 06/27/25 15:34 Nucleated RBC % (auto) 0 % 06/27/25 15:34 Nucleated RBCs # 0.0 /100WBC 06/27/25 15:34 Sodium 139 mmol/L (136-145) 06/27/25 15:34 Potassium 4.5 mmol/L (3.5-5.1) 06/27/25 15:34 Chloride 100 mmol/L (98-107) 06/27/25 15:34 Carbon Dioxide 24 mmol/L (22-29) 06/27/25 15:34 Anion Gap 19.5 (5-19) H 06/27/25 15:34 BUN 19 mg/dL (8-23) 06/27/25 15:34 Creatinine 0.9 mg/dL (0.7-1.2) 06/27/25 15:34 GFR Calculation Not Reportable 06/27/25 15:34 Glucose 148 mg/dL (65-115) H 06/27/25 15:34 Calculated Osmolality 293 mOsm/kg (285-295) 06/27/25 15:34 Calcium 9.1 mg/dL (8.5-10.5) 06/27/25 15:34 Total Bilirubin 1.0 mg/dL (0.15-1.2) 06/27/25 15:34 AST 42 U/L (0-40) H 06/27/25 15:34 ALT 29 U/L (0-41) 06/27/25 15:34 Alkaline Phosphatase 105 U/L (40-130) 06/27/25 15:34 Creatine Kinase 1258 U/L (39-308) H* 06/27/25 15:34 Troponin T Baseline 120 ng/L (0-15) H* 06/27/25 15:34 Troponin T 120 Minute 105.1 ng/L (0-15) H 06/27/25 17:17 Delta Troponin T -14.9 ABS# (0-10) L 06/27/25 17:17 Total Protein 6.9 g/dL (6.6-8.7) 06/27/25 15:34 Albumin 3.9 g/dL (3.5-5.2) 06/27/25 15:34 Globulin 3.0 g/dL (1.3-4.6) 06/27/25 15:34 Urine Color Yellow (Yellow) 06/27/25 16:31 Urine Appearance Clear (CLEAR) 06/27/25 16:31 Urine pH 5.5 (5-7) 06/27/25 16:31 Ur Specific [place] 1.011 (1.005-1.030) 06/27/25 16:31 Urine Protein 2+ (Negative) A 06/27/25 16:31 Urine Glucose (UA) Negative (Normal) 06/27/25 16:31 Urine Ketones Negative (Negative) 06/27/25 16:31 Urine Blood 1+ (Negative) A 06/27/25 16:31 Urine Nitrate Negative (Negative) 06/27/25 16:31 Urine Bilirubin Negative (Negative) 06/27/25 16:31 Urine Urobilinogen 0.2 mg/dL (Negative) 06/27/25 16:31 Ur Leukocyte Esterase Trace (Negative) A 06/27/25 16:31 Urine RBC 0-4 /hpf (0-2) H 06/27/25 16:31 Urine WBC 10-15 /hpf (0-5) H 06/27/25 16:31 Ur Squamous Epith Cells 0-4 /hpf (0-5) H 06/27/25 16:31 Amorphous Sediment Not Reportable 06/27/25 16:31 Urine Bacteria Trace /hpf (NONE) 06/27/25 16:31 Urine Mucus None /hpf 06/27/25 16:31 Ur Oval Fat Bodies 1+ /hpf 06/27/25 16:31 All radiology interpretation(s) finalized by discharge Discharge Plan Discharge Patient Disposition: Home Clinical Impression: Fall from slipping, Rhabdomyolysis, HTN (hypertension) Condition: Stable Prescriptions: No Action (DME) Diabetic shoes See Rx Instructions .ROUTE .MEDSUPPLY Qty: 1 0RF Rx Instructions: With 3 pairs of inserts by the shoe cory clopidogrel 75 mg tablet 1 tab PO DAILY galantamine 12 mg tablet 12 mg PO BID Qty: 180 3RF Rx Instructions: administer with AM and PM meals citalopram 20 mg tablet 20 mg PO DAILY Qty: 30 5RF aspirin 81 mg Tablet,Delayed Release (Dr/Ec) 81 mg PO DAILY Qty: 90 0RF atorvastatin 40 mg Tablet 40 mg PO BEDTIME Qty: 90 0RF metformin 500 mg tablet 500 mg PO BID Qty: 180 0RF acetaminophen 325 mg Tablet 650 mg PO QID PRN (Reason: PAIN OR FEVER) Discharge Orders: Discharge ED (Routine); Ordered 06/27/25 Ordered By: Samina Garcia Referrals: Иван Chamberlain DO [Primary Care Provider, Internal Medicine] Patient Instructions: Rhabdomyolysis (ED), Patient Portal & Terrie Instructions Activity Restrictions/Additional Instructions: As we discussed, your blood work here showing elevations to your CPK (1258) this is consistent with a condition called rhabdomyolysis-most likely from the lying on the floor for an extended amount of time following your fall. Your kidney and liver labs were unremarkable. We discussed about the need to push plenty of fluids (water) over the weekend and have this lab rechecked through primary care next week. You may return to the emergency department at anytime for any further concerns you may have. Print Language: Luxembourger Coding Level of Care Code ED Manager Electronic for Chg Fwd Documented by User: Carmelina Perez MD 06/28/25 06:34 HPI - Fall General: Chief Complaint: Fall Stated Complaint: fall - right arm/shoulder pain Related Data Home Medications ?Medication ?Instructions ?Recorded ?Confirmed clopidogrel 75 mg tablet 1 tab PO DAILY 07/26/23 06/03/25 acetaminophen 325 mg tablet 650 mg PO QID PRN PAIN OR FEVER 05/14/24 06/03/25 Previous Rx's ?Medication ?Instructions ?Recorded aspirin 81 mg tablet,delayed 81 mg PO DAILY #90 tabs 04/27/22 release atorvastatin 40 mg tablet 40 mg PO BEDTIME #90 tabs 04/27/22 metformin 500 mg tablet 500 mg PO BID #180 tabs 04/27/22 Diabetic shoes #1 ea 05/10/23 citalopram 20 mg tablet 20 mg PO DAILY #30 tabs 07/19/23 galantamine 12 mg tablet 12 mg PO BID #180 tabs 12/03/24 Allergies Allergy/AdvReac Type Severity Reaction Status Date / Time Penicillins Allergy Unknown Unknown Verified 06/03/25 14:08 [facility] ED PFS: Medical History B12 deficiency Diabetes mellitus History of MA (myocardial infarction) IBS (irritable bowel syndrome) GERD (gastroesophageal reflux disease) Coronary artery disease HTN (hypertension) Surgical History S/P vasectomy S/P coronary angiogram Family History Mother Stroke Hypertension Father Hypertension Dementia Family/Other Cancer Social History Smoking and tobacco/nicotine status: never used tobacco/nicotine Alcohol intake: never Substance/Drug Use: never Physical Exam Neuro: JOSTIN COMA SCALE: document GCS findings Jostin coma scale total score: 15 Course Vital Signs: Vital signs: Vital Signs Temperature 97.4 F L 06/27/25 15:23 Pulse Rate 65 06/27/25 21:00 Respiratory Rate 15 06/27/25 18:56 Blood Pressure 164/79 06/27/25 21:00 Pulse Oximetry 96 06/27/25 21:00 Oxygen Delivery Me thod Room Air 06/27/25 15:23 MDM - Fall Medical Decision Making Patient has been pleasant without physical complaints throughout his emergency department stay. His blood pressure has been elevated although looking at previous documentation/vital signs it is not uncommon for him to have significantly elevated blood pressures. CT imaging of his head and cervical spine showing no acute injuries. His CXR is unremarkable. Blood work including CBC, CMP, CPK, troponin series, UA all ordered based off of his history of unwitnessed fall-he did initially tell me he was not sure what caused him to fall but then later told me he thinks it was because he slipped. He did lay on the ground for a while before nursing staff found him. His CPK was elevated today at 1258. He was given a liter of IV NS here. His BUN/Cr and liver functions are normal. Baseline troponin was significantly elevated at 120-most likely secondary to the CPK elevation. He is not having any chest pain. He is EKG are nonischemic-reviewed with Dr. Perez. His 2-hour troponin showing a negative delta. Discussed with Dr. Perez who feels he can be discharged back to his assisted. Recommend pushing fluids and having CPK repeated next week through his primary care provider or provider through the assisted. Return ED precautions discussed. Discussed case with above midlevel agree with her history and plan. Patient does have mildly elevated CK but no signs of severe rhabdo this 2-hour Trope showed a negative delta he had no chest pain I agree with her that he is stable for discharge at this time. I did review all the imaging and labs as well. Lab Data 06/27/25 15:34 06/27/25 15:34 Radiology Impressions Cervical Spine CT 06/27/25 15:35 IMPRESSION: 1. Curvature, straightening of the lordosis and degenerative changes. 2. No acute appearing bony abnormality. Head CT 06/27/25 15:35 IMPRESSION: 1. Atrophic changes, chronic ischemic changes with old lacunar infarct left basal ganglia. 2. No acute appearing intracranial abnormality. . Shoulder X-Ray 06/27/25 15:46 IMPRESSION: No acute bone or joint abnormality. 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 Chest X-Ray 06/27/25 16:53 IMPRESSION: Some increased density projecting over lead lower lung felt to be overlying soft tissue. No acute findings evident. Laboratory Results WBC 8.73 10^3/uL (3.29-11.43) 06/27/25 15:34 RBC 4.04 10^6/uL (3.85-5.65) 06/27/25 15:34 Hgb 12.50 g/dL (11.27-16.99) 06/27/25 15:34 Hct 37.7 % (37-53) 06/27/25 15:34 MCV 93.3 fl (82-101) 06/27/25 15:34 MCH 30.9 pg (27-33) 06/27/25 15:34 MCHC 33.2 g/dL (30-55) 06/27/25 15:34 RDW 12.7 % (12.1-15.1) 06/27/25 15:34 Plt Count 172 10^3/cmm (157-399) 06/27/25 15:34 MPV 10.7 fL (7.4-10.4) H 06/27/25 15:34 Neut % (Auto) 75.5 % 06/27/25 15:34 Lymph % (Auto) 15.6 % 06/27/25 15:34 [place] % (Auto) 7.7 % 06/27/25 15:34 Eos % (Auto) 0.5 % 06/27/25 15:34 Baso % (Auto) 0.2 % 06/27/25 15:34 Neut # (Auto) 6.60 10^3/uL (1.8-7.7) 06/27/25 15:34 Lymph # (Auto) 1.4 10^3/uL (0.8-4.8) 06/27/25 15:34 [place] # (Auto) 0.7 10^3/uL (0.2-0.9) 06/27/25 15:34 Eos # (Auto) 0.0 10^3/uL (0.0-0.8) 06/27/25 15:34 Baso # (Auto) 0.0 10^3/uL (0.0-0.1) 06/27/25 15:34 Nucleated RBC % (auto) 0 % 06/27/25 15:34 Nucleated RBCs # 0.0 /100WBC 06/27/25 15:34 Sodium 139 mmol/L (136-145) 06/27/25 15:34 Potassium 4.5 mmol/L (3.5-5.1) 06/27/25 15:34 Chloride 100 mmol/L (98-107) 06/27/25 15:34 Carbon Dioxide 24 mmol/L (22-29) 06/27/25 15:34 Anion Gap 19.5 (5-19) H 06/27/25 15:34 BUN 19 mg/dL (8-23) 06/27/25 15:34 Creatinine 0.9 mg/dL (0.7-1.2) 06/27/25 15:34 GFR Calculation Not Reportable 06/27/25 15:34 Glucose 148 mg/dL (65-115) H 06/27/25 15:34 Calculated Osmolality 293 mOsm/kg (285-295) 06/27/25 15:34 Calcium 9.1 mg/dL (8.5-10.5) 06/27/25 15:34 Total Bilirubin 1.0 mg/dL (0.15-1.2) 06/27/25 15:34 AST 42 U/L (0-40) H 06/27/25 15:34 ALT 29 U/L (0-41) 06/27/25 15:34 Alkaline Phosphatase 105 U/L (40-130) 06/27/25 15:34 Creatine Kinase 1258 U/L (39-308) H* 06/27/25 15:34 Troponin T Baseline 120 ng/L (0-15) H* 06/27/25 15:34 Troponin T 120 Minute 105.1 ng/L (0-15) H 06/27/25 17:17 Delta Troponin T -14.9 ABS# (0-10) L 06/27/25 17:17 Total Protein 6.9 g/dL (6.6-8.7) 06/27/25 15:34 Albumin 3.9 g/dL (3.5-5.2) 06/27/25 15:34 Globulin 3.0 g/dL (1.3-4.6) 06/27/25 15:34 Urine Color Yellow (Yellow) 06/27/25 16:31 Urine Appearance Clear (CLEAR) 06/27/25 16: Urine pH 5.5 (5-7) 06/27/25 16:31 Ur Specific [place] 1.011 (1.005-1.030) 06/27/25 16: Urine Protein 2+ (Negative) A 06/27/25 16: Urine Glucose (UA) Negative (Normal) 06/27/25 16: Urine Ketones Negative (Negative) 06/27/25 16: Urine Blood 1+ (Negative) A 06/27/25 16: Urine Nitrate Negative (Negative) 06/27/25 16: Urine Bilirubin Negative (Negative) 06/27/25 16: Urine Urobilinogen 0.2 mg/dL (Negative) 06/27/25 16:31 Ur Leukocyte Esterase Trace (Negative) A 06/27/25 16: Urine RBC 0-4 /hpf (0-2) H 06/27/25 16:31 Urine WBC 10-15 /hpf (0-5) H 06/27/25 16:31 Ur Squamous Epith Cells 0-4 /hpf (0-5) H 06/27/25 16: Amorphous Sediment Not Reportable 06/27/25 16: Urine Bacteria Trace /hpf (NONE) 06/27/25 16:31 Urine Mucus None /hpf 06/27/25 16:31 Ur Oval Fat Bodies 1+ /hpf 06/27/25 16:31 Discharge Plan Discharge Patient Disposition: Home Clinical Impression: Fall from slipping, Rhabdomyolysis, HTN (hypertension) Condition: Stable Prescriptions: No Action (DME) Diabetic shoes See Rx Instructions .ROUTE .MEDSUPPLY Qty: 1 0RF Rx Instructions: With 3 pairs of inserts by the shoe cory clopidogrel 75 mg tablet 1 tab PO DAILY galantamine 12 mg tablet 12 mg PO BID Qty: 180 3RF Rx Instructions: administer with AM and PM meals citalopram 20 mg tablet 20 mg PO DAILY Qty: 30 5RF aspirin 81 mg Tablet,Delayed Release (Dr/Ec) 81 mg PO DAILY Qty: 90 0RF atorvastatin 40 mg Tablet 40 mg PO BEDTIME Qty: 90 0RF metformin 500 mg tablet 500 mg PO BID Qty: 180 0RF acetaminophen 325 mg Tablet 650 mg PO QID PRN (Reason: PAIN OR FEVER) Discharge Orders: Discharge ED (Routine); Ordered 06/27/25 Ordered By: Samina Garcia Referrals: Иван Chamberlain DO [Primary Care Provider, Internal Medicine] Patient Instructions: Rhabdomyolysis (ED), Patient Portal & Terrie Instructions Activity Restrictions/Additional Instructions: As we discussed, your blood work here showing elevations to your CPK (1258) this is consistent with a condition called rhabdomyolysis-most likely from the lying on the floor for an extended amount of time following your fall. Your kidney and liver labs were unremarkable. We discussed about the need to push plenty of fluids (water) over the weekend and have this lab rechecked through primary care next week. You may return to the emergency department at anytime for any further concerns you may have. Print Language: Luxembourger Coding Level of Care Code ED Manager Electronic for Alyssa Ulloa
--- OUTSIDE RECORDS SUMMARY | 2025-06-27 15:34 | XMS_ITS | Encounter Summary ---
Author Organization [facility] Address [address] [place] [address] Care Team Providers Care Adapted Physical Education Specialist Name Role Phone Jerry Garcia MD, Frank Ruiz Primary Care Provider Encounter Details Date Type Department Care Team (Latest Contact Info) Description 12/28/2000 Outpatient Historical [facility] Dermatology- [facility] [address] [place] [phone] Donny Hernandez MD NO ADDRESS ON FILE Benign kimberly skin ear (Primary Dx); Other specified disease of hair and hair follicles Social History Tobacco Use Types Packs/Day Years Used Date Smoking Tobacco: Never Assessed Sex and Gender Information Value Date Recorded Sex Assigned at Not on file 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
--- OUTSIDE RECORDS SUMMARY | 2025-06-27 15:34 | XMS_ITS | Encounter Summary ---
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
--- OUTSIDE RECORDS SUMMARY | 2025-06-27 15:34 | XMS_ITS | Clinical Summary ---
Author Organization [facility] Address [address] [place] [address] Care Team Providers Care Intern Architect Name Role Phone Sergei Alves PA-C Primary Care Provider [phone] Allergies No known active allergies Medications aspirin [...] 01/22/2013 RSV Vaccine Age 75+ or At [facility] (1 - 1-dose 75+ series) 01/22/2023 Influenza Vaccine (#1) 2025 06/23/2022 COVID-19 Vaccine Discontinued 06/23/2022 Insurance MEDICARE [facility] MEDICARE [facility] [place] [id number] Care Teams Intern Architect Relationship Specialty Start Date End Date Sergei Alves PA-C PCP - General PHYSICIAN FLORICULTURIST 07/04/22
--- OUTSIDE RECORDS SUMMARY | 2025-06-27 15:34 | XMS_ITS | Encounter Summary ---
Author Organization [facility] Address [address] [place] [address] Care Team Providers Care Layout Former Name Role Phone Jerry Garcia MD, Frank Ruiz Primary Care Provider Encounter Details Date Type Department Care Team (Latest Contact Info) Description 11/07/2000 Outpatient Historical [facility] Dermatology- [facility] [place] [address] [place] [phone] Donny Hernandez MD NO ADDRESS ON FILE Other specified disease of hair and hair follicles (Primary Dx); Actinic keratosis Social History Tobacco Use Types Packs/Day Years Used Date Smoking Tobacco: Never Assessed Sex and Gender Information Value Date Recorded Sex Assigned at Not on file 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
--- OUTSIDE RECORDS SUMMARY | 2025-06-27 15:34 | XMS_ITS | Clinical Summary ---
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
--- OUTSIDE RECORDS SUMMARY | 2025-06-27 15:34 | XMS_ITS | Encounter Summary ---
Author Organization 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 us Mathew Grubbs MD CHEMISTRY ORDERABLES Final Res ult INTERFACE SYSTEM Refer to clinic/hospital department [facility] CLIA# [id number] [address] [place] [id number] * RUBELLA IGG (07/24/2008 12:34 PM CDT) RUBELLA IGG Reactive Reactive [facility] Blood specimen (specimen) 07/24/2008 12:34 PM CDT 07/24/2008 12:45 PM CDT Narrative INTERFACE SYSTEM - 07/24/2008 1:53 PM CDT post offer. us Mathew Grubbs MD CHEMISTRY ORDERABLES Final Res ult INTERFACE SYSTEM Refer to clinic/hospital department [facility] CLIA# [id number] [address] [place] [id number] documented in this encounter Visit Diagnoses Not on filedocumented in this encounter Care Teams Box Sealing Machine Operator Relationship Specialty Start Date End Date Frank Edwards Jr., MD [address] [address] PCP - General Family Practice 05/28/10 documented as of this encounter
--- NOTE | 2025-06-27 15:35 | CTR_ITS ---
PROCEDURE INFORMATION: Exam: CT Head Without Contrast Exam date and time: 06/27/2025 3:56 PM Age: 75 years old Clinical indication: Injury or trauma; Fall; Blunt trauma (contusions or hematomas); Additional info: Trauma/fall TECHNIQUE: Imaging protocol: Computed tomography of the head without contrast. Radiation optimization: All CT scans at this facility use at least one of these dose optimization techniques: automated exposure control; mA and/or kV adjustment per patient size (includes targeted exams where dose is matched to clinical indication); or iterative reconstruction. COMPARISON: CT head wo con* [id number] 06/17/2025 11:34 AM RADIATION DOSE METRICS: Total DLP (mGy-cm): 1161 FINDINGS: Brain: [id number] atrophic changes. Normal hackett-white matter differentiation. Areas of decreased periventricular and subcortical white matter density consistent with chronic ischemic change. Old lacunar infarct left basal ganglia measuring 1 cm. No evidence of acute intracranial hemorrhage or mass. Calcification cavernous portions internal carotid arteries. Cerebral ventricles: Proportionate to cortical sulci. Paranasal sinuses: Paranasal sinuses appear clear. No fluid levels. Ruth bullosa middle nasal turbinates. Some hypertrophy of the left middle nasal turbinate and inferior turbinates. Mastoid air cells: Visualized mastoid air cells are well aerated. Bones: Unremarkable. No acute fracture. Soft tissues: Unremarkable. CT/CT head wo con* [id number] IMPRESSION: 1. Atrophic changes, chronic ischemic changes with old lacunar infarct left basal ganglia. 2. No acute appearing intracranial abnormality. .
--- NOTE | 2025-06-27 15:35 | CTR_ITS ---
PROCEDURE INFORMATION: Exam: CT Cervical Spine Without Contrast Exam date and time: 06/27/2025 3:56 PM Age: 75 years old Clinical indication: Injury or trauma; Fall; Blunt trauma; Additional info: Trauma/fall TECHNIQUE: Imaging protocol: Computed tomography of the cervical spine without contrast. Radiation optimization: All CT scans at this facility use at least one of these dose optimization techniques: automated exposure control; mA and/or kV adjustment per patient size (includes targeted exams where dose is matched to clinical indication); or iterative reconstruction. COMPARISON: CT cervical spin wo con* [id number] 06/17/2025 11:34 AM RADIATION DOSE METRICS: Total DLP (mGy-cm): 265.3 FINDINGS: Bones: Mild curvature convexity to the left. Straightening of the lordosis. Degenerative changes throughout the cervical spine. Anterior and posterior osteophytes at C3 through C7. Degenerative changes facet joints most marked mid and upper cervical spine on the right. Degenerative disc disease at all levels with narrowing, some irregularity of the endplates, subcortical cystic changes. Bilateral ankylosis C2-C3 facet joints. Mild narrowing right C3-C4 intervertebral foramen, bilateral C5-C6 intervertebral foramen. No central canal stenosis. Lungs: Lung apices are clear. Soft tissues: No masses or significant adenopathy. CT/CT cervical spin wo con* [id number] IMPRESSION: 1. Curvature, straightening of the lordosis and degenerative changes. 2. No acute appearing bony abnormality.
--- OUTSIDE RECORDS SUMMARY | 2025-06-27 15:35 | XMS_ITS | Patient Health Record ---
Author Organization [facility] Address [address] [place] [address] Support Name Relationship Address Phone Gm Jean Guarantor Unknown [phone] Allergies Allergen (clinical drug ingredient) Drug/Non Drug [...] Problem Status W/U Status Risk Notes Problem 6279897 Hallucinations (R44.3) Active confirmed Problem 906879013 Cerebrovascular accident (CVA), unspecified mechanism (I63.9) Active confirmed Plan Of Treatment No Information Insurance Providers Payer Name Payer Address Payer Phone Subscriber Number Group Number Insured Name Patient Relationship to Insured Coverage Start Date Coverage End Date MEDICARE [address] [place] [id number] [phone] [id number] Gm Jean Self - patient is the insured [employer] [facility] [place] [facility] [id number] [employer] [place] [id number] Gm Jean Self - patient is the insured Medical (General) History Surgical History Surgery Date(Month/Year) heart Hospitalization History Reason Date(Month/Year) stroke ( 2nd Possible stroke)
[2025-06-27 15:44] LABS: Hematocrit 37.7 % (37-53); Hemoglobin 12.50 g/dL (11.27-16.99); Mean Corpuscular HGB Conc 33.2 g/dL (30-55); Mean Corpuscular Hemoglobin 30.9 pg (27-33); Mean Corpuscular Volume 93.3 fl (82-101); Nucleated Red Blood Cells % 0 %; Platelet Count 172 10^3/cmm (157-399); Red Blood Count 4.04 10^6/uL (3.85-5.65); White Blood Count 8.73 10^3/uL (3.29-11.43)
--- NOTE | 2025-06-27 15:46 | XR_ITS ---
WS: [id number] XR shoulder RT min 2V* [id number] REASON FOR EXAM: fall FINDINGS: No acute fracture. Acromioclavicular joint intact with mild narrowing and minimal subchondral sclerosis. Glenohumeral joint intact with mild narrowing of the joint space and mild subchondral sclerosis. XR/XR shoulder RT min 2V* [id number] IMPRESSION: No acute bone or joint abnormality. 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
--- NOTE | 2025-06-27 15:46 | ECG_ITS ---
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 Measurements Intervals [place] Rate: 52 P: 6 MS: 253 QRS: -24 QRSD: 100 T: 8 QT: 446 QTc: 419 Interpretive Statements SINUS BRADYCARDIA WITH FIRST DEGREE AV BLOCK ANTEROSEPTAL MYOCARDIAL INFARCTION , OF INDETERMINATE AGE [40+ ms Q WAVE IN V1-V4] Compared to ECG 04/11/2024 16:31:51 Myocardial infarct finding now present Sinus rhythm no longer present Electronically Signed On 06-28-2025 14:33:45 CDT by Gerardo Worrell M.D. [email or web address]
[2025-06-27 16:17] LABS: Alanine Aminotransferase 29 U/L (0-41); Albumin Level 3.9 g/dL (3.5-5.2); Alkaline Phosphatase 105 U/L (40-130); Aspartate Amino Transferase 42 U/L (0-40); Blood Urea Nitrogen 19 mg/dL (8-23); Calcium 9.1 mg/dL (8.5-10.5); Carbon Dioxide 24 mmol/L (22-29); Chloride 100 mmol/L (98-107); Creatinine Clr Calc Pharmacy 81.8876; Globulin 3.0 g/dL (1.3-4.6); Glucose 148 mg/dL (65-115); Osmolality Calculated 293 mOsm/kg (285-295); Sodium 139 mmol/L (136-145); Total Protein 6.9 g/dL (6.6-8.7)
[2025-06-27 16:19] LABS: Anion Gap 19.5 (5-19); Potassium 4.5 mmol/L (3.5-5.1); Troponin(5th) Baseline 120 ng/L (0-15)
[2025-06-27 16:43] LABS: Glucose Urine UA Negative (Normal); Nitrate Urine Negative (Negative); Specific Gravity, Urine 1.011 (1.005-1.030)
--- NOTE | 2025-06-27 16:53 | XRR_ITS ---
PROCEDURE INFORMATION: Exam: XR Chest Exam date and time: 06/27/2025 5:22 PM Age: 75 years old Clinical indication: Injury or trauma; Fall; Blunt trauma (contusions or hematomas) TECHNIQUE: Imaging protocol: Radiologic exam of the chest. Views: 1 view. COMPARISON: CR XR chest 1V portable [id number] 04/11/2024 4:20 PM FINDINGS: Lungs: Unremarkable. No consolidation. Increased density laterally projected over left lower lung felt to represent overlying soft tissue. Pleural spaces: Unremarkable. No pleural effusion. No pneumothorax. Heart/Mediastinum: Borderline cardiomegaly. Mild tortuosity thoracic aorta. Bones/joints: Mild right convexity thoracic scoliosis with degenerative changes. Upper abdomen: Unremarkable. XR/XR chest 1V portable [id number] IMPRESSION: Some increased density projecting over lead lower lung felt to be overlying soft tissue. No acute findings evident.
[2025-06-27 16:59] LABS: Add Urine Microscopic? YES
[2025-06-27] MEDS: hyDRALAzine 20 mg/mL INJ 1 mL 5 MG IVP (17:00)
[2025-06-27 17:05] LABS: Oval Fat Bodies Urine 1+ /hpf
[2025-06-27 17:57] LABS: Troponin 5 2HR Delta -14.9 ABS# (0-10)
[2025-06-27 17:58] LABS: Troponin 5 2HR 105.1 ng/L (0-15)
[2025-06-27] MEDS: hyDRALAzine 20 mg/mL INJ 1 mL 10 MG IVP (18:00)
--- NOTE | 2025-06-27 18:06 | ECG_ITS ---
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 Measurements Intervals [place] Rate: 65 P: 20 NE: 243 QRS: -24 QRSD: 96 T: 11 QT: 421 QTc: 439 Interpretive Statements SINUS RHYTHM WITH FIRST DEGREE AV BLOCK POSSIBLE ANTERIOR MYOCARDIAL INFARCTION , PROBABLY OLD [30 ms Q WAVE IN V3/V4, OR R < 0.2 mV IN V4] Compared to ECG 06/27/2025 15:46:09 Sinus bradycardia no longer present Myocardial infarct finding still present Electronically Signed On 06-28-2025 14:40:24 CDT by Gerardo Worrell M.D. [email or web address]
--- NOTE | 2025-06-27 18:24 | PC.NURSE ---
report called to Kylie and Kimmy Park, no further questions
== END 2025-06-27 21:01 | disposition home or self-care (01) ==
PROVIDERS: Emergency Provider Physician Assistant; PCP Internal Medicine
DX: M62.82 Rhabdomyolysis (principal); I10 Essential (primary) hypertension; Z79.02 Long term (current) use of antithrombotics/antiplatelets; Z79.82 Long term (current) use of aspirin; Z79.84 Long term (current) use of oral hypoglycemic drugs; I25.10 Atherosclerotic heart disease of native coronary artery without angina pectoris; E11.9 Type 2 diabetes mellitus without complications
CPT/HCPCS: 36415; 70450; 71045; 72125; 73030; 80053; 81001; 82550; 84484; 85025; 93005; 96361; 96374; 96375; 96376; 99285; J0360; J7030; J9999